=== PATIENT | female | born 1935 | race Caucasian/White ===

== ENCOUNTER 2016-08-05 12:11 | Observation (INO) ==
[2016-08-05 13:15] LABS: Bilirubin,Urine Negative (Negative); Blood,Urine Small (Negative); Clarity,Urine Cloudy (Clear); Color,Urine Yellow (Yellow); Glucose,Urine (UA) Normal (Normal); Ketones,Urine Negative (Negative); Leukocyte Esterase,Urine Trace (Negative); Nitrite,Urine Positive (Negative); Protein,Urine Negative (Neg-Trace); Specific Gravity,Urine 1.021 (1.010-1.025); Urobilinogen,Urine Normal (Normal)
[2016-08-05 13:17] LABS: Bacteria,Urine Many per hpf (None-Few); Hyaline Casts,Urine None Seen per lpf (None-Few); RBC,Urine 0-3 per hpf (0-3); Squamous Epithelial Cell,Urine Many per lpf (None-Few)
[2016-08-05 13:58] LABS: Basophils # 0.1 K/mcL (0.0-0.2); Basophils % 0.6 %; Eosinophils % 0.4 %; Hematocrit 35.3 % (35.3-44.9); Hemoglobin 11.7 g/dL (11.5-15.4); Lymphocytes # 1.7 K/mcL (0.6-4.6); Mean Corpuscular HGB Conc 33.1 g/dL (31.6-35.5); Mean Corpuscular Hemoglobin 32.9 pg (28.0-33.3); Mean Corpuscular Volume 99.2 fL (83.0-100.0); Mean Platelet Volume 9.1 fL (9.4-12.4); Monocytes # 0.6 K/mcL (0.0-1.3); Monocytes % 6.6 %; Neutrophils # 6.9 K/mcL (1.6-8.9); Platelet Count 331 K/mcL (140-400); Red Blood Count 3.56 M/mcL (3.82-4.97); Red Cell Distribution Width 13.6 % (11.5-14.5); Segmented Neutrophils % 73.4 %
[2016-08-05 14:09] LABS: BUN/Creatinine Ratio 23 (6-26); Blood Urea Nitrogen 17 mg/dL (7-20); Calcium 8.7 mg/dL (8.6-10.8); Carbon Dioxide 24 mEq/L (19-29); Chloride 105 mEq/L (98-109); Glucose 77 mg/dL (70-99); Osmolality,Calculated 282 (280-300); Sodium 136 mEq/L (136-145); eGFR For African Americans > 60 (> 60); eGFR For Non-African Americans > 60 (> 60)
--- NOTE | 2016-08-05 15:12 | Emergency Department Note ---
Disposition Clinical Impression: Urinary tract infection, Pleural effusion, Delirium due to another medical condition Disposition: Admitted As Inpatient Condition: Fair Referrals: NO,PCP [Primary Care Provider] - Forms: ED Satisfaction Letter Time of Disposition: 15:15 Altered Mental Status HPI - General Chief Complaint: ED Altered Mental Status Stated Complaint: AMS Time Seen by Provider: 08/05/16 12:34 Source: patient, EMS Limitations: altered mental status Nursing Notes Reviewed: Yes Vital Signs Reviewed: Yes - History of Present Illness HPI Narrative: 81-year-old female presents to emergency room for confusion. Family noticed her started getting confused last evening. They state she has been like this in the past and she has had urinary tract infections or just infections in general. Patient was sent in for evaluation. There is other johnson no reports of any vomiting or diarrhea. No chest pain or shortness of breath. No other complaints. No new medications. MD complaint: altered mental status, confusion Onset (ago): day(s) (1) Timing confirmed by: family member Pain Severity: moderate Pain Scale: 0 Consistency of Symptoms: waxing and waning Associated symptoms: Reports: denies other symptoms - Related Data Home Medications Medication Instructions Recorded Confirmed Citalopram [CeleXA] 20 mg PO QAM 09/14/15 04/06/16 Esomeprazole Magnesium [Nexium] 40 mg PO QPM 09/14/15 04/06/16 Metoprolol XL (24 HR) Succ [Toprol 50 mg PO QAM 09/14/15 04/06/16 Xl] Simvastatin [Zocor] 20 mg PO QPM 09/14/15 04/06/16 Albuterol Sulfate [Proair Hfa] 1 puff IH Q4-6H PRN 09/17/15 04/06/16 Budesonide/Formoterol 160/4.5 2 puff IH BIDR 09/17/15 04/06/16 [Symbicort 160/4.5] HYDROcodone/Acet 7.5/325 mg [[place] 1 tab PO QID PRN 09/17/15 04/06/16 7.5-325 mg] Albuterol Neb [Proventil Neb] 2.5 mg IH Q4HR 01/29/16 04/06/16 Magnesium Oxide [Magnesium] 400 mg PO DAILY 01/29/16 04/06/16 Donepezil [Aricept] 10 mg PO HS 04/06/16 04/06/16 Fluticasone Propionate Nasal 1 spray NS DAILY 04/06/16 04/06/16 [Flonase] Previous Rx's Medication Instructions Recorded Losartan/HCTZ [Hyzaar 50-12.5 1 tab PO QPM #0 04/07/16 Tablet] Nitrofurantoin (BID) [Macrobid] 100 mg PO BID #20 capsule 04/07/16 Allergies Allergy/AdvReac Type Severity Reaction Status Date / Time No Known Allergies Allergy Verified 09/14/15 10:06 Limitations: ROS unobtainable due to patients medical condition (Due to the patient's confusion) Past Medical History - Past Medical History Medical history: Reports: atrial fibrillation, COPD, dementia, hypertension Surgical history: Reports: orthopedic, other, other Psychiatric history: Reports: no psych history - Social History Smoking Status: Current every day smoker Smokeless Tobacco Status: No Alcohol use: Reports: none Drug use: Reports: none Physical Exam - General Limitations: altered mental status General appearance: alert, in no apparent distress - Head Head exam: atraumatic, normocephalic - Eye Eye exam: Present: normal appearance, PERRL, EOMI - ENT ENT exam: normal exam, normal oropharynx - Neck Neck exam: Present: normal inspection, full ROM, trachea midline - Chest Chest inspection: Present: normal inspection, symmetric chest wall rise - Respiratory Respiratory exam: Present: normal lung sounds bilaterally. Absent: respiratory distress - Cardiovascular Cardiovascular exam: Present: regular rate, normal rhythm - Abdominal Exam Abdominal exam: Present: soft, Non-Tender. Absent: tenderness - Extremities Exam Extremities exam: Present: normal inspection, full ROM, normal capillary refill. Absent: tenderness - Back Exam Back exam: Present: normal inspection - Neurological Exam Neurological exam: Present: alert, CN II-XII intact, other (Patient can tell you her name but she also tells her that she is 17 years old. She could tell me that she was in the emergency room.) - Psychiatric Psychiatric exam: Present: normal affect Course Course Narrative: Patient's lab work revealed evidence of urinary tract infection as well as a possible right sided lung infection. The radiologist noted some changes in the right lung associated with a right pleural effusion that could be infectious. Her urine had nitrites in it. I have ordered IV Rocephin. Spoke with the hospitalist. Patient will be admitted. Vital Signs Temperature 98.8 F 08/05/16 12:13 Pulse Rate 69 08/05/16 12:13 Respiratory Rate 14 08/05/16 12:13 Blood Pressure 140/69 08/05/16 12:13 O2 Sat by Pulse Oximetry 96 08/05/16 12:13 Temperature 98.8 F 08/05/16 12:13 Pulse Rate 64 08/05/16 13:54 Respiratory Rate 14 08/05/16 13:54 Blood Pressure 121/66 08/05/16 13:54 O2 Sat by Pulse Oximetry 96 08/05/16 13:54 Oxygen Delivery Oxygen Delivery Room Air Altered Mental Status - Medical Records Medical records reviewed: Yes I reviewed the patient's medical records. - Lab Data Lab results reviewed: Yes I reviewed the patient's lab results. Result diagrams: 08/05/16 13:52 08/05/16 13:52 Lab Results 08/05/16 08/05/16 08/05/16 Range/Units 13:10 13:52 13:52 WBC 9.4 (4.3-11.1) K/mcL RBC 3.56 L (3.82-4.97) M/mcL Hgb 11.7 (11.5-15.4) g/dL Hct 35.3 (35.3-44.9) % MCV 99.2 (83.0-100.0) fL MCH 32.9 (28.0-33.3) pg MCHC 33.1 (31.6-35.5) g/dL RDW 13.6 (11.5-14.5) % Plt Count 331 (140-400) K/mcL MPV 9.1 L (9.4-12.4) fL Immature Gran % 1.0 (0-4) % Seg Neutrophils % 73.4 % Lymphocytes % 18.0 % Monocytes % 6.6 % Eosinophils % 0.4 % Basophils % 0.6 % Neutrophils # 6.9 (1.6-8.9) K/mcL Lymphocytes # 1.7 (0.6-4.6) K/mcL Monocytes # 0.6 (0.0-1.3) K/mcL Eosinophils # 0.0 (0.0-0.6) K/mcL Basophils # 0.1 (0.0-0.2) K/mcL Sodium 136 (136-145) mEq/L Potassium 4.0 (3.5-4.5) mEq/L Chloride 105 (98-109) mEq/L Carbon Dioxide 24 (19-29) mEq/L BUN 17 (7-20) mg/dL Creatinine 0.73 (0.57-1.11) mg/dL Est GFR ( Amer) > 60 (> 60) Est GFR (Non-Af Amer) > 60 (> 60) BUN/Creatinine Ratio 23 (6-26) Glucose 77 (70-99) mg/dL Calculated Osmolality 282 (280-300) Calcium 8.7 (8.6-10.8) mg/dL Troponin I (0-0.03) ng/mL Urine Color Yellow (Yellow) Urine Clarity Cloudy A (Clear) Urine pH 5.0 (5.0-8.0) pH Units Ur Specific [place] 1.021 (1.010-1.025) Urine Protein Negative (Neg-Trace) mg/dL Urine Glucose (UA) Normal (Normal) mg/dL Urine Ketones Negative (Negative) mg/dL Urine Blood Small H (Negative) Urine Nitrite Positive A (Negative) Urine Bilirubin Negative (Negative) Urine Urobilinogen Normal (Normal) mg/dL Ur Leukocyte Esterase Trace H (Negative) Urine Microscopic RBC 0-3 (0-3) per hpf Urine Microscopic WBC 5-15 H (0-3) per hpf Ur Squamous Epith Cells Many H (None-Few) per lpf Urine Bacteria Many H (None-Few) per hpf Hyaline Casts None Seen (None-Few) per lpf Ur Culture Indicated? YES A (NO) 08/05/16 Range/Units 13:52 WBC (4.3-11.1) K/mcL RBC (3.82-4.97) M/mcL Hgb (11.5-15.4) g/dL Hct (35.3-44.9) % MCV (83.0-100.0) fL MCH (28.0-33.3) pg MCHC (31.6-35.5) g/dL RDW (11.5-14.5) % Plt Count (140-400) K/mcL MPV (9.4-12.4) fL Immature Gran % (0-4) % Seg Neutrophils % % Lymphocytes % % Monocytes % % Eosinophils % % Basophils % % Neutrophils # (1.6-8.9) K/mcL Lymphocytes # (0.6-4.6) K/mcL Monocytes # (0.0-1.3) K/mcL Eosinophils # (0.0-0.6) K/mcL Basophils # (0.0-0.2) K/mcL Sodium (136-145) mEq/L Potassium (3.5-4.5) mEq/L Chloride (98-109) mEq/L Carbon Dioxide (19-29) mEq/L BUN (7-20) mg/dL Creatinine (0.57-1.11) mg/dL Est GFR ( Amer) (> 60) Est GFR (Non-Af Amer) (> 60) BUN/Creatinine Ratio (6-26) Glucose (70-99) mg/dL Calculated Osmolality (280-300) Calcium (8.6-10.8) mg/dL Troponin I 0.02 (0-0.03) ng/mL Urine Color (Yellow) Urine Clarity (Clear) Urine pH (5.0-8.0) pH Units Ur Specific [place] (1.010-1.025) Urine Protein (Neg-Trace) mg/dL Urine Glucose (UA) (Normal) mg/dL Urine Ketones (Negative) mg/dL Urine Blood (Negative) Urine Nitrite (Negative) Urine Bilirubin (Negative) Urine Urobilinogen (Normal) mg/dL Ur Leukocyte Esterase (Negative) Urine Microscopic RBC (0-3) per hpf Urine Microscopic WBC (0-3) per hpf Ur Squamous Epith Cells (None-Few) per lpf Urine Bacteria (None-Few) per hpf Hyaline Casts (None-Few) per lpf Ur Culture Indicated? (NO) - Radiology Data Radiology results reviewed: Yes I reviewed the patient's radiology results. TPA Checklist - LKW: 3-4.5 hrs Add. Contraindications Patient/family understanding: The patient/family members have been counseled and understood the risk, benefit , and alternatives of treatment.
[2016-08-05] MEDS ORDERED: Ipratropium/Albuterol Neb 3 ML IH PRN (15:24)
[2016-08-05] MEDS ORDERED: Ibuprofen 400 MG TABLET PO PRN (15:25)
[2016-08-05] MEDS ORDERED: Ondansetron 4 MG/2 ML VIAL IVP PRN (15:25)
[2016-08-05] MEDS ORDERED: Naloxone 0.4 MG/ML INJ IVP PRN (15:25)
[2016-08-05] MEDS ORDERED: Acetaminophen 325 MG TABLET PO PRN (15:25)
--- NOTE | 2016-08-05 15:33 | Internal Med History&Physical ---
Date of Encounter: 08/05/16 Time of Encounter: 15:31 Assessment and Plan (1) Acute encephalopathy Current visit: No Status: Acute Acute metabolic encephalopathy likely secondary to urinary tract infection Send urine culture Continue Rocephin Fall precautions (2) Pleural effusion Current visit: Yes Status: Acute Right pleural effusion moderate in size Unknown etiology, check an echocardiogram Start Lasix IV, consider thoracentesis if not improving or CT scan of the chest (3) Urinary tract infection Current visit: Yes Status: Acute Qualifiers: Urinary tract infection type: acute cystitis Hematuria presence: without hematuria Qualified Code(s): N30.00 - Acute cystitis without hematuria (4) COPD (chronic obstructive pulmonary disease) with emphysema Current visit: No Status: Acute Chronic respiratory failure Continue DuoNeb and oxygen Qualifiers: Emphysema type: panlobular Qualified Code(s): J43.1 - Panlobular emphysema (5) Dementia Current visit: No Status: Chronic Qualifiers: Dementia type: unspecified type Dementia behavioral disturbance: without behavioral disturbance Qualified Code(s): F03.90 - Unspecified dementia without behavioral disturbance (6) Hypertension Current visit: No Status: Chronic Omeprazole for GI prophylaxis and suppertime his heparin for DVT prophylaxis. The patient will be admitted as inpatient, she is expected to stay more than 2 midnights. Full code. Time spent on this admission 45 minutes. She had risk for acute encephalopathy and right pleural effusion Qualifiers: Hypertension type: essential hypertension Qualified Code(s): I10 - Essential (primary) hypertension Internal Medicine - H&P: HPI Chief complaint: Altered mental status Admitted From: Emergency Dept History of present illness: Ms. Iqbal is a 81 year old female with a past medical history of dementia, COPD oxygen dependent, recurrent urinary tract infections discharged back in March 2016 which she was treated for acute metabolic encephalopathy due to UTI. Again she comes with some confusion that started last night and has been progressively getting worse. Her UA shows positive nitrates, 15 white blood cells and many bacteria. Also, her chest x-ray shows a right pleural effusion. CT scan of the head is unremarkable. The patient denies any complaints although she is disoriented in time and not as sharp as she usually eats according to her family members. Denies dysuria but has not been eating well. Unable to provide history Past Med Surg Social Fam HX - Past Medical History Medical history: atrial fibrillation (Not on anticoagulation), COPD (Oxygen dependent, mainly at night and as needed 2 L), dementia, hypertension, other ( Recurrent urinary tract infections with pansensitive Escherichia coli and Citrobacter, chronic respiratory failure, dementia, acute renal failure, hyperlipidemia, depression, tobacco use, recurrent falls) Psychiatric history: no psych history - Past Surgical History Surgical History: orthopedic, other, other (Right hip surgery, bladder surgery and carpal tunnel surgery) - Social History Smoking Status: Current every day smoker Packs per day: Used to smoke 2 packs per day, currently one cigarette daily Smokeless Tobacco Status: No Alcohol use: none Drug use: none - Family History Mother Living Status: Hx Family Cardiac Disorders: Yes (HTN) Hx Family Cancer: Yes Father Living Status: Hx Family Cardiac Disorders: Yes (hypertension) Hx Family Respiratory Disorders: Yes (TB) - Additional Family History Additional family history: Mother with hypertension and father with hypertension and tuberculosis Internal Medicine - H&P: Meds Citalopram [CeleXA] 20 mg PO QAM 09/14/15 [History] Esomeprazole Magnesium [Nexium] 40 mg PO QPM 09/14/15 [History] Metoprolol XL (24 HR) Succ [Toprol Xl] 50 mg PO QAM 09/14/15 [History] Simvastatin [Zocor] 20 mg PO QPM 09/14/15 [History] Albuterol Sulfate [Proair Hfa] 1 puff IH Q4-6H PRN 09/17/15 [History] Budesonide/Formoterol 160/4.5 [Symbicort 160/4.5] 2 puff IH BIDR 09/17/15 [ History] HYDROcodone/Acet 7.5/325 mg [[place] 7.5-325 mg] 1 tab PO QID PRN 09/17/15 [ History] Albuterol Neb [Proventil Neb] 2.5 mg IH Q4HR 01/29/16 [History] Magnesium Oxide [Magnesium] 400 mg PO DAILY 01/29/16 [History] Donepezil [Aricept] 10 mg PO HS 04/06/16 [History] Fluticasone Propionate Nasal [Flonase] 1 spray NS DAILY 04/06/16 [History] Losartan/HCTZ [Hyzaar 50-12.5 Tablet] 1 tab PO QPM #0 09/19/16 [Rx] Nitrofurantoin (BID) [Macrobid] 100 mg PO BID #20 capsule 04/07/16 [Rx] Allergies No Known Allergies Allergy (Verified 09/14/15 10:06) All Systems PM: A 10-system review of systems was performed and is negative for pertinent findings except as documented above in the HPI. Review of systems: Unable to complete review of systems due to the patient's confusion - Constitutional Vitals: Temp Pulse Resp BP Pulse Ox 98.8 F 66 14 135/61 95 08/05/16 12:13 08/05/16 15:26 08/05/16 15:26 08/05/16 15:26 08/05/16 15:26 General appearance: Present: A&O X 2, underweight - Head Head exam: Present: atraumatic, normocephalic - Eye Eye exam: Present: PERRL, conjuntiva pink, sclera anicteric Pupils: Present: PERRL - Neck Neck exam general surgery: Present: supple, trachea midline. Absent: lymphadenopathy - Respiratory Respiratory exam: Present: decreased breath sounds (Blunted breath sounds on the right base), CTAB. Absent: accessory muscle use, rales, rhonchi, wheezes - Cardiovascular Cardiovascular exam: Present: RRR, +S1, +S2. Absent: diastolic murmur, gallop, rubs, systolic murmur - GI/Abdominal GI/Abdominal exam: Present: normal bowel sounds, soft, no peritoneal signs. Absent: distended, tenderness - Extremities Exam Extremities exam: Present: warm, radial pulses palpable and symetrical. Absent : calf tenderness, cyanotic, pedal edema - Neurological Exam Neurological exam: Present: CN II-XII intact, no focal deficits. Absent: oriented X3, pronater drift, facial droop, speech deficit - Skin Skin exam: Present: dry, intact Internal Med - H&P Results - Labs CBC & Chem 7: 08/05/16 13:52 08/05/16 13:52 Labs: Short CBC 08/05/16 Range/Units 13:52 WBC 9.4 (4.3-11.1) K/mcL Hgb 11.7 (11.5-15.4) g/dL Hct 35.3 (35.3-44.9) % Plt Count 331 (140-400) K/mcL Neutrophils # 6.9 (1.6-8.9) K/mcL BMP 08/05/16 13:52 Sodium 136 Potassium 4.0 Chloride 105 Carbon Dioxide 24 BUN 17 Creatinine 0.73 Glucose 77 Calcium 8.7 Cardiac Enzymes 08/05/16 Range/Units 13:52 Troponin I 0.02 (0-0.03) ng/mL Urine 08/05/16 Range/Units 13:10 Urine Color Yellow (Yellow) Urine Clarity Cloudy A (Clear) Urine pH 5.0 (5.0-8.0) pH Units Ur Specific [place] 1.021 (1.010-1.025) Urine Protein Negative (Neg-Trace) mg/dL Urine Glucose (UA) Normal (Normal) mg/dL - Impressions ITS Impressions Chest X-Ray 08/05/16 12:45 IMPRESSION: Moderate right pleural effusion of uncertain etiology with compressive right basilar atelectasis D/ / Aj Devries MD / Aj Devries MD Interpreting Provider: Aj Devries MD Head CT 08/05/16 12:45 IMPRESSION: No acute intracranial abnormality. D/ / Aj Devries MD / Aj Devries MD Interpreting Provider: Aj Devries MD
[2016-08-05] MEDS: Ipratropium/Albuterol Neb 3 ML IH SCH ×2 (16:31→22:04)
[2016-08-05] MEDS: Furosemide 40 MG/4 ML VIAL IV SCH (16:33)
[2016-08-05] MEDS: Nicotine 21 MG PATCH.TD24 TD SCH (16:34)
[2016-08-05] MEDS: Losartan/HCTZ 50-12.5 TABLET PO SCH (18:04)
--- NOTE | 2016-08-05 18:04 | Electrocardiograph Report ---
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
[2016-08-05] MEDS: *HR* Heparin 5,000 UNIT/ML VIAL SQ SCH (21:36)
[2016-08-05] MEDS: Budesonide/Formoterol 160/4.5 MDI IH SCH (22:04)
[2016-08-06] MEDS: Ipratropium/Albuterol Neb 3 ML IH SCH ×4 (04:11→22:44)
[2016-08-06 06:14] LABS: BUN/Creatinine Ratio 25 (6-26); Blood Urea Nitrogen 20 mg/dL (7-20); Carbon Dioxide 20 mEq/L (19-29); Chloride 100 mEq/L (98-109); Chol/HDL Ratio 2.6 (0-4.9); Cholesterol 127 mg/dL (< 200); Glucose 76 mg/dL (70-99); HDL Cholesterol 49 mg/dL (40-59); LDL Cholesterol,Calculated 56 mg/dL (0-99); Osmolality,Calculated 283 (280-300); Potassium 3.3 mEq/L (3.5-4.5); Sodium 136 mEq/L (136-145); Triglycerides 111 mg/dL (< 150); eGFR For African Americans > 60 (> 60); eGFR For Non-African Americans > 60 (> 60)
[2016-08-06] MEDS: Nicotine 21 MG PATCH.TD24 TD SCH (09:25)
[2016-08-06] MEDS: Metoprolol XL (24 HR) Succ 50 MG TAB.ER.24H PO SCH (09:25)
[2016-08-06] MEDS: *HR* Heparin 5,000 UNIT/ML VIAL SQ SCH ×2 (09:26→21:28)
[2016-08-06] MEDS: Furosemide 40 MG/4 ML VIAL IV SCH (09:26)
[2016-08-06] MEDS: Budesonide/Formoterol 160/4.5 MDI IH SCH ×2 (10:08→22:44)
--- NOTE | 2016-08-06 10:26 | ECHO - Doppler Report ---
Echocardiogram Name: Juani Iqbal Date of Study: 08/05/2016 Date: 1935 Ht: 64.0 in Medical Record#: [id number] Age: 81 Wt: 94.0 lb Gender: Female BSA: 1.42 Order #: [id number] Location: [facility] Room #: 3B24 Reading Physician: Clemencia Williamson DO Medical Coding Manager: Brandi Meier RDCS Ordering Physician: Colten Alegria MD Primary Physician: None Indications: Right Pleural Effusion Impressions: Technically challenging study due to poor echo images. Only subcostal view was able to be obtained. LV systolic function is mildly reduced by quantification. RV size and function appear normal. No obvious valvular abnormalities although valves were not well visualized and Doppler interrogation was suboptimal. No evidence for pulmonary hypertension. Recommend repeat study when patient is able to cooperate. Findings: Study Quality * Technically sub-optimal due to poor echocardiographic windows. Only subcostal images were obtained. ECG Findings * Normal sinus rhythm. Aortic Valve * No aortic regurgitation. * Trileaflet aortic valve. * Mildly calcified aortic valve leaflets. * No aortic stenosis. Mitral Valve * No mitral regurgitation. * No mitral stenosis. * Not well visualized. Tricuspid Valve * Tricuspid valve not well visualized. * Trace tricuspid regurgitation. * Estimated RA pressure is 3 mmHg. * Estimated RVSP is 25 mmHg. * No pulmonary hypertension. Pulmonic Valve * Pulmonic valve is not well visualized. * No pulmonic stenosis. * No pulmonic regurgitation. Pulmonary Artery * Pulmonary artery not well visualized. Right Ventricle * Normal right ventricular structure and function. Left Atrium * Left atrium is not well visualized. Right Atrium * Right atrium is not well visualized. Left Ventricle * Mild left ventricular diastolic dysfunction. * Atypical septal motion. * Visually, LV function may be mildly reduced. By Baez method, LV systolic function is mildly reduced. * Unable to evaluate regional wall motion. Interatrial Septum * No evidence of PFO by color Doppler. IVC * Normal IVC dimensions and inspiratory collapse. Pericardium * There is no pericardial effusion present. Aorta * Not well visualized. History Hypertension Hypercholesteremia Family History of CAD 10/17/2013 a Previous Echo was performed. Measurements: BP: 124/ 71 2D Normal Values IVSd: .72 cm 0.6 - 1.0 cm LVIDd: 3.46 cm 3.7 - 5.6 cm LVPWd: .77 cm 0.6 - 1.1 cm LVIDs: 2.22 cm 1.5 - 3.6 cm %FS: 35.80 cm >25 % LA volume: 17 Mitral Valve Peak E:.58 m/sec Peak A:.97 m/sec E/A Ratio:0.6 Peak E' Lat Yuri:5.84 cm/s Peak E' Med Yuri:4.85 cm/s E/E' Lat Ratio:9.9 E/E' Med Ratio:12 Tricuspid Valve TV Regurg Peak Grad: 22.00mmHg TV Regurg Peak Yuri: 2.34m/sec Updated by Clemencia Williamson on 08/06/2016 10:13:54 AM electronically signed on 08/06/2016 10:20:20 AM with status of Final Wall Motion Levi: 1=Normal, 2=Hypokinesis, 3=Akinesis, 4=Dyskinesis, 5=Aneurysmal, 6=Hyperkinetic, X=Not Visualized (Blank)=Missing
--- NOTE | 2016-08-06 14:18 | Internal Med Progress Note ---
Date of Encounter: 08/06/16 Time of Encounter: 10:30 - Assessment and plan (1) Acute encephalopathy Current Visit: No Status: Acute Assessment and plan: Likely secondary to urinary tract infection. Son is present at the bedside and confirms that she is nowhere near back to her baseline. She is usually alert and oriented 3 with intermittent bouts of mild confusion. On examination, patient is sitting upright in bed with a blank stare on her face. She does not answer questions. She states she does not know where she is at, what year it is , or where she lives. Sensitivities pending on urine culture, not safe to be discharged in the meantime. OT and PT consultations pending. health services director on board as well. (2) Urinary tract infection Current Visit: Yes Status: Acute Assessment and plan: Preliminary report gram-negative rods, continue ceftriaxone, sensitivities pending. (3) Hypokalemia Current Visit: Yes Status: Acute Assessment and plan: mild, will replace and recheck in the am (4) Pleural effusion Current Visit: Yes Status: Acute Assessment and plan: Chest x-ray revealing moderate sized right-sided pleural effusion with compressive right basilar atelectasis. Respirations are even and easy and unlabored. Patient denies shortness of breath. Lungs clear to auscultation with good aeration. No indication for thoracentesis at this time, we will continue to monitor. ITS Impressions Chest X-Ray 08/05/16 12:45 IMPRESSION: Moderate right pleural effusion of uncertain etiology with compressive right basilar atelectasis D/ / Aj Devries MD / Aj Devries MD Interpreting Provider: Aj Devries MD (5) COPD (chronic obstructive pulmonary disease) with emphysema Current Visit: No Status: Chronic Assessment and plan: No acute exacerbation. Patient denies shortness of breath. No wheezing present on examination. Qualifiers: Emphysema type: panlobular Qualified Code(s): J43.1 - Panlobular emphysema (6) Chronic respiratory failure with hypoxia Current Visit: No Status: Acute Assessment and plan: Acute on chronic. At home, patient is on 2 L per nasal cannula as needed, continue supplemental oxygenation. She is currently tolerating room air. (7) DVT prophylaxis Current Visit: No Status: Acute Assessment and plan: subcutaneous heparin (8) Dementia Current Visit: No Status: Chronic Assessment and plan: Her son with whom she lives was present at the bedside. He states that for the most part she is alert and oriented 3 and intermittently gets confused on details but he states that she is nowhere near back to her baseline. On examination, patient alert and pleasantly confused. She is unable to answer any orientation questions and gave me a different last name for her, presumably her maiden name. Likely secondary to urinary tract infection, we will continue to trend. Qualifiers: Dementia type: unspecified type Dementia behavioral disturbance: without behavioral disturbance Qualified Code(s): F03.90 - Unspecified dementia without behavioral disturbance (9) Hypertension Current Visit: No Status: Chronic Assessment and plan: Controlled, we will continue to trend and adjust medications as indicated. Qualifiers: Hypertension type: essential hypertension Qualified Code(s): I10 - Essential (primary) hypertension - Subjective Interval history: Patient seen and examined. On examination, patient is sitting upright in bed. Patient is able to tell me that she is not in pain but is unable to answer any other questions. She states she thinks she lives with her mom. She is unsure if she breakfast. She does not know year it is. She does not do the president is. She does not now how old she is, she is not able to tell me what her birthday is. She stated her last name was different than what it is now, suspect her maiden name possibly - Constitutional Vitals: Temp Pulse Resp BP Pulse Ox 97.7 F 86 17 101/66 94 L 08/06/16 11:38 08/06/16 11:38 08/06/16 11:38 08/06/16 11:38 08/06/16 11:38 General appearance: Present: A&O X 0, pleasant, no acute distress, underweight. Absent: answers questions appropriately - Head Head exam: Present: atraumatic, normocephalic - Eye Eye exam: Present: PERRL, conjuntiva pink, sclera anicteric Pupils: Present: PERRL - Neck Neck exam general surgery: Present: supple, trachea midline. Absent: lymphadenopathy - Respiratory Respiratory exam: Present: decreased breath sounds. Absent: accessory muscle use, rales, respiratory distress, rhonchi, wheezes - Cardiovascular Cardiovascular exam: Present: RRR, +S1, +S2. Absent: diastolic murmur, gallop, rubs, systolic murmur - GI/Abdominal GI/Abdominal exam: Present: normal bowel sounds, soft, no peritoneal signs. Absent: distended, tenderness - Extremities Exam Extremities exam: Present: warm, radial pulses palpable and symetrical. Absent : calf tenderness, cyanotic, pedal edema - Neurological Exam Neurological exam: Present: alert (Pleasantly confused, oriented 0), altered, CN II-XII intact, no focal deficits, strengths equal and symetr throughout. Absent: pronater drift, facial droop, speech deficit - Skin Skin exam: Present: dry, intact, pallor, warm Internal Medicine: Result - Labs CBC & Chem 7: 08/05/16 13:52 08/06/16 04:08 Labs: BMP 08/06/16 04:08 Sodium 136 Potassium 3.3 L Chloride 100 Carbon Dioxide 20 BUN 20 Creatinine 0.80 Glucose 76 Calcium 9.0 Consult Discharge Plan - Plan Referrals: NO,PCP [Primary Care Provider] -
[2016-08-06] MEDS: Losartan/HCTZ 50-12.5 TABLET PO SCH (18:28)
[2016-08-07] MEDS: Ipratropium/Albuterol Neb 3 ML IH SCH ×4 (03:50→22:26)
[2016-08-07 04:47] LABS: BUN/Creatinine Ratio 29 (6-26); Blood Urea Nitrogen 27 mg/dL (7-20); Carbon Dioxide 26 mEq/L (19-29); Chloride 98 mEq/L (98-109); Glucose 94 mg/dL (70-99); Magnesium 1.6 mg/dL (1.6-2.6); Osmolality,Calculated 291 (280-300); Potassium 3.1 mEq/L (3.5-4.5); Sodium 138 mEq/L (136-145); eGFR For African Americans > 60 (> 60); eGFR For Non-African Americans 57 (> 60)
[2016-08-07] MEDS: Metoprolol XL (24 HR) Succ 50 MG TAB.ER.24H PO SCH (08:46)
[2016-08-07] MEDS: *HR* Heparin 5,000 UNIT/ML VIAL SQ SCH ×2 (08:47→20:29)
[2016-08-07] MEDS ORDERED: Potassium Chloride 40 MEQ, Lidocaine 1% 2 ML in D5% in Water 500 ML IVPB ONE (10:30)
[2016-08-07] MEDS: Budesonide/Formoterol 160/4.5 MDI IH SCH ×2 (11:24→22:26)
--- NOTE | 2016-08-07 14:50 | Internal Med Progress Note ---
Date of Encounter: 08/07/16 Time of Encounter: 10:30 - Assessment and plan (1) Acute encephalopathy Current Visit: No Status: Acute Assessment and plan: Patient remains confused however her mentation has improved slightly from yesterday. Yesterday, she essentially had a blank stare and was for the most part nonverbal. Today, she is more verbal and more interactive but remains pleasantly confused. We have verified with her family that her norm is alert and oriented 3 with intermittent bouts of confusion. She is improving but she is not back to her baseline. We will continue to monitor. OT and PT have recommended ECF placement. Chest x-ray revealing right-sided pleural effusion, no respiratory distress on examination. Head CT negative. Echocardiogram unremarkable and of low quality given that she was altered during the testing and unable to cooperate. ITS Impressions Chest X-Ray 08/05/16 12:45 IMPRESSION: Moderate right pleural effusion of uncertain etiology with compressive right basilar atelectasis D/ / Aj Devries MD / Aj Devries MD Interpreting Provider: Aj Devries MD Head CT 08/05/16 12:45 IMPRESSION: No acute intracranial abnormality. D/ / Aj Devries MD / Aj Devries MD Interpreting Provider: Aj Devries MD Echocardiogram impressions: Technically challenging study due to poor echo images. Only subcostal view was able to be obtained. LV systolic function is mildly reduced by quantification. RV size and function appear normal. No obvious valvular abnormalities although valves were not well visualized and Doppler interrogation was suboptimal. No evidence of pulmonary hypertension. Recommend repeat study when the patient is able to cooperate. 08/06/16 Likely secondary to urinary tract infection. Son is present at the bedside and confirms that she is nowhere near back to her baseline. She is usually alert and oriented 3 with intermittent bouts of mild confusion. On examination, patient is sitting upright in bed with a blank stare on her face. She does not answer questions. She states she does not know where she is at, what year it is , or where she lives. Sensitivities pending on urine culture, not safe to be discharged in the meantime. OT and PT consultations pending. director of food and beverage services on board as well. (2) Urinary tract infection Current Visit: Yes Status: Acute Assessment and plan: Pansensitive Escherichia coli, continue ceftriaxone. (3) Hypokalemia Current Visit: Yes Status: Acute Assessment and plan: Replacing, will recheck in the a.m. (4) Pleural effusion Current Visit: Yes Status: Acute Assessment and plan: Chest x-ray revealing moderate sized right-sided pleural effusion with compressive right basilar atelectasis. Respirations are even and easy and unlabored. Patient denies shortness of breath. Lungs clear to auscultation with good aeration. No indication for thoracentesis at this time, we will continue to monitor. ITS Impressions Chest X-Ray 08/05/16 12:45 IMPRESSION: Moderate right pleural effusion of uncertain etiology with compressive right basilar atelectasis D/ / Aj Devries MD / Aj Devries MD Interpreting Provider: Aj Devries MD (5) COPD (chronic obstructive pulmonary disease) with emphysema Current Visit: No Status: Chronic Assessment and plan: No acute exacerbation. Patient denies shortness of breath. No wheezing present on examination. Qualifiers: Emphysema type: panlobular Qualified Code(s): J43.1 - Panlobular emphysema (6) Chronic respiratory failure with hypoxia Current Visit: No Status: Acute Assessment and plan: Acute on chronic. At home, patient is on 2 L per nasal cannula as needed, continue supplemental oxygenation. She is currently tolerating room air. (7) DVT prophylaxis Current Visit: No Status: Acute Assessment and plan: subcutaneous heparin (8) Dementia Current Visit: No Status: Chronic Assessment and plan: Her son with whom she lives was present at the bedside. He states that for the most part she is alert and oriented 3 and intermittently gets confused on details but he states that she is nowhere near back to her baseline. On examination, patient alert and pleasantly confused. She is unable to answer any orientation questions and gave me a different last name for her, presumably her maiden name. Likely secondary to urinary tract infection, we will continue to trend. Qualifiers: Dementia type: unspecified type Dementia behavioral disturbance: without behavioral disturbance Qualified Code(s): F03.90 - Unspecified dementia without behavioral disturbance (9) Hypertension Current Visit: No Status: Chronic Assessment and plan: Controlled, we will continue to trend and adjust medications as indicated. Qualifiers: Hypertension type: essential hypertension Qualified Code(s): I10 - Essential (primary) hypertension (10) Protein-calorie malnutrition, severe Current Visit: Yes Status: Acute Assessment and plan: Ensure Plus 3 times a day and staff assist with meals. Mechanically altered diet with ground meat as the patient is edentulous - Subjective Interval history: Patient seen and examined. On examination, patient is sitting upright in bed. She is alert and interactive and pleasantly confused. She is able to converse better than yesterday but remains pleasantly confused. - Constitutional Vitals: Temp Pulse Resp BP Pulse Ox 97.6 F 67 18 108/63 93 L 08/07/16 11:06 08/07/16 11:06 08/07/16 11:25 08/07/16 11:06 08/07/16 11:25 General appearance: Present: A&O X 0, pleasant, no acute distress, underweight. Absent: answers questions appropriately - Head Head exam: Present: atraumatic, normocephalic - Eye Eye exam: Present: PERRL, conjuntiva pink, sclera anicteric Pupils: Present: PERRL - Neck Neck exam general surgery: Present: supple, trachea midline. Absent: lymphadenopathy - Respiratory Respiratory exam: Present: CTAB. Absent: accessory muscle use, rales, respiratory distress, rhonchi, wheezes - Cardiovascular Cardiovascular exam: Present: RRR, +S1, +S2. Absent: diastolic murmur, gallop, rubs, systolic murmur - GI/Abdominal GI/Abdominal exam: Present: normal bowel sounds, soft, no peritoneal signs. Absent: distended, tenderness - Extremities Exam Extremities exam: Present: warm, radial pulses palpable and symetrical. Absent : calf tenderness, cyanotic, pedal edema - Neurological Exam Neurological exam: Present: alert, altered, CN II-XII intact, no focal deficits , strengths equal and symetr throughout. Absent: pronater drift, facial droop, speech deficit - Skin Skin exam: Present: dry, intact, pallor, warm Internal Medicine: Result - Labs CBC & Chem 7: 08/05/16 13:52 08/07/16 03:47 Labs: BMP 08/07/16 03:47 Sodium 138 Potassium 3.1 L Chloride 98 Carbon Dioxide 26 BUN 27 H Creatinine 0.94 Glucose 94 Calcium 9.0 Consult Discharge Plan - Plan Referrals: NO,PCP [Primary Care Provider] -
[2016-08-07] MEDS: Losartan/HCTZ 50-12.5 TABLET PO SCH (17:11)
[2016-08-07] MEDS: Furosemide 40 MG/4 ML VIAL IV SCH (19:44)
[2016-08-08] MEDS: Ipratropium/Albuterol Neb 3 ML IH SCH ×4 (04:28→21:57)
[2016-08-08 05:22] LABS: BUN/Creatinine Ratio 27 (6-26); Blood Urea Nitrogen 24 mg/dL (7-20); Carbon Dioxide 25 mEq/L (19-29); Chloride 102 mEq/L (98-109); Glucose 103 mg/dL (70-99); Osmolality,Calculated 292 (280-300); Potassium 3.7 mEq/L (3.5-4.5); Sodium 139 mEq/L (136-145); eGFR For African Americans > 60 (> 60); eGFR For Non-African Americans > 60 (> 60)
[2016-08-08] MEDS: Metoprolol XL (24 HR) Succ 50 MG TAB.ER.24H PO SCH (08:55)
[2016-08-08] MEDS: *HR* Heparin 5,000 UNIT/ML VIAL SQ SCH ×2 (08:55→20:21)
[2016-08-08] MEDS: Budesonide/Formoterol 160/4.5 MDI IH SCH ×2 (10:39→21:57)
--- NOTE | 2016-08-08 13:26 | Internal Med Progress Note ---
Date of Encounter: 08/08/16 Time of Encounter: 10:00 - Assessment and plan (1) Acute encephalopathy Current Visit: No Status: Acute Assessment and plan: The patient continues to improve every day however she is not back to her baseline yet. First day, she could not tell us her name, second day she could not tell us her date or her last name, and today, day 3, she is able to tell us her for name and she is [facility] and she is aware that she is 81 years old. She is not oriented to time at this time. She is slowly improving. We will observe overnight and possibly transfer to ECF versus home with home health tomorrow pending clinical outcomes. OT has recommended ECF, PT has recommended home health. 08/07/16 Patient remains confused however her mentation has improved slightly from yesterday. Yesterday, she essentially had a blank stare and was for the most part nonverbal. Today, she is more verbal and more interactive but remains pleasantly confused. We have verified with her family that her norm is alert and oriented 3 with intermittent bouts of confusion. She is improving but she is not back to her baseline. We will continue to monitor. OT and PT have recommended ECF placement. Chest x-ray revealing right-sided pleural effusion, no respiratory distress on examination. Head CT negative. Echocardiogram unremarkable and of low quality given that she was altered during the testing and unable to cooperate. ITS Impressions Chest X-Ray 08/05/16 12:45 IMPRESSION: Moderate right pleural effusion of uncertain etiology with compressive right basilar atelectasis D/ / Aj Devries MD / Aj Devries MD Interpreting Provider: Aj Devries MD Head CT 08/05/16 12:45 IMPRESSION: No acute intracranial abnormality. D/ / Aj Devries MD / Aj Devries MD Interpreting Provider: Aj Devries MD Echocardiogram impressions: Technically challenging study due to poor echo images. Only subcostal view was able to be obtained. LV systolic function is mildly reduced by quantification. RV size and function appear normal. No obvious valvular abnormalities although valves were not well visualized and Doppler interrogation was suboptimal. No evidence of pulmonary hypertension. Recommend repeat study when the patient is able to cooperate. 08/06/16 Likely secondary to urinary tract infection. Son is present at the bedside and confirms that she is nowhere near back to her baseline. She is usually alert and oriented 3 with intermittent bouts of mild confusion. On examination, patient is sitting upright in bed with a blank stare on her face. She does not answer questions. She states she does not know where she is at, what year it is , or where she lives. Sensitivities pending on urine culture, not safe to be discharged in the meantime. OT and PT consultations pending. patient services technician on board as well. (2) Urinary tract infection Current Visit: Yes Status: Acute Assessment and plan: Pansensitive Escherichia coli, continue ceftriaxone. No known drug allergies. (3) Hypokalemia Current Visit: Yes Status: Resolved (4) Pleural effusion Current Visit: Yes Status: Acute Assessment and plan: Chest x-ray revealing moderate sized right-sided pleural effusion with compressive right basilar atelectasis. Respirations are even and easy and unlabored. Patient denies shortness of breath. Lungs clear to auscultation with good aeration. No indication for thoracentesis at this time, we will continue to monitor. We will get a repeat chest x-ray as the patient remains intermittently confused. On examination, her respirations are not labored. ITS Impressions Chest X-Ray 08/05/16 12:45 IMPRESSION: Moderate right pleural effusion of uncertain etiology with compressive right basilar atelectasis D/ / Aj Devries MD / Aj Devries MD Interpreting Provider: Aj Devries MD (5) COPD (chronic obstructive pulmonary disease) with emphysema Current Visit: No Status: Chronic Assessment and plan: No acute exacerbation. Patient denies shortness of breath. No wheezing present on examination. Qualifiers: Emphysema type: panlobular Qualified Code(s): J43.1 - Panlobular emphysema (6) Chronic respiratory failure with hypoxia Current Visit: No Status: Acute Assessment and plan: Acute on chronic. At home, patient is on 2 L per nasal cannula as needed, continue supplemental oxygenation. She is currently tolerating room air. (7) DVT prophylaxis Current Visit: No Status: Acute Assessment and plan: subcutaneous heparin (8) Dementia Current Visit: No Status: Chronic Assessment and plan: Her son with whom she lives was present at the bedside. He states that for the most part she is alert and oriented 3 and intermittently gets confused on details. She is slowly progressing back to her baseline. Likely secondary to urinary tract infection, we will continue to trend. Qualifiers: Dementia type: unspecified type Dementia behavioral disturbance: without behavioral disturbance Qualified Code(s): F03.90 - Unspecified dementia without behavioral disturbance (9) Hypertension Current Visit: No Status: Chronic Assessment and plan: Controlled, we will continue to trend and adjust medications as indicated. Qualifiers: Hypertension type: essential hypertension Qualified Code(s): I10 - Essential (primary) hypertension (10) Protein-calorie malnutrition, severe Current Visit: Yes Status: Acute Assessment and plan: Ensure Plus 3 times a day and staff assist with meals. Mechanically altered diet with ground meat as the patient is edentulous - Subjective Interval history: Patient seen and examined. On examination, patient is sitting upright in bed watching television. She is increasingly more and alert and interactive. She is aware that [facility] however she thinks that it is 1965 and she states that she has a daughter who is 16 years old. She has however aware that she is 81 years old. She denies pain at this time. She denies shortness of breath above her norm. She states that she is eating well and ate all of her breakfast. - Constitutional Vitals: Temp Pulse Resp BP Pulse Ox 97.5 F L 75 22 94/53 96 08/08/16 11:55 08/08/16 11:55 08/08/16 11:55 08/08/16 11:55 08/08/16 11:55 General appearance: Present: A&O X 2 (person and place), pleasant, no acute distress, underweight, answers questions appropriately (most questions but remains confused at times) - Head Head exam: Present: atraumatic, normocephalic - Eye Eye exam: Present: PERRL, conjuntiva pink, sclera anicteric Pupils: Present: PERRL - Neck Neck exam general surgery: Present: supple, trachea midline. Absent: lymphadenopathy - Respiratory Respiratory exam: Present: decreased breath sounds. Absent: accessory muscle use, rales, respiratory distress, rhonchi, wheezes - Cardiovascular Cardiovascular exam: Present: RRR, +S1, +S2. Absent: diastolic murmur, gallop, rubs, systolic murmur - GI/Abdominal GI/Abdominal exam: Present: normal bowel sounds, soft, no peritoneal signs. Absent: distended, tenderness - Extremities Exam Extremities exam: Present: warm, radial pulses palpable and symetrical. Absent : calf tenderness, cyanotic, pedal edema - Neurological Exam Neurological exam: Present: alert, CN II-XII intact, no focal deficits, strengths equal and symetr throughout. Absent: pronater drift, facial droop, speech deficit - Skin Skin exam: Present: dry, intact, pallor, warm Internal Medicine: Result - Labs CBC & Chem 7: 08/05/16 13:52 08/08/16 04:10 Labs: BMP 08/08/16 04:10 Sodium 139 Potassium 3.7 Chloride 102 Carbon Dioxide 25 BUN 24 H Creatinine 0.90 Glucose 103 H Calcium 9.0 Consult Discharge Plan - Plan Referrals: NO,PCP [Non-Partnered Physician] -
[2016-08-08] MEDS: Losartan/HCTZ 50-12.5 TABLET PO SCH (16:56)
[2016-08-08] MEDS: *HR* Morphine 2 MG/ML SYRINGE IV PRN (20:29)
[2016-08-09] MEDS: Ipratropium/Albuterol Neb 3 ML IH SCH ×4 (03:23→21:56)
[2016-08-09] MEDS: Budesonide/Formoterol 160/4.5 MDI IH SCH ×2 (09:17→21:56)
[2016-08-09] MEDS: Metoprolol XL (24 HR) Succ 50 MG TAB.ER.24H PO SCH (09:45)
[2016-08-09] MEDS: *HR* Heparin 5,000 UNIT/ML VIAL SQ SCH ×2 (09:45→22:37)
[2016-08-09] MEDS: Losartan/HCTZ 50-12.5 TABLET PO SCH (17:23)
--- NOTE | 2016-08-09 18:35 | Internal Med Progress Note ---
Date of Encounter: 08/09/16 Time of Encounter: 18:32 - Assessment and plan (1) Acute encephalopathy Current Visit: No Status: Acute Assessment and plan: Most likely secondary to UTI with baseline mild dementia. able to asnwer few questions for me but not totally oriented. being treated for UTI and as per prior notes have improved clincally in terms of mental status. OT has recommended ECF, PT has recommended home health. however, the son refuses any services at this time. (2) Chronic respiratory failure with hypoxia Current Visit: No Status: Acute Assessment and plan: Acute on chronic. At home, patient is on 2 L per nasal cannula as needed, continue supplemental oxygenation. She is currently tolerating room air. (3) Dementia Current Visit: No Status: Chronic Assessment and plan: Patient lives with her son. He states that for the most part she is alert and oriented 3 and intermittently gets confused on details. She is slowly progressing back to her baseline. Likely secondary to urinary tract infection, we will continue to trend. Qualifiers: Dementia type: unspecified type Dementia behavioral disturbance: without behavioral disturbance Qualified Code(s): F03.90 - Unspecified dementia without behavioral disturbance (4) Hypertension Current Visit: No Status: Chronic Assessment and plan: Controlled, we will continue to trend and adjust medications as indicated. Qualifiers: Hypertension type: essential hypertension Qualified Code(s): I10 - Essential (primary) hypertension (5) Urinary tract infection Current Visit: Yes Status: Acute Assessment and plan: Pansensitive Escherichia coli, continue ceftriaxone. No known drug allergies. Qualifiers: Urinary tract infection type: acute cystitis Hematuria presence: without hematuria Qualified Code(s): N30.00 - Acute cystitis without hematuria - Time Spent With Patient 25 - 35 minutes - Subjective Interval history: seen at the bedside, not very communicative, but denies any complaints. first encounter iwth the patient. being treated for AMS and UTI. - Constitutional Vitals: Temp Pulse Resp BP Pulse Ox 97.8 F 77 16 103/67 94 L 08/09/16 15:58 08/09/16 15:58 08/09/16 15:58 08/09/16 15:58 08/09/16 15:58 General appearance: Present: A&O X 2 (person and place), pleasant, no acute distress, underweight, answers questions appropriately (most questions but remains confused at times) Internal Medicine: Result - Labs CBC & Chem 7: 08/05/16 13:52 08/08/16 04:10 Consult Discharge Plan - Plan Referrals: Slime Laguna CNP [Primary Care Provider] - 08/13/16 3:00 pm
[2016-08-09] MEDS: *HR* Morphine 2 MG/ML SYRINGE IV PRN (22:46)
[2016-08-10] MEDS: Ipratropium/Albuterol Neb 3 ML IH SCH ×2 (05:05→10:53)
[2016-08-10 07:49] VITALS: BP 121/80
--- NOTE | 2016-08-10 09:39 | Discharge Summary ---
Date of Encounter: 08/10/16 Time of Encounter: 09:37 - Discharge Diagnosis (1) Acute encephalopathy Priority: Primary Status: Acute (2) Dementia Priority: Secondary Status: Chronic Qualifiers: Dementia type: unspecified type Dementia behavioral disturbance: without behavioral disturbance Qualified Code(s): F03.90 - Unspecified dementia without behavioral disturbance (3) Chronic respiratory failure with hypoxia Priority: Primary Status: Acute (4) Hypertension Priority: Secondary Status: Chronic Qualifiers: Hypertension type: essential hypertension Qualified Code(s): I10 - Essential (primary) hypertension (5) Urinary tract infection Priority: Primary Status: Acute Qualifiers: Urinary tract infection type: acute cystitis Hematuria presence: without hematuria Qualified Code(s): N30.00 - Acute cystitis without hematuria - Discharge Medications Prescriptions: Dronabinol [Marinol] 2.5 mg PO BIDLS #60 capsule Levofloxacin 500 mg PO DAILY #5 tablet Home Medications: Citalopram [CeleXA] 20 mg PO QAM 09/14/15 [History] Esomeprazole Magnesium [Nexium] 40 mg PO QPM 09/14/15 [History] Metoprolol XL (24 HR) Succ [Toprol Xl] 50 mg PO QAM 09/14/15 [History] Simvastatin [Zocor] 20 mg PO QPM 09/14/15 [History] Albuterol Sulfate [Proair Hfa] 1 puff IH Q4-6H PRN 09/17/15 [History] Budesonide/Formoterol 160/4.5 [Symbicort 160/4.5] 2 puff IH BIDR 09/17/15 [ History] HYDROcodone/Acet 7.5/325 mg [[place] 7.5-325 mg] 1 tab PO QID PRN 09/17/15 [ History] Albuterol Neb [Proventil Neb] 2.5 mg IH Q4HR 01/29/16 [History] Magnesium Oxide [Magnesium] 400 mg PO DAILY 01/29/16 [History] Donepezil [Aricept] 10 mg PO HS 04/06/16 [History] Fluticasone Propionate Nasal [Flonase] 1 spray NS DAILY 04/06/16 [History] Losartan/HCTZ [Hyzaar 50-12.5 Tablet] 1 tab PO QPM #0 04/07/16 [Rx] Dronabinol [Marinol] 2.5 mg PO BIDLS #60 capsule 08/10/16 [Rx] Levofloxacin 500 mg PO DAILY #5 tablet 08/10/16 [Rx] Allergies/Adverse Reactions: Allergies No Known Allergies Allergy (Verified 09/14/15 10:06) Date of admission: 08/05/16 15:34 Primary care physician: Slime Laguna CNP Consults: 08/06/16 14:15 Consult to Occupational Therapy [CONS] Routine Comment: Evaluate, develop and implement POC Discharging clinician: Johnna Amezcua Anticipated date of discharge: 08/10/16 - Patient Status Disposition: Home, Self-Care Condition: Fair Functional capacity at discharge: bed bound Overall status at discharge: patient is progressing back to baseline - Discharge Instructions Instructions: Urinary Tract Infection in Women (DC) Follow Up With: Slime Laguna CNP [Primary Care Provider] - 08/13/16 3:00 pm - Diet and Activity Activity: resume usual activities as tolerated Diet: other (mechanically altered diet) Interval History: Ms. Iqbal is a 81 year old female with a past medical history of dementia, COPD oxygen dependent, recurrent urinary tract infections discharged back in March 2016 which she was treated for acute metabolic encephalopathy due to UTI. Again she comes with some confusion that started last night and has been progressively getting worse. Her UA shows positive nitrates, 15 white blood cells and many bacteria. Also, her chest x-ray shows a right pleural effusion. CT scan of the head is unremarkable. The patient denies any complaints although she is disoriented in time and not as sharp as she usually is according to her family members. Denies dysuria but has not been eating well. Hospital course: she was admitted for Acute metabolic encephalopathy likely secondary to urinary tract infection. urine cx grew E> coli and she was treated with Iv rocephin. she showed mild imporvement with the treatment as she has baseline dementia with bouts of confusion at home as per the family. Head CT negative. Echocardiogram unremarkable and of low quality given that she was altered during the testing and unable to cooperate. she remained hemodynamically stable and afebrile, no leucocytosis. chest x-ray revealing moderate sized right-sided pleural effusion with compressive right basilar atelectasis. Respirations are even and easy and unlabored. Patient denies shortness of breath. Lungs clear to auscultation with good aeration. No indication for thoracentesis at this time OT and PT have recommended ECF placement.howevre the son refused ECF placement as well as any kind of HH services. SHE is thus being dc to home in stable condition. Time spent discussing smoking cessation with patient: more than 10 minutes - Time Spent with Patient Total time spent providing and/or coordinating discharge services: Greater than 30 minutes - Constitutional Vitals: Temp Pulse Resp BP Pulse Ox 97.7 F 64 14 121/80 97 08/10/16 07:48 08/10/16 07:48 08/10/16 07:48 08/10/16 07:48 08/10/16 07:48 General appearance: Present: A&O X 2 (person and place), pleasant, no acute distress, underweight, answers questions appropriately (most questions but remains confused at times) Exam: General appearance: Present: A&O X 2 (person and place), pleasant, no acute distress, underweight, answers questions appropriately (most questions but remains confused at times) - Head Head exam: Present: atraumatic, normocephalic - Eye Eye exam: Present: PERRL, conjuntiva pink, sclera anicteric Pupils: Present: PERRL - Neck Neck exam general surgery: Present: supple, trachea midline. Absent: lymphadenopathy - Respiratory Respiratory exam: Present: decreased breath sounds. Absent: accessory muscle use, rales, respiratory distress, rhonchi, wheezes - Cardiovascular Cardiovascular exam: Present: RRR, +S1, +S2. Absent: diastolic murmur, gallop, rubs, systolic murmur - GI/Abdominal GI/Abdominal exam: Present: normal bowel sounds, soft, no peritoneal signs. Absent: distended, tenderness - Extremities Exam Extremities exam: Present: warm, radial pulses palpable and symetrical. Absent : calf tenderness, cyanotic, pedal edema - Neurological Exam Neurological exam: Present: alert, CN II-XII intact, no focal deficits, strengths equal and symetr throughout. Absent: pronater drift, facial droop, speech deficit - Skin Skin exam: Present: dry, intact, pallor, warm
[2016-08-10] MEDS: Metoprolol XL (24 HR) Succ 50 MG TAB.ER.24H PO SCH (10:22)
[2016-08-10] MEDS: *HR* Heparin 5,000 UNIT/ML VIAL SQ SCH (10:22)
[2016-08-10] MEDS: Budesonide/Formoterol 160/4.5 MDI IH SCH (10:53)
== END 2016-08-10 11:10 | disposition home or self-care (01) ==
LOC: EMEROO 12:11 → 3BNU 12:11 → SUATTDRO 15:34 → 3BNU 15:54
PROVIDERS: ADMIT Nurse Practitioner Family; ATTEND Internal Medicine Endocrinology, Diabetes & Metabolism

== ENCOUNTER 2016-08-15 10:07 | Observation (INO) ==
[2016-08-15] MEDS ORDERED: 0.9 % Sodium Chloride 1,000 ML IVC ONE (10:31)
[2016-08-15 10:51] LABS: Basophils % 0.4 %; Eosinophils % 0.2 %; Hematocrit 37.3 % (35.3-44.9); Hemoglobin 12.1 g/dL (11.5-15.4); Immature Granulocytes % 1.2 % (0-4); Immature Platelets 2.6 % (1.1-6.1); Lymphocytes # 0.8 K/mcL (0.6-4.6); Lymphocytes % 7.7 %; Mean Corpuscular HGB Conc 32.4 g/dL (31.6-35.5); Mean Corpuscular Hemoglobin 32.7 pg (28.0-33.3); Mean Corpuscular Volume 100.8 fL (83.0-100.0); Monocytes # 0.7 K/mcL (0.0-1.3); Monocytes % 6.8 %; Neutrophils # 8.9 K/mcL (1.6-8.9); Platelet Count 305 K/mcL (140-400); Red Cell Distribution Width 13.8 % (11.5-14.5); Segmented Neutrophils % 83.7 %
--- NOTE | 2016-08-15 11:01 | Emergency Department Note ---
Disposition Clinical Impression: Altered mental status, TERRY (acute kidney injury), Hyponatremia, Azotemia Disposition: Admitted As Inpatient Condition: Fair General Adult HPI - General Chief complaint: ED Weakness Stated complaint: Weakness/Dizzy Time Seen by Provider: 08/15/16 10:17 Source: patient, EMS Limitations: no limitations Nursing Notes Reviewed: Yes Vital Signs Reviewed: Yes - History of Present Illness Pain Scale: 0 - Related Data Home Medications Medication Instructions Recorded Confirmed Citalopram [CeleXA] 20 mg PO QAM 09/14/15 08/15/16 Esomeprazole Magnesium [Nexium] 40 mg PO QPM 09/14/15 08/15/16 Metoprolol XL (24 HR) Succ [Toprol 50 mg PO QAM 09/14/15 08/15/16 Xl] Simvastatin [Zocor] 20 mg PO QPM 09/14/15 08/15/16 Albuterol Sulfate [Proair Hfa] 2 puff IH Q4-6H PRN 09/17/15 08/15/16 Budesonide/Formoterol 160/4.5 2 puff IH BIDR 09/17/15 08/15/16 [Symbicort 160/4.5] HYDROcodone/Acet 7.5/325 mg [[place] 1 tab PO QID PRN 09/17/15 08/15/16 7.5-325 mg] Albuterol Neb [Proventil Neb] 2.5 mg IH TID 01/29/16 08/15/16 Magnesium Oxide [Magnesium] 400 mg PO DAILY 01/29/16 08/15/16 Donepezil [Aricept] 10 mg PO HS 04/06/16 08/15/16 Fluticasone Propionate Nasal 1 spray NS DAILY PRN 04/06/16 08/15/16 [Flonase] Previous Rx's Medication Instructions Recorded Losartan/HCTZ [Hyzaar 50-12.5 1 tab PO QPM #0 04/07/16 Tablet] Allergies Allergy/AdvReac Type Severity Reaction Status Date / Time No Known Allergies Allergy Verified 09/14/15 10:06 Past Medical History - Past Medical History Medical history: Reports: atrial fibrillation, COPD, dementia, hyperlipidemia, hypertension, other Surgical history: Reports: orthopedic, other, other Psychiatric history: Reports: no psych history - Social History Smoking Status: Current every day smoker Smokeless Tobacco Status: No Alcohol use: Reports: none Drug use: Reports: none Physical Exam - General Limitations: no limitations General appearance: alert, in no apparent distress Course Vital Signs Temperature 97.7 F 08/15/16 10:09 Pulse Rate 77 08/15/16 10:09 Respiratory Rate 16 08/15/16 10:09 Blood Pressure 111/76 08/15/16 10:09 O2 Sat by Pulse Oximetry 99 08/15/16 10:09 Temperature 98.4 F 08/15/16 17:53 Pulse Rate 67 08/15/16 17:53 Respiratory Rate 18 08/15/16 17:53 Blood Pressure 103/62 08/15/16 17:53 O2 Sat by Pulse Oximetry 96 08/15/16 17:53 Oxygen Delivery Oxygen Delivery Room Air Medical Decision Making - MDM Narrative Medical decision making narrative: I examined this patient and my medical decision-making was reviewed with the [employer] OPERATOR/PA/Advanced Practice Nurse/Resident Physician. I agree with the documented findings, disposition and treatment plan as described except to the extent set forth below. Evaluate this patient with Dr. Martínez, I agree with his evaluation and management plan, I supervised the care of the patient that stay. Patient comes in today by EMS. She has had increasing weakness at home. She did recently hospitalized for UTI. She also has A. fib. She denies any pain. Denies any falls. The check her hospital records when she was here before started a workup on her to see if we can find a cause of this weakness. And reassess. On exam she has no focal deficits here. No signs of CVA. 1235 hrs.: Patient's labs are back and fairly unremarkable no pneumonia on her chest x-ray urinalysis looks good. We discussed with family the see if they feel like she needs to come in the hospital is able to go home. I spoke with social services director and they are to discuss with family also. 1400 hrs.: Spoke with social services director and family. They would like her placed. Were bringing her into the hospital since it appears that her dementia is worse. 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 Impression is worsening of dementia with acute mental status change. Recent hospitalization for UTI. Chest X-Ray 08/15/16 10:28 IMPRESSION: Pleuroparenchymal changes at the right lung base are improved from the comparison study with at least a persistent moderate pleural effusion. D/ / 08/15/2016 11:30:49 Ronald Faye MD / Emily Fraser Interpreting Provider: Ronald Faye MD Head CT 08/15/16 13:50 IMPRESSION: No acute intracranial abnormality. D/ / Atul Taylor MD / Atul Taylor MD Interpreting Provider: Atul Taylor MD - Lab Data Result diagrams: 08/15/16 10:44 08/15/16 10:44 Lab Results 08/15/16 08/15/16 08/15/16 Range/Units 10:23 10:44 10:44 WBC 10.6 (4.3-11.1) K/mcL RBC 3.70 L (3.82-4.97) M/mcL Hgb 12.1 (11.5-15.4) g/dL Hct 37.3 (35.3-44.9) % MCV 100.8 H (83.0-100.0) fL MCH 32.7 (28.0-33.3) pg MCHC 32.4 (31.6-35.5) g/dL RDW 13.8 (11.5-14.5) % Plt Count 305 (140-400) K/mcL MPV 10.0 (9.4-12.4) fL Immature Gran % 1.2 (0-4) % Seg Neutrophils % 83.7 % Lymphocytes % 7.7 % Monocytes % 6.8 % Eosinophils % 0.2 % Basophils % 0.4 % Neutrophils # 8.9 (1.6-8.9) K/mcL Lymphocytes # 0.8 (0.6-4.6) K/mcL Monocytes # 0.7 (0.0-1.3) K/mcL Eosinophils # 0.0 (0.0-0.6) K/mcL Basophils # 0.0 (0.0-0.2) K/mcL Immature Plt Fraction 2.6 (1.1-6.1) % Sodium 135 L (136-145) mEq/L Potassium 4.1 (3.5-4.5) mEq/L Chloride 101 (98-109) mEq/L Carbon Dioxide 20 (19-29) mEq/L BUN 35 H (7-20) mg/dL Creatinine 1.21 H (0.57-1.11) mg/dL Est GFR ( Amer) 52 L (> 60) Est GFR (Non-Af Amer) 43 L (> 60) BUN/Creatinine Ratio 29 H (6-26) Glucose 155 H (70-99) mg/dL POC Glucose 123 H (58-89) Calculated Osmolality 291 (280-300) Calcium 9.3 (8.6-10.8) mg/dL Troponin I (0-0.03) ng/mL Urine Color (Yellow) Urine Clarity (Clear) Urine pH (5.0-8.0) pH Units Ur Specific [place] (1.010-1.025) Urine Protein (Neg-Trace) mg/dL Urine Glucose (UA) (Normal) mg/dL Urine Ketones (Negative) mg/dL Urine Blood (Negative) Urine Nitrite (Negative) Urine Bilirubin (Negative) Urine Urobilinogen (Normal) mg/dL Ur Leukocyte Esterase (Negative) 08/15/16 08/15/16 Range/Units 10:44 11:45 WBC (4.3-11.1) K/mcL RBC (3.82-4.97) M/mcL Hgb (11.5-15.4) g/dL Hct (35.3-44.9) % MCV (83.0-100.0) fL MCH (28.0-33.3) pg MCHC (31.6-35.5) g/dL RDW (11.5-14.5) % Plt Count (140-400) K/mcL MPV (9.4-12.4) fL Immature Gran % (0-4) % Seg Neutrophils % % Lymphocytes % % Monocytes % % Eosinophils % % Basophils % % Neutrophils # (1.6-8.9) K/mcL Lymphocytes # (0.6-4.6) K/mcL Monocytes # (0.0-1.3) K/mcL Eosinophils # (0.0-0.6) K/mcL Basophils # (0.0-0.2) K/mcL Immature Plt Fraction (1.1-6.1) % Sodium (136-145) mEq/L Potassium (3.5-4.5) mEq/L Chloride (98-109) mEq/L Carbon Dioxide (19-29) mEq/L BUN (7-20) mg/dL Creatinine (0.57-1.11) mg/dL Est GFR ( Amer) (> 60) Est GFR (Non-Af Amer) (> 60) BUN/Creatinine Ratio (6-26) Glucose (70-99) mg/dL POC Glucose (58-89) Calculated Osmolality (280-300) Calcium (8.6-10.8) mg/dL Troponin I 0.02 (0-0.03) ng/mL Urine Color Yellow (Yellow) Urine Clarity Clear (Clear) Urine pH 5.0 (5.0-8.0) pH Units Ur Specific [place] 1.030 H (1.010-1.025) Urine Protein Negative (Neg-Trace) mg/dL Urine Glucose (UA) Normal (Normal) mg/dL Urine Ketones Negative (Negative) mg/dL Urine Blood Negative (Negative) Urine Nitrite Negative (Negative) Urine Bilirubin Negative (Negative) Urine Urobilinogen Normal (Normal) mg/dL Ur Leukocyte Esterase Negative (Negative)
[2016-08-15 11:03] LABS: Calcium 9.3 mg/dL (8.6-10.8); Potassium 4.1 mEq/L (3.5-4.5)
[2016-08-15 12:03] LABS: Bilirubin,Urine Negative (Negative); Blood,Urine Negative (Negative); Clarity,Urine Clear (Clear); Color,Urine Yellow (Yellow); Glucose,Urine (UA) Normal (Normal); Ketones,Urine Negative (Negative); Leukocyte Esterase,Urine Negative (Negative); Nitrite,Urine Negative (Negative); Protein,Urine Negative (Neg-Trace); Urobilinogen,Urine Normal (Normal)
[2016-08-15] MEDS ORDERED: Ipratropium/Albuterol Neb 3 ML IH ONE (12:32)
[2016-08-15] MEDS ORDERED: Ipratropium/Albuterol Neb 3 ML ONE (12:34)
--- NOTE | 2016-08-15 12:38 | Emergency Department Note ---
Disposition Clinical Impression: TERRY (acute kidney injury), Hyponatremia, Azotemia Altered mental status Qualifiers: Altered mental status type: disorientation Qualified Code(s): R41.0 - Disorientation, unspecified Disposition: Admitted As Inpatient Condition: Fair Referrals: Slime Laguna HYSTER MACHINE OPERATOR [Primary Care Provider] - Forms: ED Satisfaction Letter Time of Disposition: 15:49 General Adult HPI - General Chief complaint: ED Weakness Stated complaint: Weakness/Dizzy Time Seen by Provider: 08/15/16 10:17 Source: patient, EMS Limitations: no limitations Nursing Notes Reviewed: Yes Vital Signs Reviewed: Yes - History of Present Illness HPI Narrative: Condition is an 81-year-old female who presents with confusion and weakness. Patient recently treated for UTI for which she was hospitalized for altered mental status secondary to UTI. Patient has been feeling weak since then. Patient was fine last night but woke up today confused. Patient has a record of dementia. Pain Scale: 0 - Related Data Home Medications Medication Instructions Recorded Confirmed Citalopram [CeleXA] 20 mg PO QAM 09/14/15 08/05/16 Esomeprazole Magnesium [Nexium] 40 mg PO QPM 09/14/15 08/05/16 Metoprolol XL (24 HR) Succ [Toprol 50 mg PO QAM 09/14/15 08/05/16 Xl] Simvastatin [Zocor] 20 mg PO QPM 09/14/15 08/05/16 Albuterol Sulfate [Proair Hfa] 1 puff IH Q4-6H PRN 09/17/15 08/05/16 Budesonide/Formoterol 160/4.5 2 puff IH BIDR 09/17/15 08/05/16 [Symbicort 160/4.5] HYDROcodone/Acet 7.5/325 mg [[place] 1 tab PO QID PRN 09/17/15 08/05/16 7.5-325 mg] Albuterol Neb [Proventil Neb] 2.5 mg IH Q4HR 01/29/16 08/05/16 Magnesium Oxide [Magnesium] 400 mg PO DAILY 01/29/16 08/05/16 Donepezil [Aricept] 10 mg PO HS 04/06/16 08/05/16 Fluticasone Propionate Nasal 1 spray NS DAILY 04/06/16 08/05/16 [Flonase] Previous Rx's Medication Instructions Recorded Losartan/HCTZ [Hyzaar 50-12.5 1 tab PO QPM #0 04/07/16 Tablet] Allergies Allergy/AdvReac Type Severity Reaction Status Date / Time No Known Allergies Allergy Verified 09/14/15 10:06 All systems ED: reviewed and negative except as stated. Constitutional: Reports: weakness. Denies: fever, chills Eyes: Denies: vision change ENT ED: Denies: ear pain, throat pain, congestion Cardiovascular: Denies: chest pain, palpitations, syncope Respiratory: Denies: cough, dyspnea, wheezes Gastrointestinal: Denies: abdominal pain, nausea, vomiting Genitourinary: Denies: urgency, dysuria, frequency Musculoskeletal: Denies: back pain, neck pain, joint swelling, arthralgia, myalgia Integumentary: Denies: rash Neurological: Reports: confusion. Denies: headache Past Medical History - Past Medical History Medical history: Reports: atrial fibrillation, COPD, dementia, hyperlipidemia, hypertension, other Surgical history: Reports: orthopedic, other, other Psychiatric history: Reports: no psych history - Social History Smoking Status: Current every day smoker Smokeless Tobacco Status: No Alcohol use: Reports: none Drug use: Reports: none Physical Exam Vital Signs Temperature 97.7 F 08/15/16 10:09 Pulse Rate 77 08/15/16 10:09 Respiratory Rate 16 08/15/16 10:09 Blood Pressure 111/76 08/15/16 10:09 O2 Sat by Pulse Oximetry 99 08/15/16 10:09 Temperature 97.7 F 08/15/16 10:09 Pulse Rate 71 08/15/16 15:49 Respiratory Rate 16 08/15/16 15:49 Blood Pressure 91/60 08/15/16 15:49 O2 Sat by Pulse Oximetry 98 08/15/16 15:49 Oxygen Delivery Oxygen Delivery Room Air -General Appearance: Patient is a 81-year-old female who is alert to name only. She is comfortable but confused -Neurological exam: Cranial nerves II-12 intact, no focal deficits observed, strength equal 5/5 bilaterally in upper and lower extremities, cerebellar motion test negative. Patient able to alternate touch her nose with her index finger, patient able to stroke her mos[place] with opposite heel bilaterally Negative loss of sensation - Head Head exam: atraumatic, normocephalic, normal inspection - Eye Eye exam: Present: normal appearance, PERRL, EOMI, negative for scleral icterus negative for conjunctival pallor - ENT ENT exam: normal exam, normal oropharynx, mucous membranes moist - Neck Neck exam: Present: normal inspection, full ROM, trachea midline, negative JVD - Chest Chest inspection: Present: Patient has bilateral equal rise and fall of chest wall. Non-tender to palpation. - Respiratory Respiratory exam: Patient has wheezes in bilateral lung ruelas Cardiovascular Cardiovascular exam: Present: regular rate, normal rhythm, normal heart sounds, without murmurs rubs or gallops. - Abdominal Exam Abdominal exam: Present: soft, nondistended, Non-Tender light and deep palpation in all quadrants. Bowel sounds normoactive throughout all 4 quadrants. Negative for hyper or hyperresonance. - Extremities Exam Extremities exam: Present: normal inspection, full ROM assistance equal bilateral at radial and pedal pulses - Back Exam Back exam: Present: normal inspection, full ROM. Absent: tenderness, CVA tenderness (R), CVA tenderness (L) - Psychiatric Psychiatric exam: Present: normal affect, normal mood - Skin Skin exam: Present: warm, dry, intact, normal color - General Limitations: no limitations General appearance: alert, in no apparent distress Course Course Narrative: She was seen and examined. CBC, BMP, troponin, UA, chest x-ray ordered. - Reevaluation(s) Reevaluation #1: Pt states she has no change in symptoms. Pt has wheezing and Duoneb is ordered. Time: 12:33 Reevaluation #2: PT states she feel the same, and still confused Time: 13:15 Reevaluation #3: No change in P's confusion. sent for CT head. Time: 13:50 Additional Reevaluation(s): Pt Head T shows no intracranial abnormalities. Family was updated. The patient still is altered. Working on admission. 1530hrs - Consultations Consultation #1: Admitted to [facility], 1542hrs Time: 15:42 Vital Signs Temperature 97.7 F 08/15/16 10:09 Pulse Rate 77 08/15/16 10:09 Respiratory Rate 16 08/15/16 10:09 Blood Pressure 111/76 08/15/16 10:09 O2 Sat by Pulse Oximetry 99 08/15/16 10:09 Temperature 97.7 F 08/15/16 10:09 Pulse Rate 70 08/15/16 12:10 Respiratory Rate 16 08/15/16 12:10 Blood Pressure 99/61 08/15/16 12:10 O2 Sat by Pulse Oximetry 98 08/15/16 12:10 Oxygen Delivery Oxygen Delivery Room Air Medical Decision Making - MDM Narrative Medical decision making narrative: Admitted to [facility], 1542hrs patient presents status post admission 5 days for acute encephalopathy secondary to UTI. Since discharge patient has been feeling weak. Patient's family states that yesterday patient was fine mentally. This morning patient woke up confused. Patient was brought to the ED. Patient's condition is concerning for effusion secondary to infectious source possible UTI possible pneumonia. CBC showed no abnormalities, BNP showed a treatment at 135, BUN 35 azotemia, creatinine 1.214 TERRY. Head negative for intracranial abnormalities. Recommend admission Admitted to [facility], 1542hrs - Medical Records Medical records reviewed: Yes I reviewed the patient's medical records. - Lab Data Lab results reviewed: Yes I reviewed the patient's lab results. Lab results narrative: Short CBC 08/15/16 Range/Units 10:44 WBC 10.6 (4.3-11.1) K/mcL Hgb 12.1 (11.5-15.4) g/dL Hct 37.3 (35.3-44.9) % Plt Count 305 (140-400) K/mcL Neutrophils # 8.9 (1.6-8.9) K/mcL BMP 08/15/16 Range/Units 10:44 Sodium 135 L (136-145) mEq/L Potassium 4.1 (3.5-4.5) mEq/L Chloride 101 (98-109) mEq/L Carbon Dioxide 20 (19-29) mEq/L BUN 35 H (7-20) mg/dL Creatinine 1.21 H (0.57-1.11) mg/dL Glucose 155 H (70-99) mg/dL Calcium 9.3 (8.6-10.8) mg/dL Cardiac Enzymes 08/15/16 Range/Units 10:44 Troponin I 0.02 (0-0.03) ng/mL Urine 08/15/16 Range/Units 11:45 Urine Color Yellow (Yellow) Urine Clarity Clear (Clear) Urine pH 5.0 (5.0-8.0) pH Units Ur Specific [place] 1.030 H (1.010-1.025) Urine Protein Negative (Neg-Trace) mg/dL Urine Glucose (UA) Normal (Normal) mg/dL Result diagrams: 08/15/16 10:44 08/15/16 10:44 Lab Results 08/15/16 08/15/16 08/15/16 Range/Units 10:23 10:44 10:44 WBC 10.6 (4.3-11.1) K/mcL RBC 3.70 L (3.82-4.97) M/mcL Hgb 12.1 (11.5-15.4) g/dL Hct 37.3 (35.3-44.9) % MCV 100.8 H (83.0-100.0) fL MCH 32.7 (28.0-33.3) pg MCHC 32.4 (31.6-35.5) g/dL RDW 13.8 (11.5-14.5) % Plt Count 305 (140-400) K/mcL MPV 10.0 (9.4-12.4) fL Immature Gran % 1.2 (0-4) % Seg Neutrophils % 83.7 % Lymphocytes % 7.7 % Monocytes % 6.8 % Eosinophils % 0.2 % Basophils % 0.4 % Neutrophils # 8.9 (1.6-8.9) K/mcL Lymphocytes # 0.8 (0.6-4.6) K/mcL Monocytes # 0.7 (0.0-1.3) K/mcL Eosinophils # 0.0 (0.0-0.6) K/mcL Basophils # 0.0 (0.0-0.2) K/mcL Immature Plt Fraction 2.6 (1.1-6.1) % Sodium 135 L (136-145) mEq/L Potassium 4.1 (3.5-4.5) mEq/L Chloride 101 (98-109) mEq/L Carbon Dioxide 20 (19-29) mEq/L BUN 35 H (7-20) mg/dL Creatinine 1.21 H (0.57-1.11) mg/dL Est GFR ( Amer) 52 L (> 60) Est GFR (Non-Af Amer) 43 L (> 60) BUN/Creatinine Ratio 29 H (6-26) Glucose 155 H (70-99) mg/dL POC Glucose 123 H (58-89) Calculated Osmolality 291 (280-300) Calcium 9.3 (8.6-10.8) mg/dL Troponin I (0-0.03) ng/mL Urine Color (Yellow) Urine Clarity (Clear) Urine pH (5.0-8.0) pH Units Ur Specific [place] (1.010-1.025) Urine Protein (Neg-Trace) mg/dL Urine Glucose (UA) (Normal) mg/dL Urine Ketones (Negative) mg/dL Urine Blood (Negative) Urine Nitrite (Negative) Urine Bilirubin (Negative) Urine Urobilinogen (Normal) mg/dL Ur Leukocyte Esterase (Negative) 08/15/16 08/15/16 Range/Units 10:44 11:45 WBC (4.3-11.1) K/mcL RBC (3.82-4.97) M/mcL Hgb (11.5-15.4) g/dL Hct (35.3-44.9) % MCV (83.0-100.0) fL MCH (28.0-33.3) pg MCHC (31.6-35.5) g/dL RDW (11.5-14.5) % Plt Count (140-400) K/mcL MPV (9.4-12.4) fL Immature Gran % (0-4) % Seg Neutrophils % % Lymphocytes % % Monocytes % % Eosinophils % % Basophils % % Neutrophils # (1.6-8.9) K/mcL Lymphocytes # (0.6-4.6) K/mcL Monocytes # (0.0-1.3) K/mcL Eosinophils # (0.0-0.6) K/mcL Basophils # (0.0-0.2) K/mcL Immature Plt Fraction (1.1-6.1) % Sodium (136-145) mEq/L Potassium (3.5-4.5) mEq/L Chloride (98-109) mEq/L Carbon Dioxide (19-29) mEq/L BUN (7-20) mg/dL Creatinine (0.57-1.11) mg/dL Est GFR ( Amer) (> 60) Est GFR (Non-Af Amer) (> 60) BUN/Creatinine Ratio (6-26) Glucose (70-99) mg/dL POC Glucose (58-89) Calculated Osmolality (280-300) Calcium (8.6-10.8) mg/dL Troponin I 0.02 (0-0.03) ng/mL Urine Color Yellow (Yellow) Urine Clarity Clear (Clear) Urine pH 5.0 (5.0-8.0) pH Units Ur Specific [place] 1.030 H (1.010-1.025) Urine Protein Negative (Neg-Trace) mg/dL Urine Glucose (UA) Normal (Normal) mg/dL Urine Ketones Negative (Negative) mg/dL Urine Blood Negative (Negative) Urine Nitrite Negative (Negative) Urine Bilirubin Negative (Negative) Urine Urobilinogen Normal (Normal) mg/dL Ur Leukocyte Esterase Negative (Negative) - Radiology Data Radiology results reviewed: Yes I reviewed the patient's radiology results. Chest X-Ray 08/15/16 10:28 IMPRESSION: Pleuroparenchymal changes at the right lung base are improved from the comparison study with at least a persistent moderate pleural effusion. D/ / 08/15/2016 11:30:49 Ronald Faye MD / Emily Fraser Interpreting Provider: Ronald Faye MD Head CT 08/15/16 13:50 IMPRESSION: No acute intracranial abnormality. D/ / Atul Taylor MD / Atul Taylor MD Interpreting Provider: Atul Taylor MD - EKG Data EKG #1 EKG attestation: Yes I reviewed and interpreted this EKG. EKG results narrative: EKG taken 08/15/2016 at 1019 hrs. shows a sinus rhythm at 73 bpm with a left bundle-branch block. Previous EKG taken generous 2016 shows a sinus rhythm at 84 beats 64 bpm which also shows left bundle.
[2016-08-15] MEDS ORDERED: *HR* Promethazine 25 MG/ML VIAL IVP PRN (15:54)
[2016-08-15] MEDS ORDERED: 0.9 % Sodium Chloride 500 ML IVC ONE (15:56)
--- NOTE | 2016-08-15 17:00 | Internal Med History&Physical ---
Date of Encounter: 08/15/16 Time of Encounter: 16:56 Assessment and Plan (1) TERRY (acute kidney injury) Current visit: Yes Status: Acute Patient has acute kidney injury, likely secondary to dehydration due to poor oral intake Will give IV fluids and encourage by mouth hydration. Monitor kidney function test tomorrow in a.m. Avoid nephrotoxic agents. We will obtain a consultation with both physical therapy and local patient had therapy, reevaluation by rn social services for possible placement. According to the notes by the rn social services Department in the ER, the patient has been already accepted to go to [facility] upon discharge. (2) Altered mental status Current visit: Yes Status: Acute Patient with underlying dementia, with worsening mental status likely secondary to dehydration. No evidence of infection at this point. No acute changes in the head CT without contrast. We will continue monitoring closely. Qualifiers: Altered mental status type: disorientation Qualified Code(s): R41.0 - Disorientation, unspecified (3) Hyponatremia Current visit: Yes Status: Acute Internal Medicine - H&P: HPI Chief complaint: confusion Admitted From: Emergency Dept Plans for Post Hospital Care: Transfer [facility] History of present illness: Ms. Iqbal is a 81 year old female with past medical history of atrial fibrillation, COPD, dementia, hypertension, chronic active smoker. The patient was recently discharged from this facility. She was admitted a few days ago for UTI, which was sensitive to almost all the antibiotics, she was discharged home with Levaquin. Initially, however she was offered to go to subacute rehabilitation center, but the patient's son declined the services. The patient has been weak, complaining of poor appetite for the last couple of days, is confused, denies fever, diarrhea, shortness of breath, chest pain. She was evaluated in the emergency department, workup was essentially unremarkable. She had a urinalysis which was within normal limits, head CT without IV contrast was obtained, no acute changes. Chest x-ray was essentially without change compared to prior studies. Biochemistry revealed some acute kidney injury with a BUN of 35 and creatinine of 1.21. The patient was evaluated by rn social services to the emergency department, she has been already approved for transfer to subacute rehabilitation center once stable. The patient will be admitted for hydration with IV fluids, we will obtain a consultation with physical therapy and was transferred to subacute rehabilitation center upon discharge. The patient at this moment for code. Past Med Surg Social Fam HX - Past Medical History Medical history: atrial fibrillation, COPD, dementia, hyperlipidemia, hypertension, other Psychiatric history: no psych history - Past Surgical History Surgical History: orthopedic, other, other - Social History Smoking Status: Current every day smoker Smokeless Tobacco Status: No Alcohol use: none Drug use: none - Family History Mother Living Status: Hx Family Cardiac Disorders: Yes (HTN) Hx Family Cancer: Yes Father Living Status: Hx Family Cardiac Disorders: Yes (hypertension) Hx Family Respiratory Disorders: Yes (TB) Internal Medicine - H&P: Meds Citalopram [CeleXA] 20 mg PO QAM 09/14/15 [History] Esomeprazole Magnesium [Nexium] 40 mg PO QPM 09/14/15 [History] Metoprolol XL (24 HR) Succ [Toprol Xl] 50 mg PO QAM 09/14/15 [History] Simvastatin [Zocor] 20 mg PO QPM 09/14/15 [History] Albuterol Sulfate [Proair Hfa] 2 puff IH Q4-6H PRN 09/17/15 [History] Budesonide/Formoterol 160/4.5 [Symbicort 160/4.5] 2 puff IH BIDR 09/17/15 [ History] HYDROcodone/Acet 7.5/325 mg [[place] 7.5-325 mg] 1 tab PO QID PRN 09/17/15 [ History] Albuterol Neb [Proventil Neb] 2.5 mg IH TID 01/29/16 [History] Magnesium Oxide [Magnesium] 400 mg PO DAILY 01/29/16 [History] Donepezil [Aricept] 10 mg PO HS 04/06/16 [History] Fluticasone Propionate Nasal [Flonase] 1 spray NS DAILY PRN 04/06/16 [History] Losartan/HCTZ [Hyzaar 50-12.5 Tablet] 1 tab PO QPM #0 04/07/16 [Rx] Allergies No Known Allergies Allergy (Verified 09/14/15 10:06) ROS unobtainable: due to mental status All Systems PM: A 10-system review of systems was performed and is negative for pertinent findings except as documented above in the HPI. - Constitutional Constitutional: no chills, no fever(s), no night sweats - EENT Eyes: no change in vision, no discharge, no pain, no photophobia Ears: no ear discharge, no ear pain, no tinnitus Nose, mouth and throat: no dysphagia, no nasal discharge, no neck pain, no sore throat - Cardiovascular Cardiovascular ROS IM: no chest pain, no diaphoresis, no dyspnea, no lightheadedness, no palpitations, no syncope - Respiratory Respiratory: no cough, no dyspnea, no wheezing, no excessive phlegm production - Gastrointestinal Gastrointestinal: no abdominal pain, no diarrhea, no hematemesis, no hematochezia, no melena, no nausea, no vomiting - Genitourinary Genitourinary: no change in urinary stream, no dysuria, no flank pain, no hematuria - Musculoskeletal Musculoskeletal ROS IM: no numbness, no tingling - Integumentary Integumentary IM: no rash, no unusual bruising - Neurological Neurological ROS: no confusion, no convulsions, no focal weakness, no numbness, no tingling, no tremor(s) - Hematologic/Lymphatic Hematologic/Lymphatic: no easy bruising - Constitutional Vitals: Temp Pulse Resp BP Pulse Ox 97.7 F 71 16 91/60 98 08/15/16 10:09 08/15/16 15:49 08/15/16 15:49 08/15/16 15:49 08/15/16 15:49 General appearance: Present: cooperative, A&O X 2, pleasant, underweight - Head Head exam: Present: atraumatic, normocephalic - Eye Eye exam: Present: PERRL, conjuntiva pink, sclera anicteric Pupils: Present: PERRL - Neck Neck exam general surgery: Present: supple, trachea midline. Absent: lymphadenopathy - Respiratory Respiratory exam: Present: CTAB. Absent: accessory muscle use, rales, rhonchi, wheezes - Cardiovascular Cardiovascular exam: Present: RRR, +S1, +S2. Absent: diastolic murmur, gallop, rubs, systolic murmur - GI/Abdominal GI/Abdominal exam: Present: normal bowel sounds, soft, no peritoneal signs. Absent: distended, tenderness - Extremities Exam Extremities exam: Present: warm, radial pulses palpable and symetrical. Absent : calf tenderness, cyanotic, pedal edema - Neurological Exam Neurological exam: Present: CN II-XII intact, no focal deficits. Absent: pronater drift, facial droop, speech deficit Additional comments: underlying dementia - Skin Skin exam: Present: dry, intact Internal Med - H&P Results - Labs CBC & Chem 7: 08/15/16 10:44 08/15/16 10:44
[2016-08-15] MEDS ORDERED: Ondansetron 4 MG/2 ML VIAL IVP PRN (17:04)
[2016-08-15] MEDS ORDERED: Naloxone 0.4 MG/ML INJ IVP PRN (17:04)
[2016-08-15] MEDS: Acetaminophen 325 MG TABLET PO PRN (17:53)
[2016-08-15] MEDS: *HR* Heparin 5,000 UNIT/ML VIAL SQ SCH (17:53)
[2016-08-15] MEDS: Famotidine 20 MG/2 ML VIAL IVP SCH (17:53)
[2016-08-15] MEDS: 0.9 % Sodium Chloride 1,000 ML IVC SCH (17:54)
[2016-08-15] MEDS ORDERED: Famotidine 20 MG/2 ML VIAL IVP SCH (18:00)
[2016-08-15] MEDS: Budesonide/Formoterol 160/4.5 MDI IH SCH (22:21)
[2016-08-15] MEDS: Albuterol 2.5 MG/3 ML NEBULIZER IH SCH (22:21)
[2016-08-16] MEDS ORDERED: *HR* LORazepam 2 MG/ML VIAL IVP ONE (02:45)
[2016-08-16] MEDS: Albuterol 2.5 MG/3 ML NEBULIZER IH SCH ×4 (03:14→22:35)
[2016-08-16 05:57] LABS: Basophils # 0.1 K/mcL (0.0-0.2); Basophils % 0.6 %; Eosinophils # 0.1 K/mcL (0.0-0.6); Eosinophils % 1.1 %; Hematocrit 32.2 % (35.3-44.9); Hemoglobin 10.7 g/dL (11.5-15.4); Immature Granulocytes % 1.9 % (0-4); Lymphocytes # 1.5 K/mcL (0.6-4.6); Mean Corpuscular HGB Conc 33.2 g/dL (31.6-35.5); Mean Corpuscular Volume 99.4 fL (83.0-100.0); Mean Platelet Volume 10.5 fL (9.4-12.4); Monocytes % 11.9 %; Neutrophils # 5.3 K/mcL (1.6-8.9); Platelet Count 213 K/mcL (140-400); Red Blood Count 3.24 M/mcL (3.82-4.97); Red Cell Distribution Width 13.7 % (11.5-14.5); Segmented Neutrophils % 65.5 %
[2016-08-16 06:01] LABS: INR 1.2; Prothrombin Time 13.2 Seconds (9.4-12.1)
[2016-08-16 06:10] LABS: Calcium 8.2 mg/dL (8.6-10.8); Magnesium 1.3 mg/dL (1.6-2.6); Potassium 3.9 mEq/L (3.5-4.5)
[2016-08-16 06:34] LABS: Thyroid Stimulating Hormone 1.095 mcIU/mL (0.350-4.840)
[2016-08-16] MEDS: Magnesium Oxide 400 MG TABLET PO SCH (07:59)
[2016-08-16] MEDS: *HR* Heparin 5,000 UNIT/ML VIAL SQ SCH ×2 (08:00→17:59)
[2016-08-16] MEDS: Cyanocobalamin (B-12) 1,000 MCG TABLET PO SCH (09:28)
[2016-08-16] MEDS: Magnesium Sulfate 2 GM in D5% in Water 100 ML IVPB SCH ×2 (09:29→10:39)
[2016-08-16] MEDS: 0.9 % Sodium Chloride 1,000 ML IVC SCH (09:30)
[2016-08-16] MEDS: Budesonide/Formoterol 160/4.5 MDI IH SCH ×2 (12:21→22:35)
[2016-08-16] MEDS ORDERED: Haloperidol Lactate 5 MG/ML VIAL IVP PRN (13:02)
--- NOTE | 2016-08-16 16:16 | Internal Med Progress Note ---
Date of Encounter: 08/16/16 Time of Encounter: 16:13 - Assessment and plan (1) TERRY (acute kidney injury) Current Visit: Yes Status: Acute Assessment and plan: Acute kidney injury has improved after IV fluids. Hyponatremia has resolved. Kidney function tests are currently the patient's baseline. We will avoid nephrotoxic agents. Continue with gentle hydration. Encourage by mouth intake. (2) Hypomagnesemia Current Visit: Yes Status: Acute Assessment and plan: Hypomagnesemia noted, will supplement magnesium via IV today. We will monitor magnesium levels tomorrow in a.m. Possible discharge to SNF tomorrow if stable. (3) Altered mental status Current Visit: Yes Status: Acute Assessment and plan: Patient is currently at her baseline mental status. Qualifiers: Altered mental status type: disorientation Qualified Code(s): R41.0 - Disorientation, unspecified (4) Hyponatremia Current Visit: Yes Status: Acute - Time Spent With Patient 25 - 35 minutes - Subjective Interval history: The patient was seen and examined She denies chest pain, shortness of breath. She is pleasantly confused. - Constitutional Vitals: Temp Pulse Resp BP Pulse Ox 97.3 F L 62 16 105/54 90 L 08/16/16 12:24 08/16/16 12:24 08/16/16 15:32 08/16/16 12:24 08/16/16 15:32 General appearance: Present: cooperative, A&O X 2, pleasant, underweight - Head Head exam: Present: atraumatic, normocephalic - Eye Eye exam: Present: PERRL, conjuntiva pink, sclera anicteric Pupils: Present: PERRL - Neck Neck exam general surgery: Present: supple, trachea midline. Absent: lymphadenopathy - Respiratory Respiratory exam: Present: CTAB. Absent: accessory muscle use, rales, rhonchi, wheezes - Cardiovascular Cardiovascular exam: Present: RRR, +S1, +S2. Absent: diastolic murmur, gallop, rubs, systolic murmur - GI/Abdominal GI/Abdominal exam: Present: normal bowel sounds, soft, no peritoneal signs. Absent: distended, tenderness - Extremities Exam Extremities exam: Present: warm, radial pulses palpable and symetrical. Absent : calf tenderness, cyanotic, pedal edema - Neurological Exam Neurological exam: Present: CN II-XII intact, no focal deficits. Absent: pronater drift, facial droop, speech deficit - Skin Skin exam: Present: dry, intact Internal Medicine: Result - Labs CBC & Chem 7: 08/16/16 05:41 08/16/16 05:41 Labs: Short CBC 08/16/16 Range/Units 05:41 WBC 8.1 (4.3-11.1) K/mcL Hgb 10.7 L (11.5-15.4) g/dL Hct 32.2 L (35.3-44.9) % Plt Count 213 (140-400) K/mcL Neutrophils # 5.3 (1.6-8.9) K/mcL BMP 08/16/16 05:41 Sodium 137 Potassium 3.9 Chloride 107 Carbon Dioxide 21 BUN 31 H Creatinine 1.07 Glucose 89 Calcium 8.2 L - ABG Interpretation ABG results: PT/INR, D-dimer PT 13.2 Seconds (9.4-12.1) H 08/16/16 05:41 - VTE Documentation of Mechanical Device: Intermittent pneumatic compression device Consult Discharge Plan - Plan Referrals: Slime Laguna, BLOCK SORTER [Primary Care Provider] -
[2016-08-16] MEDS: Famotidine 20 MG/2 ML VIAL IVP SCH (18:08)
[2016-08-16] MEDS: Acetaminophen 325 MG TABLET PO PRN (21:31)
[2016-08-17] MEDS: *HR* Heparin 5,000 UNIT/ML VIAL SQ SCH ×2 (06:04→18:07)
[2016-08-17 07:04] LABS: Basophils % 0.6 %; Eosinophils # 0.1 K/mcL (0.0-0.6); Eosinophils % 0.7 %; Hematocrit 31.2 % (35.3-44.9); Hemoglobin 10.1 g/dL (11.5-15.4); Immature Granulocytes % 1.3 % (0-4); Lymphocytes # 1.4 K/mcL (0.6-4.6); Lymphocytes % 19.4 %; Mean Corpuscular HGB Conc 32.4 g/dL (31.6-35.5); Mean Corpuscular Hemoglobin 32.7 pg (28.0-33.3); Mean Platelet Volume 10.2 fL (9.4-12.4); Monocytes # 0.7 K/mcL (0.0-1.3); Monocytes % 10.6 %; Neutrophils # 4.7 K/mcL (1.6-8.9); Platelet Count 225 K/mcL (140-400); Red Blood Count 3.09 M/mcL (3.82-4.97); Segmented Neutrophils % 67.4 %
[2016-08-17 07:21] LABS: BUN/Creatinine Ratio 24 (6-26); Calcium 8.1 mg/dL (8.6-10.8); Carbon Dioxide 21 mEq/L (19-29); Chloride 108 mEq/L (98-109); Glucose 85 mg/dL (70-99); Magnesium 1.9 mg/dL (1.6-2.6); Osmolality,Calculated 288 (280-300); Potassium 4.3 mEq/L (3.5-4.5); Sodium 138 mEq/L (136-145); eGFR For African Americans > 60 (> 60); eGFR For Non-African Americans > 60 (> 60)
[2016-08-17 07:24] LABS: Blood Urea Nitrogen 20 mg/dL (7-20)
[2016-08-17] MEDS: Magnesium Oxide 400 MG TABLET PO SCH (08:28)
[2016-08-17] MEDS: Cyanocobalamin (B-12) 1,000 MCG TABLET PO SCH (08:28)
[2016-08-17] MEDS: Albuterol 2.5 MG/3 ML NEBULIZER IH SCH ×2 (10:47→16:23)
[2016-08-17] MEDS: Budesonide/Formoterol 160/4.5 MDI IH SCH ×2 (10:47→20:38)
--- NOTE | 2016-08-17 10:59 | Discharge Summary ---
Date of Encounter: 08/17/16 Time of Encounter: 10:57 - Discharge Diagnosis (1) TERRY (acute kidney injury) Priority: Primary Status: Acute (2) Hypomagnesemia Priority: Secondary Status: Acute (3) Altered mental status Priority: Secondary Status: Acute Qualifiers: Altered mental status type: disorientation Qualified Code(s): R41.0 - Disorientation, unspecified (4) Hyponatremia Priority: Secondary Status: Acute - Discharge Medications Prescriptions: Cyanocobalamin (B-12) [Vitamin B12] 1,000 mcg PO DAILY #30 tablet Magnesium Oxide [Mag-Ox] 400 mg PO DAILY #30 tablet Home Medications: Citalopram [CeleXA] 20 mg PO QAM 09/14/15 [History] Esomeprazole Magnesium [Nexium] 40 mg PO QPM 09/14/15 [History] Metoprolol XL (24 HR) Succ [Toprol Xl] 50 mg PO QAM 09/14/15 [History] Simvastatin [Zocor] 20 mg PO QPM 09/14/15 [History] Albuterol Sulfate [Proair Hfa] 2 puff IH Q4-6H PRN 09/17/15 [History] Budesonide/Formoterol 160/4.5 [Symbicort 160/4.5] 2 puff IH BIDR 09/17/15 [ History] Albuterol Neb [Proventil Neb] 2.5 mg IH TID 01/29/16 [History] Magnesium Oxide [Magnesium] 400 mg PO DAILY 01/29/16 [History] Donepezil [Aricept] 10 mg PO HS 04/06/16 [History] Fluticasone Propionate Nasal [Flonase] 1 spray NS DAILY PRN 04/06/16 [History] Losartan/HCTZ [Hyzaar 50-12.5 Tablet] 1 tab PO QPM #0 04/07/16 [Rx] Cyanocobalamin (B-12) [Vitamin B12] 1,000 mcg PO DAILY #30 tablet 08/17/16 [Rx] Magnesium Oxide [Mag-Ox] 400 mg PO DAILY #30 tablet 08/17/16 [Rx] Allergies/Adverse Reactions: Allergies No Known Allergies Allergy (Verified 09/14/15 10:06) Date of admission: 08/15/16 16:32 Primary care physician: Slime Laguna CNP Consults: 08/15/16 17:06 Consult to Occupational Therapy [CONS] Routine Comment: Evaluate, develop and implement POC Consult to Physical Therapy [CONS] Routine Comment: Evaluate, develop and implement POC Consult to Sandwich Machine Operator [CONS] Routine Reason for SW Consult: placement 08/15/16 17:30 Consult to Sandwich Machine Operator [CONS] Routine Reason for SW Consult: pt lives home alone, may need ECF placement Discharging clinician: Garth Urban Anticipated date of discharge: 08/17/16 - Patient Status Disposition: Transfer SNF Condition: Fair Functional capacity at discharge: uses cane/walker Overall status at discharge: patient is progressing back to baseline - Discharge Instructions Follow Up With: Slime Laguna CNP [Primary Care Provider] - - Diet and Activity Activity: as per physical therapy Diet: advance to your usual diet Interval History: Ms. Iqbal is a 81 year old female with past medical history of atrial fibrillation, COPD, dementia, hypertension, chronic active smoker. The patient was recently discharged from this facility. She was admitted a few days ago for UTI, which was sensitive to almost all the antibiotics, she was discharged home with Levaquin. Initially, however she was offered to go to subacute rehabilitation center, but the patient's son declined the services. The patient has been weak, complaining of poor appetite for the last couple of days, is confused, denies fever, diarrhea, shortness of breath, chest pain. She was evaluated in the emergency department, workup was essentially unremarkable. She had a urinalysis which was within normal limits, head CT without IV contrast was obtained, no acute changes. Chest x-ray was essentially without change compared to prior studies. Biochemistry revealed some acute kidney injury with a BUN of 35 and creatinine of 1.21. The patient was evaluated by social media manager to the emergency department, she has been already approved for transfer to subacute rehabilitation center once stable. The patient will be admitted for hydration with IV fluids, we will obtain a consultation with physical therapy and was transferred to subacute rehabilitation center upon discharge. The patient at this moment for code. Hospital course: Ms. Iqbal is a 81 year old female Acute kidney injury has improved after IV fluids. Hyponatremia has resolved. Kidney function tests are currently the patient's baseline. Magnesium level is corrected, we will continue with by mouth supplementation upon discharge. We also gave vitamin B12 field. The patient is stable, her mental status is her baseline. At this point, the patient needs placement to SNF for discharge, we will discharge the patient to subacute rehabilitation center. Awaiting authorization prior to discharge. - Time Spent with Patient Total time spent providing and/or coordinating discharge services: Greater than 30 minutes - Constitutional Vitals: Temp Pulse Resp BP Pulse Ox 98.1 F 66 16 116/71 96 08/17/16 08:03 08/17/16 08:03 08/17/16 10:49 08/17/16 08:03 08/17/16 10:49 General appearance: Present: cooperative, A&O X 2, pleasant, underweight - Head Head exam: Present: atraumatic, normocephalic - Eye Eye exam: Present: PERRL, conjuntiva pink, sclera anicteric Pupils: Present: PERRL - Neck Neck exam general surgery: Present: supple, trachea midline. Absent: lymphadenopathy - Respiratory Respiratory exam: Present: CTAB. Absent: accessory muscle use, rales, rhonchi, wheezes - Cardiovascular Cardiovascular exam: Present: RRR, +S1, +S2. Absent: diastolic murmur, gallop, rubs, systolic murmur - GI/Abdominal GI/Abdominal exam: Present: normal bowel sounds, soft, no peritoneal signs. Absent: distended, tenderness - Extremities Exam Extremities exam: Present: warm, radial pulses palpable and symetrical. Absent : calf tenderness, cyanotic, pedal edema - Neurological Exam Neurological exam: Present: CN II-XII intact, no focal deficits. Absent: pronater drift, facial droop, speech deficit - Skin Skin exam: Present: dry, intact - VTE Documentation of Mechanical Device: Intermittent pneumatic compression device
[2016-08-17] MEDS: Famotidine 20 MG/2 ML VIAL IVP SCH (18:12)
[2016-08-17] MEDS: Acetaminophen 325 MG TABLET PO PRN (20:31)
--- NOTE | 2016-08-17 21:46 | Electrocardiograph Report ---
[facility] Test Date: 2016-08-15 Pat Name: Juani Iqbal Department: 104 Room: 2A11 Gender: F Reflexologist: SYLVIE : [id number] Requested By: Griffin Martínez Order Number: [id number] Reading MD: Kerwin Martinez MD Measurements Intervals [place] Rate: 73 P: 49 NM: 138 QRS: 11 QRSD: 121 T: 74 QT: 432 QTc: 459 Interpretive Statements SINUS RHYTHM LEFT BUNDLE BRANCH BLOCK Electronically Signed On 08-17-16 21:44:53 EST by Kerwin Martinez MD
[2016-08-18] MEDS: Albuterol 2.5 MG/3 ML NEBULIZER IH SCH ×3 (01:00→15:50)
[2016-08-18 06:12] LABS: Basophils % 0.5 %; Eosinophils # 0.1 K/mcL (0.0-0.6); Eosinophils % 1.3 %; Hematocrit 29.2 % (35.3-44.9); Hemoglobin 9.8 g/dL (11.5-15.4); Immature Granulocytes % 1.8 % (0-4); Lymphocytes # 1.7 K/mcL (0.6-4.6); Lymphocytes % 21.3 %; Mean Corpuscular HGB Conc 33.6 g/dL (31.6-35.5); Mean Corpuscular Hemoglobin 33.4 pg (28.0-33.3); Mean Corpuscular Volume 99.7 fL (83.0-100.0); Monocytes # 0.9 K/mcL (0.0-1.3); Monocytes % 10.9 %; Platelet Count 230 K/mcL (140-400); Red Blood Count 2.93 M/mcL (3.82-4.97); Red Cell Distribution Width 14.1 % (11.5-14.5); Segmented Neutrophils % 64.2 %
[2016-08-18] MEDS: *HR* Heparin 5,000 UNIT/ML VIAL SQ SCH (06:18)
[2016-08-18 06:25] LABS: BUN/Creatinine Ratio 30 (6-26); Blood Urea Nitrogen 21 mg/dL (7-20); Calcium 8.7 mg/dL (8.6-10.8); Carbon Dioxide 21 mEq/L (19-29); Chloride 108 mEq/L (98-109); Glucose 86 mg/dL (70-99); Osmolality,Calculated 286 (280-300); Potassium 4.9 mEq/L (3.5-4.5); Sodium 137 mEq/L (136-145); eGFR For African Americans > 60 (> 60); eGFR For Non-African Americans > 60 (> 60)
[2016-08-18 07:30] VITALS: BP 127/73
--- NOTE | 2016-08-18 08:03 | Internal Med Progress Note ---
<Tyler Lai - Last Filed: 08/18/16 13:32> Date of Encounter: 08/18/16 Time of Encounter: 08:03 - Assessment and plan (1) TERRY (acute kidney injury) Current Visit: Yes Status: Acute Assessment and plan: Likely 2/2 dehydration, IV fluid given, now normal, renal function stable, going to ECF today. (2) Altered mental status Current Visit: Yes Status: Acute Assessment and plan: She has underlying dementia, it was initially worse but it was 2/2 dehydration, now her mentation is back to baseline. Qualifiers: Altered mental status type: disorientation Qualified Code(s): R41.0 - Disorientation, unspecified (3) Hypomagnesemia Current Visit: Yes Status: Acute Assessment and plan: Supplemented and fixed. (4) DVT prophylaxis Current Visit: Yes Status: Acute Assessment and plan: Heparin SQ BID. - Subjective Interval history: Pt seen and examined, she states that she has no complaints or pain this AM. - Constitutional Vitals: Temp Pulse Resp BP Pulse Ox 98.0 F 74 18 127/73 97 08/18/16 07:28 08/18/16 07:28 08/18/16 07:28 08/18/16 07:28 08/18/16 07:28 General appearance: Present: cooperative, A&O X 2, pleasant, underweight - Head Head exam: Present: atraumatic, normocephalic - Eye Eye exam: Present: PERRL, conjuntiva pink, sclera anicteric Pupils: Present: PERRL - Neck Neck exam general surgery: Present: supple, trachea midline. Absent: lymphadenopathy - Respiratory Respiratory exam: Present: CTAB. Absent: accessory muscle use, rales, rhonchi, wheezes - Cardiovascular Cardiovascular exam: Present: RRR, +S1, +S2. Absent: diastolic murmur, gallop, rubs, systolic murmur - GI/Abdominal GI/Abdominal exam: Present: normal bowel sounds, soft, no peritoneal signs. Absent: distended, tenderness - Extremities Exam Extremities exam: Present: warm, radial pulses palpable and symetrical. Absent : calf tenderness, cyanotic, pedal edema - Neurological Exam Neurological exam: Present: CN II-XII intact, oriented X3, no focal deficits. Absent: pronater drift, facial droop, speech deficit - Skin Skin exam: Present: dry, intact Internal Medicine: Result - Labs CBC & Chem 7: 08/18/16 05:41 08/18/16 05:41 Labs: Short CBC 08/18/16 Range/Units 05:41 WBC 7.8 (4.3-11.1) K/mcL Hgb 9.8 L (11.5-15.4) g/dL Hct 29.2 L (35.3-44.9) % Plt Count 230 (140-400) K/mcL Neutrophils # 5.0 (1.6-8.9) K/mcL BMP 08/18/16 05:41 Sodium 137 Potassium 4.9 H Chloride 108 Carbon Dioxide 21 BUN 21 H Creatinine 0.70 Glucose 86 Calcium 8.7 - ABG Interpretation ABG results: PT/INR, D-dimer PT 13.2 Seconds (9.4-12.1) H 08/16/16 05:41 - VTE Documentation of Mechanical Device: Intermittent pneumatic compression device Consult Discharge Plan - Plan Referrals: Slime Laguna, MARINE FIRER [Primary Care Provider] - Prescriptions: Cyanocobalamin (B-12) [Vitamin B12] 1,000 mcg PO DAILY #30 tablet Magnesium Oxide [Mag-Ox] 400 mg PO DAILY #30 tablet <Garth Urban - Last Filed: 08/18/16 16:52> Date of Encounter: 08/18/16 - Assessment and plan (1) TERRY (acute kidney injury) Current Visit: Yes Status: Acute (2) Hypomagnesemia Current Visit: Yes Status: Acute (3) Altered mental status Current Visit: Yes Status: Acute Qualifiers: Altered mental status type: disorientation Qualified Code(s): R41.0 - Disorientation, unspecified (4) Hyponatremia Current Visit: Yes Status: Acute - Constitutional Vitals: Temp Pulse Resp BP Pulse Ox 98.0 F 74 18 127/73 97 08/18/16 08:35 08/18/16 08:35 08/18/16 15:51 08/18/16 07:28 08/18/16 15:51 Internal Medicine: Result - Labs CBC & Chem 7: 08/18/16 05:41 08/18/16 05:41 Labs: Short CBC 08/18/16 Range/Units 05:41 WBC 7.8 (4.3-11.1) K/mcL Hgb 9.8 L (11.5-15.4) g/dL Hct 29.2 L (35.3-44.9) % Plt Count 230 (140-400) K/mcL Neutrophils # 5.0 (1.6-8.9) K/mcL BMP 08/18/16 05:41 Sodium 137 Potassium 4.9 H Chloride 108 Carbon Dioxide 21 BUN 21 H Creatinine 0.70 Glucose 86 Calcium 8.7 - ABG Interpretation ABG results: PT/INR, D-dimer PT 13.2 Seconds (9.4-12.1) H 08/16/16 05:41 - Attending Attestation I agree with the physical examination findings, assessment and plan documented by the resident Dr. Tyler Lai. I examined the patient independently. Essentially the patient is stable, hypomagnesemia and acute kidney injury have been corrected. The patient was discharged yesterday, however is awaiting for placement into a subacute rehabilitation center.
[2016-08-18] MEDS: Magnesium Oxide 400 MG TABLET PO SCH (08:31)
[2016-08-18] MEDS: Cyanocobalamin (B-12) 1,000 MCG TABLET PO SCH (08:31)
[2016-08-18] MEDS: Budesonide/Formoterol 160/4.5 MDI IH SCH (10:13)
--- NOTE | 2016-08-18 16:00 | Physician Discharge Referral ---
ExtendedCare Referral Info Transfer To: ECF Provider in Charge: Dr. Urban Provider in Charge after Transfer: PCP Institutional Level of Care: Skilled - Diagnosis (1) TERRY (acute kidney injury) Priority: Primary Status: Acute (2) Altered mental status Status: Acute (3) Hypomagnesemia Status: Acute (4) DVT prophylaxis Status: Acute - Transfer Medications Prescriptions: Cyanocobalamin (B-12) [Vitamin B12] 1,000 mcg PO DAILY #30 tablet Magnesium Oxide [Mag-Ox] 400 mg PO DAILY #30 tablet Home Medications: Citalopram [CeleXA] 20 mg PO QAM 09/14/15 [History] Esomeprazole Magnesium [Nexium] 40 mg PO QPM 09/14/15 [History] Metoprolol XL (24 HR) Succ [Toprol Xl] 50 mg PO QAM 09/14/15 [History] Simvastatin [Zocor] 20 mg PO QPM 09/14/15 [History] Albuterol Sulfate [Proair Hfa] 2 puff IH Q4-6H PRN 09/17/15 [History] Budesonide/Formoterol 160/4.5 [Symbicort 160/4.5] 2 puff IH BIDR 09/17/15 [ History] Albuterol Neb [Proventil Neb] 2.5 mg IH TID 01/29/16 [History] Magnesium Oxide [Magnesium] 400 mg PO DAILY 01/29/16 [History] Donepezil [Aricept] 10 mg PO HS 04/06/16 [History] Fluticasone Propionate Nasal [Flonase] 1 spray NS DAILY PRN 04/06/16 [History] Losartan/HCTZ [Hyzaar 50-12.5 Tablet] 1 tab PO QPM #0 04/07/16 [Rx] Cyanocobalamin (B-12) [Vitamin B12] 1,000 mcg PO DAILY #30 tablet 08/17/16 [Rx] Magnesium Oxide [Mag-Ox] 400 mg PO DAILY #30 tablet 08/17/16 [Rx] Allergies/Adverse Reactions: Allergies No Known Allergies Allergy (Verified 09/14/15 10:06) - Respiratory Orders Oxygen / L per min (2) Smoking Cessation: Smoking cessation has been advised. For more information, call the [employer] Tobacco Quit Line at 5-738-FQHX-NOW. - Ancillary Orders May use pressure relief devices daily prn, May go on MAURA w/family/respon green party w /meds at nurse discretion PRN, May consult with Dentist, Foundation Engineer, Financial Systems Analyst PRN - Advance Directives Code Status: Full Code - Mobility Orders Ambulate (up with assistance, fall precaution) - Rehabiliation Orders Rehab Potential: Fair Rehab Orders: ROM Exercises, Evaluation for Physical Therapy, Evaluation for Occupational Therapy - Treatments Skin tear care topically daily PRN per policy, May check for fecal impaction rectally daily PRN, Fleet enema rectally every other day PRN cleansing purposes - Diet Orders Mechanical Soft (mechanically alteted diet ground meat with ensure plus TID) CERTIFICATION: I certify that the transfer of the above named patient to an Extended Care Facility is necessary for the continuing treatment of the diagnosis listed. The above information is true and accurate reflection of patient's current condition. Confidential - Redisclosure prohibited without a patient's written consent.
[2016-08-18] MEDS ORDERED: Famotidine 20 MG TABLET PO SCH (18:00)
== END 2016-08-18 17:30 ==
LOC: 2ANU 10:07 → EMEROO 10:07 → SUATTDRO 16:32 → 2ANU 17:02
PROVIDERS: ADMIT Nurse Practitioner Acute Care; ATTEND Internal Medicine

== ENCOUNTER 2017-11-15 10:32 | Inpatient (IN) ==
--- NOTE | 2017-11-15 10:49 | Emergency Department Note ---
Disposition Clinical Impression: Shortness of breath, Hematemesis with nausea Chest pain Qualifiers: Chest pain type: unspecified Qualified Code(s): R07.9 - Chest pain, unspecified Disposition: Admitted As Inpatient Condition: Fair Time of Disposition: 10:51 General Adult HPI - General Chief complaint: ED Nausea/Vomiting/Diarrhea Stated complaint: NV Time Seen by Provider: 11/15/17 10:35 Source: patient, EMS Mode of arrival: EMS Limitations: no limitations Nursing Notes Reviewed: Yes Vital Signs Reviewed: Yes - History of Present Illness HPI Narrative: 82-year-old female is brought by EMS from home for evaluation of substernal chest pain, nausea, one episode of hematemesis, shortness of breath, and a productive cough. The patient states that symptoms began 5 days ago and have continued since. She denies any associated fevers or chills. She denies any associated abdominal pain. She denies any hematochezia or melena. She denies any radiation of the substernal chest pain as well as any aggravating or alleviating factors. Onset (ago): day(s) (5) Location: chest Radiation: non-radiation Quality: aching Consistency: constant Improves with: nothing Worsens with: nothing Associated symptoms: Reports: cough, nausea/vomiting, shortness of breath. Denies: fever/chills - Related Data Home Medications Medication Instructions Recorded Confirmed Citalopram [CeleXA] 20 mg PO QAM 09/14/15 08/15/16 Esomeprazole Magnesium [Nexium] 40 mg PO QPM 09/14/15 08/15/16 Metoprolol XL (24 HR) Succ [Toprol 50 mg PO QAM 09/14/15 08/15/16 Xl] Simvastatin [Zocor] 20 mg PO QPM 09/14/15 08/15/16 Albuterol Sulfate [Proair Hfa] 2 puff IH Q4-6H PRN 09/17/15 08/15/16 Budesonide/Formoterol 160/4.5 2 puff IH BIDR 09/17/15 08/15/16 [Symbicort 160/4.5] Albuterol Neb [Proventil Neb] 2.5 mg IH TID 01/29/16 08/15/16 Magnesium Oxide [Magnesium] 400 mg PO DAILY 01/29/16 08/15/16 Donepezil [Aricept] 10 mg PO HS 04/06/16 08/15/16 Fluticasone Propionate Nasal 1 spray NS DAILY PRN 04/06/16 08/15/16 [Flonase] Previous Rx's Medication Instructions Recorded Losartan/HCTZ [Hyzaar 50-12.5 1 tab PO QPM #0 04/07/16 Tablet] Cyanocobalamin (B-12) [Vitamin B12] 1,000 mcg PO DAILY #30 tablet 08/17/16 Magnesium Oxide [Mag-Ox] 400 mg PO DAILY #30 tablet 08/17/16 Allergies Allergy/AdvReac Type Severity Reaction Status Date / Time No Known Allergies Allergy Verified 09/14/15 10:06 All systems ED: reviewed and negative except as stated. Constitutional: Denies: fever, chills, weakness, weight change Eyes: Denies: eye pain, eye discharge, vision change ENT ED: Denies: ear pain, throat pain, dental pain, hearing loss, epistaxis, congestion, dysphagia Cardiovascular: Reports: as per HPI, chest pain. Denies: palpitations, dyspnea on exertion, edema, syncope Respiratory: Reports: as per HPI, cough, dyspnea, sputum production. Denies: wheezes, hemoptysis, stridor Gastrointestinal: Reports: as per HPI, nausea, vomiting (1 episode of bright red vomiting). Denies: abdominal pain, diarrhea, constipation, hematemesis, melena, hematochezia Genitourinary: Denies: dysuria, frequency, hematuria, discharge Musculoskeletal: Denies: back pain, neck pain, arthralgia, myalgia Integumentary: Denies: rash, abrasion, lesions Neurological: Denies: headache, weakness, numbness, paresthesias, confusion, abnormal gait, vertigo Psychiatric: Denies: anxiety, depression, suicidal thoughts, homicidal thoughts , auditory hallucinations, visual hallucinations Endocrine: Denies: fatigue Hematological/Lymphatic: Denies: easy bleeding, easy bruising Allergic/Immunologic: Denies: facial swelling, urticaria Past Medical History - Past Medical History Attestation: Yes The following information was validated with the patient. Source: patient, nursing notes reviewed Medical history: Reports: atrial fibrillation, COPD, dementia, hyperlipidemia, hypertension, other Surgical history: Reports: orthopedic, other, other Psychiatric history: Reports: no psych history - Social History Smoking Status: Current every day smoker Smokeless Tobacco Status: No Alcohol use: Reports: none Drug use: Reports: none Physical Exam - General Limitations: no limitations General appearance: alert, in no apparent distress - Head Head exam: atraumatic, normocephalic, normal inspection - Eye Eye exam: Present: normal appearance, PERRL, EOMI. Absent: nystagmus - ENT ENT exam: mucous membranes moist - Neck Neck exam: Present: normal inspection, full ROM, trachea midline - Chest Chest inspection: Present: normal inspection, symmetric chest wall rise - Respiratory Respiratory exam: Present: normal lung sounds bilaterally. Absent: respiratory distress, wheezes, stridor, accessory muscle use, prolonged expiratory phase - Cardiovascular Cardiovascular exam: Present: regular rate, normal rhythm, normal heart sounds - Abdominal Exam Abdominal exam: Present: soft, Non-Tender, normal bowel sounds - Extremities Exam Extremities exam: Present: normal inspection, full ROM. Absent: tenderness, pedal edema - Neurological Exam Neurological exam: Present: alert, oriented X3 - Psychiatric Psychiatric exam: Present: normal affect, normal mood - Skin Skin exam: Present: warm, dry, intact, normal color. Absent: rash Medical Decision Making - Medical Records Medical records reviewed: Yes I reviewed the patient's medical records. Allison - Allison Situation: Demographics, MOA Background: Presenting Complaint, Relevant PMH, Meds, & Allergies Assessment: Vital Signs, Course and respsone to treatment, Exam Concerns, Patient/Family Expectation, Pertinant Lab Results, Outstanding Labs Recommendation: Barrier(s) to disposition, Recommendation based on pending studies, treatments, or consults SJude Report Given to: Dr. Helen Cooper Repor Time: 10:50
--- NOTE | 2017-11-15 11:10 | Emergency Department Note ---
Disposition Clinical Impression: Shortness of breath, Hematemesis with nausea, Kidney mass Chest pain Qualifiers: Chest pain type: unspecified Qualified Code(s): R07.9 - Chest pain, unspecified Pneumonia Qualifiers: Pneumonia type: due to unspecified organism Laterality: right Lung location: unspecified part of lung Qualified Code(s): J18.9 - Pneumonia, unspecified organism Disposition: Admitted As Inpatient Condition: Fair Referrals: Slime Laguna, [employer]ER [Primary Care Provider] - Forms: ED Satisfaction Letter Time of Disposition: 12:52 General Adult HPI - General Chief complaint: ED Nausea/Vomiting/Diarrhea Stated complaint: NV Time Seen by Provider: 11/15/17 10:35 Source: patient, EMS Mode of arrival: EMS Limitations: no limitations - History of Present Illness Location: chest Pain Scale: 0 Quality: aching Improves with: nothing Worsens with: nothing Associated symptoms: Reports: cough, nausea/vomiting, shortness of breath. Denies: fever/chills - Related Data Home Medications Medication Instructions Recorded Confirmed Citalopram [CeleXA] 20 mg PO QAM 09/14/15 08/15/16 Esomeprazole Magnesium [Nexium] 40 mg PO QPM 09/14/15 08/15/16 Metoprolol XL (24 HR) Succ [Toprol 50 mg PO QAM 09/14/15 08/15/16 Xl] Simvastatin [Zocor] 20 mg PO QPM 09/14/15 08/15/16 Albuterol Sulfate [Proair Hfa] 2 puff IH Q4-6H PRN 09/17/15 08/15/16 Budesonide/Formoterol 160/4.5 2 puff IH BIDR 09/17/15 08/15/16 [Symbicort 160/4.5] Albuterol Neb [Proventil Neb] 2.5 mg IH TID 01/29/16 08/15/16 Magnesium Oxide [Magnesium] 400 mg PO DAILY 01/29/16 08/15/16 Donepezil [Aricept] 10 mg PO HS 04/06/16 08/15/16 Fluticasone Propionate Nasal 1 spray NS DAILY PRN 04/06/16 08/15/16 [Flonase] Previous Rx's Medication Instructions Recorded Losartan/HCTZ [Hyzaar 50-12.5 1 tab PO QPM #0 04/07/16 Tablet] Cyanocobalamin (B-12) [Vitamin B12] 1,000 mcg PO DAILY #30 tablet 08/17/16 Magnesium Oxide [Mag-Ox] 400 mg PO DAILY #30 tablet 08/17/16 Allergies Allergy/AdvReac Type Severity Reaction Status Date / Time No Known Allergies Allergy Verified 09/14/15 10:06 Constitutional: Denies: fever, chills, weakness, weight change Eyes: Denies: eye pain, eye discharge, vision change ENT ED: Denies: ear pain, throat pain, dental pain, hearing loss, epistaxis, congestion, dysphagia Cardiovascular: Reports: as per HPI, chest pain. Denies: palpitations, dyspnea on exertion, edema, syncope Respiratory: Reports: as per HPI, cough, dyspnea, sputum production. Denies: wheezes, hemoptysis, stridor Gastrointestinal: Reports: as per HPI, nausea, vomiting (1 episode of bright red vomiting). Denies: abdominal pain, diarrhea, constipation, hematemesis, melena, hematochezia Genitourinary: Denies: dysuria, frequency, hematuria, discharge Musculoskeletal: Denies: back pain, neck pain, arthralgia, myalgia Integumentary: Denies: rash, abrasion, lesions Neurological: Denies: headache, weakness, numbness, paresthesias, confusion, abnormal gait, vertigo Psychiatric: Denies: anxiety, depression, suicidal thoughts, homicidal thoughts , auditory hallucinations, visual hallucinations Endocrine: Denies: fatigue Hematological/Lymphatic: Denies: easy bleeding, easy bruising Allergic/Immunologic: Denies: facial swelling, urticaria Past Medical History - Past Medical History Medical history: Reports: atrial fibrillation, COPD, dementia, hyperlipidemia, hypertension, other Surgical history: Reports: orthopedic, other, other Psychiatric history: Reports: no psych history - Social History Smoking Status: Current every day smoker Smokeless Tobacco Status: No Alcohol use: Reports: none Drug use: Reports: none Physical Exam - General Limitations: no limitations General appearance: alert, in no apparent distress Course - Reevaluation(s) Reevaluation #1: 82-year-old female who comes in apparently had one episode of vomiting of blood. Hemoglobin is stable. Workup included chest x-ray CT of the abdomen shows a necrotic pneumonia possibly a mass and also a mass in the kidney. Patient will be admitted for further evaluation treatment treatment of the pneumonia. Time: 12:53 - Consultations Consultation #1: Discussed with , admit. Time: 12:53 Vital Signs Temperature 96.9 F L 11/15/17 10:47 Pulse Rate 91 11/15/17 10:47 Respiratory Rate 15 11/15/17 10:47 Blood Pressure 113/85 11/15/17 10:47 O2 Sat by Pulse Oximetry 97 11/15/17 10:47 Temperature 96.9 F L 11/15/17 10:47 Pulse Rate 79 11/15/17 11:47 Respiratory Rate 15 11/15/17 11:47 Blood Pressure 113/85 11/15/17 11:47 O2 Sat by Pulse Oximetry 99 11/15/17 11:47 Oxygen Delivery Oxygen Delivery Aerosol Mask Medical Decision Making - Lab Data Lab results reviewed: Yes I reviewed the patient's lab results. Result diagrams: 11/15/17 11:22 11/15/17 11:22 Lab Results 11/15/17 11/15/17 11/15/17 Range/Units 11:22 11:22 11:22 WBC 9.8 (4.3-11.1) K/mcL RBC 4.14 (3.82-4.97) M/mcL Hgb 13.9 (11.5-15.4) g/dL Hct 42.6 (35.3-44.9) % MCV 102.9 H (83.0-100.0) fL MCH 33.6 H (28.0-33.3) pg MCHC 32.6 (31.6-35.5) g/dL RDW 13.5 (11.5-14.5) % Plt Count 319 (140-400) K/mcL MPV 9.1 L (9.4-12.4) fL Immature Gran % 0.5 (0-4) % Seg Neutrophils % 82.7 % Lymphocytes % 10.2 % Monocytes % 6.0 % Eosinophils % 0.2 % Basophils % 0.4 % Neutrophils # 8.1 (1.6-8.9) K/mcL Lymphocytes # 1.0 (0.6-4.6) K/mcL Monocytes # 0.6 (0.0-1.3) K/mcL Eosinophils # 0.0 (0.0-0.6) K/mcL Basophils # 0.0 (0.0-0.2) K/mcL Immature Plt Fraction 1.3 (1.1-6.1) % PT 11.7 (9.4-12.1) Seconds INR 1.1 APTT 28.8 (26.0-36.0) Seconds Sodium 136 (136-145) mEq/L Potassium 4.4 (3.5-5.1) mEq/L Chloride 100 (98-107) mEq/L Carbon Dioxide 27 (23-29) mEq/L BUN 15 (8-23) mg/dL Creatinine 0.68 (0.60-1.20) mg/dL Est GFR ( Amer) > 60 (> 60) Est GFR (Non-Af Amer) > 60 (> 60) BUN/Creatinine Ratio 22 (6-26) Glucose 94 (70-105) mg/dL Calculated Osmolality 283 (280-300) Lactic Acid (0.5-2.2) mmol/L Calcium 10.4 H (8.6-10.3) mg/dL Total Bilirubin 0.5 (0.3-1.0) mg/dL Direct Bilirubin 0.3 H (0.0-0.2) mg/dL Indirect Bilirubin 0.2 (0.0-1.2) mg/dL AST 23 (13-39) Units/L ALT 7 (7-52) Units/L Alkaline Phosphatase 89 (34-104) Units/L Troponin I < 0.03 (< 0.04) ng/mL Serum Total Protein 6.7 (6.4-8.9) g/dL Albumin 2.7 L (3.5-5.7) g/dL Globulin 4.0 H (2.4-3.5) g/dL Albumin/Globulin Ratio 0.7 L (1.1-2.2) Amylase 38 (29-103) Units/L Lipase 18 (11-82) Units/L Blood Type Antibody Screen 11/15/17 11/15/17 Range/Units 11:22 11:22 WBC (4.3-11.1) K/mcL RBC (3.82-4.97) M/mcL Hgb (11.5-15.4) g/dL Hct (35.3-44.9) % MCV (83.0-100.0) fL MCH (28.0-33.3) pg MCHC (31.6-35.5) g/dL RDW (11.5-14.5) % Plt Count (140-400) K/mcL MPV (9.4-12.4) fL Immature Gran % (0-4) % Seg Neutrophils % % Lymphocytes % % Monocytes % % Eosinophils % % Basophils % % Neutrophils # (1.6-8.9) K/mcL Lymphocytes # (0.6-4.6) K/mcL Monocytes # (0.0-1.3) K/mcL Eosinophils # (0.0-0.6) K/mcL Basophils # (0.0-0.2) K/mcL Immature Plt Fraction (1.1-6.1) % PT (9.4-12.1) Seconds INR APTT (26.0-36.0) Seconds Sodium (136-145) mEq/L Potassium (3.5-5.1) mEq/L Chloride (98-107) mEq/L Carbon Dioxide (23-29) mEq/L BUN (8-23) mg/dL Creatinine (0.60-1.20) mg/dL Est GFR ( Amer) (> 60) Est GFR (Non-Af Amer) (> 60) BUN/Creatinine Ratio (6-26) Glucose (70-105) mg/dL Calculated Osmolality (280-300) Lactic Acid 2.1 (0.5-2.2) mmol/L Calcium (8.6-10.3) mg/dL Total Bilirubin (0.3-1.0) mg/dL Direct Bilirubin (0.0-0.2) mg/dL Indirect Bilirubin (0.0-1.2) mg/dL AST (13-39) Units/L ALT (7-52) Units/L Alkaline Phosphatase (34-104) Units/L Troponin I (< 0.04) ng/mL Serum Total Protein (6.4-8.9) g/dL Albumin (3.5-5.7) g/dL Globulin (2.4-3.5) g/dL Albumin/Globulin Ratio (1.1-2.2) Amylase (29-103) Units/L Lipase (11-82) Units/L Blood Type A POSITIVE Antibody Screen NEGATIVE - Radiology Data Radiology results reviewed: Yes I reviewed the patient's radiology results. Chest X-Ray 11/15/17 10:42 IMPRESSION: Rotation limits the exam. Severe emphysema. Mild right perihilar patchy opacities which may represent acute pneumonia. Stable chronic mild right pleural effusion and probable associated atelectasis. D/ / 11/15/2017 11:50:06 Turner Vital MD / dawna Interpreting Provider: Turner Vital MD Abdomen/Pelvis CT 11/15/17 11:04 IMPRESSION: 1. Right lower lobe dense consolidation with internal gas foci which may represent possible necrotic pneumonia. A necrotic obscure underlying mass cannot be excluded. Mild right pleural effusion. 2. 5.4 cm right inferior pole cystic mass with septation calcifications. This is considered indeterminate is and follow-up evaluation with CT abdomen with/without contrast is recommended. 3. No acute abdominal/pelvic abnormality. 4. Stable bilateral adrenal lipid rich adenomas versus nodular hyperplasia. D/ / Turner Vital MD / Turner Vital MD Interpreting Provider: Turner Vital MD - EKG Data EKG #1 EKG attestation: Yes I reviewed and interpreted this EKG. EKG shows normal: sinus rhythm Rate: normal Rhythm: NSR [place]/QRS: IVCD When compared to previous EKG there are: no significant changes (08/15/2016) Interpretation: no acute changes Attestation Statement - Attestation Attestation: For this encounter, I have reviewed the SELF PAY REPRESENTATIVE or PA documentation, treatment plan, and medical decision making; and I have had face to face time with this patient. 82-year-old comes and has been having some nausea vomiting and not able to eat anything. Also has been a little bit confused and has some shortness of breath has a history COPD. Family members state that she is been confused and usually when that happened she has a UTI. Physical examination her lungs are diminished abdomen she has no tenderness denies any pain. We will obtain labs of imaging patient will likely require admission.
[2017-11-15] MEDS ORDERED: Ipratropium/Albuterol Neb 3 ML IH ONE (11:13)
[2017-11-15] MEDS ORDERED: 0.9 % Sodium Chloride 500 ML IVC ONE (11:14)
[2017-11-15 11:33] LABS: Basophils % 0.4 %; Eosinophils % 0.2 %; Hematocrit 42.6 % (35.3-44.9); Hemoglobin 13.9 g/dL (11.5-15.4); Immature Granulocytes % 0.5 % (0-4); Immature Platelets 1.3 % (1.1-6.1); Lymphocytes % 10.2 %; Mean Corpuscular HGB Conc 32.6 g/dL (31.6-35.5); Mean Corpuscular Hemoglobin 33.6 pg (28.0-33.3); Mean Corpuscular Volume 102.9 fL (83.0-100.0); Mean Platelet Volume 9.1 fL (9.4-12.4); Monocytes # 0.6 K/mcL (0.0-1.3); Neutrophils # 8.1 K/mcL (1.6-8.9); Platelet Count 319 K/mcL (140-400); Red Blood Count 4.14 M/mcL (3.82-4.97); Red Cell Distribution Width 13.5 % (11.5-14.5); Segmented Neutrophils % 82.7 %
[2017-11-15 11:47] LABS: INR 1.1; Prothrombin Time 11.7 Seconds (9.4-12.1)
[2017-11-15 11:49] LABS: Activated Partial Thrombo Time 28.8 Seconds (26.0-36.0)
[2017-11-15] MEDS ORDERED: Piperacillin/Tazobactam 3.375 GM in 0.9 % Sodium Chloride Mini Bag 100 ML IVPB ONE (11:59)
[2017-11-15 12:05] LABS: Troponin I < 0.03 ng/mL (< 0.04)
[2017-11-15 12:06] LABS: Alanine Aminotransferase 7 Units/L (7-52); Albumin 2.7 g/dL (3.5-5.7); Albumin/Globulin Ratio 0.7 (1.1-2.2); Alkaline Phosphatase 89 Units/L (34-104); Amylase 38 Units/L (29-103); Aspartate Amino Transferase 23 Units/L (13-39); BUN/Creatinine Ratio 22 (6-26); Bilirubin,Direct 0.3 mg/dL (0.0-0.2); Bilirubin,Indirect 0.2 mg/dL (0.0-1.2); Bilirubin,Total 0.5 mg/dL (0.3-1.0); Blood Urea Nitrogen 15 mg/dL (8-23); Calcium 10.4 mg/dL (8.6-10.3); Carbon Dioxide 27 mEq/L (23-29); Chloride 100 mEq/L (98-107); Glucose 94 mg/dL (70-105); Lipase 18 Units/L (11-82); Osmolality,Calculated 283 (280-300); Potassium 4.4 mEq/L (3.5-5.1); Sodium 136 mEq/L (136-145); Total Protein 6.7 g/dL (6.4-8.9); eGFR For African Americans > 60 (> 60); eGFR For Non-African Americans > 60 (> 60)
[2017-11-15] MEDS ORDERED: Pantoprazole 40 MG VIAL IVP ONE (12:43)
[2017-11-15] MEDS: 0.9 % Sodium Chloride 1,000 ML IVC SCH (13:32)
--- NOTE | 2017-11-15 13:54 | Internal Med History&Physical ---
Date of Encounter: 11/15/17 Time of Encounter: 13:45 Internal Medicine - H&P: HPI Chief complaint: SOB Admitted From: Home Plans for Post Hospital Care: Home History of present illness: Ms. Iqbal is a 82 year old female who has COPD hypertension, cachectic presenting emergency room for shortness of breath for 1 week. Patient lives at home with his son, she does report that she lost 25 pounds over a year. She is very cachectic, but able to get up withf a cane. She has been coughing for over last week, with white mucus profusely. She become more shortness of breath over last few days. She also compress of chills. In the emergency room she was found necrotizing pneumonia and a renal mass. she is septic. T 96.9, heart rate 91, otherwise unremarkable. She coughed up some blood, not sure vomitted blood times one, so she had a CAT of abdomen which showed Right lower lobe dense consolidation with internal gas foci which may represent possible necrotic pneumonia. 5.4 cm right inferior pole cystic mass with septation calcifications. 1. pneumonia, we will do a chest CT scan continue IV Zosyn 2 renal mass will do MRI. 3. cachexia weight loss, will check TSH 4 I discussed the code status was her she wants to be full code Past Med Surg Social Fam HX - Past Medical History Medical history: atrial fibrillation, COPD, dementia, hyperlipidemia, hypertension, other Psychiatric history: no psych history - Past Surgical History Surgical History: orthopedic, other, other - Social History Smoking Status: Current every day smoker Smokeless Tobacco Status: No Alcohol use: none Drug use: none - Family History Mother Living Status: Hx Family Cardiac Disorders: Yes (HTN) Hx Family Cancer: Yes Father Living Status: Hx Family Cardiac Disorders: Yes (hypertension) Hx Family Respiratory Disorders: Yes (TB) Internal Medicine - H&P: Meds Citalopram [CeleXA] 20 mg PO QAM 09/14/15 [History] Esomeprazole Magnesium [Nexium] 40 mg PO QPM 09/14/15 [History] Metoprolol XL (24 HR) Succ [Toprol Xl] 50 mg PO QAM 09/14/15 [History] Simvastatin [Zocor] 20 mg PO QPM 09/14/15 [History] Albuterol Sulfate [Proair Hfa] 2 puff IH Q4-6H PRN 09/17/15 [History] Budesonide/Formoterol 160/4.5 [Symbicort 160/4.5] 2 puff IH BIDR 09/17/15 [ History] Albuterol Neb [Proventil Neb] 2.5 mg IH TID 01/29/16 [History] Donepezil [Aricept] 10 mg PO HS 04/06/16 [History] Fluticasone Propionate Nasal [Flonase] 1 spray NS DAILY PRN 04/06/16 [History] Losartan/HCTZ [Hyzaar 50-12.5 Tablet] 1 tab PO QPM #0 04/07/16 [Rx] Cyanocobalamin (B-12) [Vitamin B12] 1,000 mcg PO DAILY #30 tablet 08/17/16 [Rx] Magnesium Oxide [Mag-Ox] 400 mg PO DAILY #30 tablet 08/17/16 [Rx] HYDROcodone/Acet 5/325 mg [[place] 5-325 mg] 0.5 - 1 tab PO BID PRN 11/15/17 [ History] 3 Allergy/AdvReac Type Severity Reaction Status Date / Time No Known Allergies Allergy Verified 11/15/17 13:15 All Systems PM: A 10-system review of systems was performed and is negative for pertinent findings except as documented above in the HPI. - Constitutional Vitals: Temp Pulse Resp BP Pulse Ox 96.9 F L 79 15 113/85 99 11/15/17 10:47 11/15/17 11:47 11/15/17 11:47 11/15/17 11:47 11/15/17 11:47 General appearance: Present: A&O X 3, loss of weight Exam: CONSTITUTIONAL: Patient appears as an age appropriate female well developed, in no acute distress. EYES Clear sclerae, bilateral pupils are equal, reactive to light and accommodation. Extraocular movements are intact RESPIRATORY: No accessory muscle use, right crackles/rales. CARDIOVASCULAR: Regular heart rate, normal S1 and S2, no murmurs GASTROINTESTINAL: bowel sounds present, soft, no tenderness. No hepatosplenomegaly. No bilateral CVA tenderness MUSCULOSKELETAL: Joints in normal range of motion, no clubbing, no edema, no cyanosis. Bilateral peripheral pulses 2+ LYMPHATIC no lymphadenopathy in neck, groin and axilla bilaterally, no thyromegaly. NEUROLOGIC: CN II to XII are grossly intact, no focal neurological deficit. Deep tendon reflexes 2+ bilaterally. Normal light touch sensation to upper and lower extremity PSYCHIATRIC: Oriented x3, with good insight, mood is euthymic. No hallucinations or delusions. SKIN: Skin warm and dry, no rashes, no open wound. Internal Med - H&P Results - Labs CBC & Chem 7: 11/15/17 11:22 11/15/17 11:22 - Assessment and plan (1) Pneumonia Current Visit: Yes Status: Acute Assessment and plan: We will continue IV Zosyn, check speech therapy to evaluate her aspiration chest CT scan rule out a malignancy Qualifiers: Pneumonia type: due to unspecified organism Laterality: right Lung location: unspecified part of lung Qualified Code(s): J18.9 - Pneumonia, unspecified organism (2) Cachexia Current Visit: Yes Status: Acute Assessment and plan: Consult to nutrition check a TSH (3) Kidney mass Current Visit: Yes Status: Acute Assessment and plan: Renal mass will check MRI (4) COPD (chronic obstructive pulmonary disease) with emphysema Current Visit: Yes Status: Chronic Assessment and plan: COPD no signs for exacerbation Qualifiers: Emphysema type: panlobular Qualified Code(s): J43.1 - Panlobular emphysema - Time Spent With Patient Total time spent is greater than 50% in coordination of care (as documented) at patient's floor/unit and/or counseling patient: Greater than 35 minutes
[2017-11-15] MEDS ORDERED: *HR* HYDROcodone/Acet 5/325 mg TABLET PO PRN (13:58)
[2017-11-15] MEDS ORDERED: Fluticasone Propionate Nasal 50 MCG/SPRAY BOTTLE NS PRN (13:58)
[2017-11-15] MEDS ORDERED: Gadolinium Contrast Agent (WT Based) IV PRN (14:02)
[2017-11-15] MEDS ORDERED: Naloxone 0.4 MG/ML INJ IVP PRN (14:05)
[2017-11-15] MEDS: Albuterol 2.5 MG/3 ML NEBULIZER IH SCH ×2 (16:12→22:01)
[2017-11-15] MEDS: Piperacillin/Tazobactam 3.375 GM in 0.9 % Sodium Chloride Mini Bag 100 ML IVPB SCH ×2 (17:22→23:42)
[2017-11-15] MEDS: Losartan/HCTZ 50-12.5 TABLET PO SCH (17:23)
[2017-11-15] MEDS: *HR* Heparin 5,000 UNIT/ML VIAL SQ SCH ×2 (17:56→23:40)
[2017-11-15] MEDS: Budesonide/Formoterol 160/4.5 MDI IH SCH (22:01)
[2017-11-16] MEDS: 0.9 % Sodium Chloride 1,000 ML IVC SCH (00:37)
[2017-11-16 03:41] LABS: Hematocrit 36.2 % (35.3-44.9); Mean Corpuscular HGB Conc 31.8 g/dL (31.6-35.5); Mean Platelet Volume 9.6 fL (9.4-12.4); Platelet Count 263 K/mcL (140-400); Red Blood Count 3.48 M/mcL (3.82-4.97); Red Cell Distribution Width 13.8 % (11.5-14.5)
[2017-11-16 03:50] LABS: BUN/Creatinine Ratio 25 (6-26); Blood Urea Nitrogen 16 mg/dL (8-23); Calcium 9.4 mg/dL (8.6-10.3); Carbon Dioxide 22 mEq/L (23-29); Chloride 107 mEq/L (98-107); Glucose 60 mg/dL (70-105); Osmolality,Calculated 289 (280-300); Potassium 3.8 mEq/L (3.5-5.1); Sodium 140 mEq/L (136-145); eGFR For African Americans > 60 (> 60); eGFR For Non-African Americans > 60 (> 60)
[2017-11-16 03:53] LABS: Hemoglobin 11.5 g/dL (11.5-15.4)
[2017-11-16] MEDS: D5% in 0.45% NACL 1,000 ML IVC SCH ×2 (06:20→22:34)
[2017-11-16] MEDS: Albuterol 2.5 MG/3 ML NEBULIZER IH SCH ×3 (07:50→23:11)
[2017-11-16] MEDS: Budesonide/Formoterol 160/4.5 MDI IH SCH ×2 (07:51→23:11)
[2017-11-16] MEDS: *HR* Heparin 5,000 UNIT/ML VIAL SQ SCH ×2 (07:55→16:12)
[2017-11-16] MEDS: Piperacillin/Tazobactam 3.375 GM in 0.9 % Sodium Chloride Mini Bag 100 ML IVPB SCH ×2 (07:56→16:12)
[2017-11-16] MEDS: Cyanocobalamin (B-12) 1,000 MCG TABLET PO SCH (08:01)
[2017-11-16] MEDS: Magnesium Oxide 400 MG TABLET PO SCH (08:01)
[2017-11-16] MEDS: Metoprolol XL (24 HR) Succ 50 MG TAB.ER.24H PO SCH (08:01)
--- NOTE | 2017-11-16 09:02 | Internal Med Progress Note ---
Date of Encounter: 11/16/17 Time of Encounter: 08:45 - Assessment and plan (1) Mass of left lung Current Visit: Yes Status: Acute Assessment and plan: Suspect either metastatic disease from esophageal primary or primary lung cancer. Plan Consultation with pulmonology (2) Esophageal mass Current Visit: Yes Status: Acute Assessment and plan: Rule out stricture, mass or other pathology. Significant air-fluid level noted on CT chest. This is probably the cause of cachexia and spill over to the right lower lobe causing aspiration pneumonitis. Plan Consultation with gastroenterology (3) Aspiration pneumonitis Current Visit: Yes Status: Acute Assessment and plan: Given the lack of leukocytosis and fever or typical symptoms of pneumonia, acute bacterial pneumonia is less likely. Right lower lobe consolidation is likely a sequelae of chronic aspiration pneumonitis. Plan Continue Zosyn at this time. Try to obtain the spray cultures. (4) Kidney mass Current Visit: Yes Status: Acute Assessment and plan: Could be a cyst but MRI is pending. (5) Cachexia Current Visit: Yes Status: Acute Assessment and plan: Once esophageal pathology is addressed, we will consider advancing diet and supplementation. (6) Protein-calorie malnutrition, severe Current Visit: No Status: Acute (7) COPD (chronic obstructive pulmonary disease) with emphysema Current Visit: Yes Status: Chronic Qualifiers: Emphysema type: panlobular Qualified Code(s): J43.1 - Panlobular emphysema (8) Dementia Current Visit: No Status: Chronic Qualifiers: Dementia type: unspecified type Dementia behavioral disturbance: without behavioral disturbance Qualified Code(s): F03.90 - Unspecified dementia without behavioral disturbance (9) Atrial fibrillation Current Visit: Yes Status: Chronic Qualifiers: Atrial fibrillation type: unspecified Qualified Code(s): I48.91 - Unspecified atrial fibrillation (10) Hyperlipidemia Current Visit: Yes Status: Chronic Qualifiers: Qualified Code(s): E78.5 - Hyperlipidemia, unspecified (11) Hypertension Current Visit: No Status: Chronic Qualifiers: Hypertension type: essential hypertension Qualified Code(s): I10 - Essential (primary) hypertension (12) Advance directive infomation pending assessment Current Visit: Yes Status: Acute Assessment and plan: Needs goals of care discussion with the family. Consult palliative care. We will follow. - Time Spent With Patient Total time spent is greater than 50% in coordination of care (as documented) at patient's floor/unit and/or counseling patient: 25 - 35 minutes - Subjective Interval history: Patient is not holdable from underlying dementia which limits interview. - Constitutional Vitals: Temp Pulse Resp BP Pulse Ox 98.4 F 88 17 123/66 100 11/16/17 03:18 11/16/17 03:18 11/16/17 07:52 11/16/17 03:18 11/16/17 07:52 General appearance: Present: cachectic Exam: Physical exam Gen: Comfortable, laying in bed, in no visible distress HEENT: Normocephalic, atraumatic. No conjunctival icterus. Moist oral mucosa. Neck: Supple Lungs: Clear to auscultation, bibasilar right more than left crackles Heart: Normal S1-S2, no murmurs rubs or gallops Abdomen: Normoactive bowel sounds, no guarding rigidity or tenderness, scaphoid abdomen Extremities: No edema clubbing or cyanosis Neuro: Alert oriented 3, no focal deficits Skin: No skin lesions Internal Medicine: Result - Labs CBC & Chem 7: 11/16/17 03:04 11/16/17 03:04 Labs: Short CBC 11/16/17 Range/Units 03:04 WBC 9.1 (4.3-11.1) K/mcL Hgb 11.5 D (11.5-15.4) g/dL Hct 36.2 (35.3-44.9) % Plt Count 263 (140-400) K/mcL BMP 11/16/17 03:04 Sodium 140 Potassium 3.8 Chloride 107 Carbon Dioxide 22 L BUN 16 Creatinine 0.64 Glucose 60 L Calcium 9.4 - ABG Interpretation ABG results: PT/INR, D-dimer PT 11.7 Seconds (9.4-12.1) 11/15/17 11:22 Consult Discharge Plan - Plan Referrals: Slime Laguna, P[employer]ALL[employer] MACHINE OPERATOR [Primary Care Provider] -
--- NOTE | 2017-11-16 10:09 | Palliative - Consult Note ---
Date of Encounter: 11/16/17 Time of Encounter: 10:00 - Assessment and Plan (1) Dyspnea Current Visit: Yes Status: Acute Assessment and plan: Patient currently receiving treatment with IV Zosyn/Vanc, steroids, bronchodilators, Symbicort, Oxygen. Monitor. Qualifiers: Dyspnea type: unspecified Qualified Code(s): R06.00 - Dyspnea, unspecified (2) Nausea & vomiting Current Visit: Yes Status: Acute Assessment and plan: Ondansetron PRN and monitor. Qualifiers: Qualified Code(s): R11.2 - Nausea with vomiting, unspecified (3) Cachexia Current Visit: Yes Status: Acute (4) Counseling regarding advanced care planning and goals of care Current Visit: Yes Status: Acute Assessment and plan: Patient states she lives with son, Wilma and her granddaughter, and states son is her power of senior trial attorney. Other daughter, Nikki, lives in the [facility]. I ran into her son briefly, but he had to leave for appt and will be returning this afternoon. Informed Dr. Berman. Son states that they did power of senior trial attorney years ago, but did not get the "paperwork returned". Discussed that we do not have anything on file here, and discussed pt may benefit from completing an updated form during this admission. Son states that they are desiring biopsy for definitive diagnosis. Patient does not seem to have a good understanding of code status - will discuss with son along with pt when able. (5) Mass of left lung Current Visit: Yes Status: Acute Assessment and plan: Awaiting pulmonology consult. (6) COPD (chronic obstructive pulmonary disease) with emphysema Current Visit: Yes Status: Chronic Qualifiers: Emphysema type: panlobular Qualified Code(s): J43.1 - Panlobular emphysema Palliative-CN HPI - Data of Consult Consult date: 11/16/17 Requesting Physician: Jessica Cazares MD Primary Care Provider: Slime Laguna CNP - Consult Narrative History of present illness: Ms. Iqbal is a 82 year old female with a history of COPD, atrial fib, hypertension, who was admitted with increasing shortness of breath that started about a week prior to admission, also increasing nausea/vomiting. States she has had weight loss of approximately 25 lbs within the past year. Initial workup included CT chest which demonstrated JOANNA pulmonary mass, RLL consolidation - likely necrotizing pneumonia possibly from aspiration, esophageal dilatation possibly related to stricture or other lesion. She has been started on IV antibiotic therapy, fluids, and is receiving oxygen. NPO at this time, r/t speech therapy consult. Awaiting pulmonology consult. . Upon my visit, she appears in no distress. Has productive cough, with darby phelgm in cup at bedside. Complains of mild abdominal pain, but cannot describe in any detail. States she lives with her son, Wilma and a granddaughter at home. CC: Jessica Cazares MD Past Med Surg Social Fam HX - Past Medical History Medical history: atrial fibrillation, COPD, dementia, hyperlipidemia, hypertension, other Psychiatric history: no psych history - Past Surgical History Surgical History: orthopedic, other, other - Social History Smoking Status: Current every day smoker Smokeless Tobacco Status: No Alcohol use: none Drug use: none - Family History Mother Living Status: Hx Family Cardiac Disorders: Yes (HTN) Hx Family Cancer: Yes Father Living Status: Hx Family Cardiac Disorders: Yes (hypertension) Hx Family Respiratory Disorders: Yes (TB) Medications and Allergies Citalopram [CeleXA] 20 mg PO QAM 09/14/15 [History] Esomeprazole Magnesium [Nexium] 40 mg PO QPM 09/14/15 [History] Metoprolol XL (24 HR) Succ [Toprol Xl] 50 mg PO QAM 09/14/15 [History] Simvastatin [Zocor] 20 mg PO QPM 09/14/15 [History] Albuterol Sulfate [Proair Hfa] 2 puff IH Q4-6H PRN 09/17/15 [History] Budesonide/Formoterol 160/4.5 [Symbicort 160/4.5] 2 puff IH BIDR 09/17/15 [ History] Albuterol Neb [Proventil Neb] 2.5 mg IH TID 01/29/16 [History] Donepezil [Aricept] 10 mg PO HS 04/06/16 [History] Fluticasone Propionate Nasal [Flonase] 1 spray NS DAILY PRN 04/06/16 [History] Losartan/HCTZ [Hyzaar 50-12.5 Tablet] 1 tab PO QPM #0 04/07/16 [Rx] Cyanocobalamin (B-12) [Vitamin B12] 1,000 mcg PO DAILY #30 tablet 08/17/16 [Rx] Magnesium Oxide [Mag-Ox] 400 mg PO DAILY #30 tablet 08/17/16 [Rx] HYDROcodone/Acet 5/325 mg [[place] 5-325 mg] 0.5 - 1 tab PO BID PRN 11/15/17 [ History] 3 Allergy/AdvReac Type Severity Reaction Status Date / Time No Known Allergies Allergy Verified 11/15/17 13:15 ROS unobtainable: due to mental status (Patient does state short of breath at times, difficulty swallowing, coughing up darby colored phlegm, some nausea and vomiting. Patient poor historian, struggles to answer some questions. ) Palliative Care-Exam - Constitutional Vitals: Temp Pulse Resp BP Pulse Ox 98.4 F 88 17 123/66 100 11/16/17 03:18 11/16/17 03:18 11/16/17 07:52 11/16/17 03:18 11/16/17 07:52 General appearance: Present: no acute distress, thin - Head Head Exam: Present: normal inspection, normocephalic - Respiratory Respiratory exam: Present: decreased breath sounds Additional comments: Breath sounds diminished bilateral lower lobes - pt with shallow inspiratory effort. - Cardiovascular Cardiovascular exam: Present: irregular rhythm - GI/Abdominal Exam GI/Abdominal exam: Present: normal bowel sounds, soft - Extremities Exam Extremities exam: Present: normal capillary refill, normal inspection - Neurological Exam Neurological exam: Present: alert Additional comments: Oriented to name and place - needs reoriented to time and situation. LYNCH, follows simple commands. - Skin Skin exam: Present: dry, pallor, warm Internal Medicine - CN: Reslt - Labs CBC & Chem 7: 11/16/17 03:04 11/16/17 03:04 Labs: Short CBC 11/16/17 Range/Units 03:04 WBC 9.1 (4.3-11.1) K/mcL Hgb 11.5 D (11.5-15.4) g/dL Hct 36.2 (35.3-44.9) % Plt Count 263 (140-400) K/mcL BMP 11/16/17 03:04 Sodium 140 Potassium 3.8 Chloride 107 Carbon Dioxide 22 L BUN 16 Creatinine 0.64 Glucose 60 L Calcium 9.4 - ABG Interpretation ABG results: PT/INR, D-dimer PT 11.7 Seconds (9.4-12.1) 11/15/17 11:22 Consult Discharge Plan - Plan Referrals: Slime Laguna CNP [Primary Care Provider] - Palliative Quality Palliative Quality: Screen for Code Status: NA (AWaiting son for discussion), Screen for Goals of Care: NA, Screen for Pain: Yes, If Pain Regimen Started, Initiate Bowel Regimen: Yes, Screen for Nausea/Vomitting: Yes
[2017-11-16] MEDS ORDERED: Ondansetron 4 MG/2 ML VIAL IVP PRN (10:12)
--- NOTE | 2017-11-16 10:20 | Electrocardiograph Report ---
[place] [id number] Test Date: 2017-11-15 Pat Name: Juani Iqbal Department: 102 Room: 2A35 Gender: F Cyanide Pot Hardener: : 1935 Requested By: Torrey Magallanes Order Number: [id number] Reading MD: Clemencia Williamson Measurements Intervals [place] Rate: 81 P: 73 NH: 132 QRS: 5 QRSD: 135 T: 88 QT: 390 QTc: 428 Interpretive Statements SINUS RHYTHM LEFT BUNDLE BRANCH BLOCK Electronically Signed On 11-16-2017 10:18:47 EDT by Clemencia Williamson
--- NOTE | 2017-11-16 11:43 | Pulmonology Consult Note ---
Date of Encounter: 11/16/17 Time of Encounter: 11:30 Assessment and Plan (1) Mass of left lung Current Visit: Yes Status: Acute Patient has 3 cm mass in the Left upper lobe near the aorta will be difficult to get a biopsy of the mass . Will discuss with of possibility of Navigation bronchoscopy (2) Pneumonia Current Visit: Yes Status: Acute Patient looks like have aspiration pneumonia with such dilated esophagus concern for necrotizing pneumonia will cover with broad spectrum antibiotics . Underlying mass cannot be excluded will Do Flexible bronchoscopy with airway exam to look for any endobronchial lesion for biopsy . Patient Son says patient will wants to know what is diagnosis and prognosis before changing goals of care since patient is demented with poor functional status patient wont be a candidate for chemoradiation . Patient sons he wants her Mother to be Full code he is ok for Mother undergo bronchoscopy for possible endobronchial biopsy son signed the consent, will put on the schedule for tomorrow . NPO after Midnight . Qualifiers: Pneumonia type: due to unspecified organism Laterality: right Lung location: unspecified part of lung Qualified Code(s): J18.9 - Pneumonia, unspecified organism (3) Protein-calorie malnutrition, severe Current Visit: No Status: Acute Patient is severely Malnourished (4) Suspected chronic obstructive pulmonary disease based on initial evaluation Current Visit: Yes Status: Acute Patient is a long time smoker with wheezing on exam will treat as COPD exacerbation . No PFT'S on file History of Present Illness Consult date: 11/16/17 Requesting physician: Michelle Barroso Reason for consult: dyspnea Chief complaint: Shortness of breadth History of present illness: 82 year old female with past medical history ? COPD no PFT'S on file comes with 1 month shortness of breadth , weight loss, getting progressively weaker , has dementia at baseline patient had some cough with some sputum production , but no hemoptysis patient was admitted for work up for the JOANNA mass and RLL necrotizing pneumonia concerning for underlying lung mass pulmonary was consulted for Bronchoscopy . Past Med Surg Social Fam HX - Past Medical History Medical history: atrial fibrillation, COPD, dementia, hyperlipidemia, hypertension, other Psychiatric history: no psych history - Past Surgical History Surgical History: orthopedic, other, other - Social History Smoking Status: Current every day smoker Smokeless Tobacco Status: No Alcohol use: none Drug use: none - Family History Mother Living Status: Hx Family Cardiac Disorders: Yes (HTN) Hx Family Cancer: Yes Father Living Status: Hx Family Cardiac Disorders: Yes (hypertension) Hx Family Respiratory Disorders: Yes (TB) Medications and Allergies Citalopram [CeleXA] 20 mg PO QAM 09/14/15 [History] Esomeprazole Magnesium [Nexium] 40 mg PO QPM 09/14/15 [History] Metoprolol XL (24 HR) Succ [Toprol Xl] 50 mg PO QAM 09/14/15 [History] Simvastatin [Zocor] 20 mg PO QPM 09/14/15 [History] Albuterol Sulfate [Proair Hfa] 2 puff IH Q4-6H PRN 09/17/15 [History] Budesonide/Formoterol 160/4.5 [Symbicort 160/4.5] 2 puff IH BIDR 09/17/15 [ History] Albuterol Neb [Proventil Neb] 2.5 mg IH TID 01/29/16 [History] Donepezil [Aricept] 10 mg PO HS 04/06/16 [History] Fluticasone Propionate Nasal [Flonase] 1 spray NS DAILY PRN 04/06/16 [History] Losartan/HCTZ [Hyzaar 50-12.5 Tablet] 1 tab PO QPM #0 04/07/16 [Rx] Cyanocobalamin (B-12) [Vitamin B12] 1,000 mcg PO DAILY #30 tablet 08/17/16 [Rx] Magnesium Oxide [Mag-Ox] 400 mg PO DAILY #30 tablet 08/17/16 [Rx] HYDROcodone/Acet 5/325 mg [[place] 5-325 mg] 0.5 - 1 tab PO BID PRN 11/15/17 [ History] 3 Allergy/AdvReac Type Severity Reaction Status Date / Time No Known Allergies Allergy Verified 11/15/17 13:15 All Systems: The remainder of the systems were reviewed and are negative Physical Examination Vital Signs: Vital Signs, Last 4 Hours Temp Pulse Resp BP Pulse Ox 11/16/17 10:33 98 F 85 20 107/66 99 11/16/17 07:52 17 100 Auscultation: right: diminished breath sounds, bilateral: wheezes (bilateral scattered wheezes ) Results - Laboratory Findings CBC and BMP: 11/16/17 03:04 11/16/17 03:04 PT/INR, D-dimer PT 11.7 Seconds (9.4-12.1) 11/15/17 11:22 Abnormal lab findings: Abnormal lab results RBC 3.48 M/mcL (3.82-4.97) L 11/16/17 03:04 MCV 104.0 fL (83.0-100.0) H 11/16/17 03:04 Carbon Dioxide 22 mEq/L (23-29) L 11/16/17 03:04 Glucose 60 mg/dL (70-105) L 11/16/17 03:04 POC Glucose 59 mg/dL (70-99) L 11/16/17 05:58 Direct Bilirubin 0.3 mg/dL (0.0-0.2) H 11/15/17 11:22 B-Natriuretic Peptide 105 pg/mL (Less than 100) H 11/16/17 03:04 Albumin 2.7 g/dL (3.5-5.7) L 11/15/17 11:22 Globulin 4.0 g/dL (2.4-3.5) H 11/15/17 11:22 Albumin/Globulin Ratio 0.7 (1.1-2.2) L 11/15/17 11:22 - Diagnostic Findings CT scan - chest: report reviewed, image reviewed - Clinical Findings Intake & Output: Intake & Output 11/15/17 11/16/17 11/16/17 23:59 07:59 15:59 Intake Total 0 / 0 1600 / 1600 Output Total 0 / 0 0 / 0 Balance 0 / 0 1600 / 1600 Weight 40.3 kg Consult Discharge Plan - Plan Referrals: Slime Laguna, WARDROBE COORDINATOR [Primary Care Provider] -
[2017-11-16] MEDS ORDERED: Vancomycin 500 MG in 0.9 % Sodium Chloride 250 ML IVPB SCH (13:00)
[2017-11-16] MEDS ORDERED: MethylPREDNISolone 40 MG/ML VIAL IVP SCH (16:00)
[2017-11-16] MEDS: Losartan/HCTZ 50-12.5 TABLET PO SCH (17:46)
[2017-11-16] MEDS: MethylPREDNISolone 40 MG/ML VIAL IVP SCH (20:19)
[2017-11-17] MEDS: *HR* Heparin 5,000 UNIT/ML VIAL SQ SCH ×3 (00:23→15:40)
[2017-11-17] MEDS: Piperacillin/Tazobactam 3.375 GM in 0.9 % Sodium Chloride Mini Bag 100 ML IVPB SCH ×3 (00:23→15:43)
[2017-11-17] MEDS: MethylPREDNISolone 40 MG/ML VIAL IVP SCH ×2 (03:45→17:30)
[2017-11-17 06:31] LABS: Hematocrit 36.4 % (35.3-44.9); Immature Granulocytes % 0.8 % (0-4); Lymphocytes # 0.5 K/mcL (0.6-4.6); Lymphocytes % 8.9 %; Mean Corpuscular Hemoglobin 33.8 pg (28.0-33.3); Mean Corpuscular Volume 102.5 fL (83.0-100.0); Mean Platelet Volume 9.5 fL (9.4-12.4); Monocytes # 0.1 K/mcL (0.0-1.3); Monocytes % 1.7 %; Neutrophils # 4.7 K/mcL (1.6-8.9); Platelet Count 204 K/mcL (140-400); Red Blood Count 3.55 M/mcL (3.82-4.97); Red Cell Distribution Width 13.7 % (11.5-14.5); Segmented Neutrophils % 88.6 %
[2017-11-17 06:41] LABS: INR 1.2; Prothrombin Time 12.5 Seconds (9.4-12.1)
[2017-11-17 06:53] LABS: BUN/Creatinine Ratio 17 (6-26); Blood Urea Nitrogen 8 mg/dL (8-23); Carbon Dioxide 26 mEq/L (23-29); Chloride 103 mEq/L (98-107); Glucose 209 mg/dL (70-105); Osmolality,Calculated 284 (280-300); Potassium 3.3 mEq/L (3.5-5.1); Sodium 135 mEq/L (136-145); eGFR For African Americans > 60 (> 60); eGFR For Non-African Americans > 60 (> 60)
[2017-11-17] MEDS: Albuterol 2.5 MG/3 ML NEBULIZER IH SCH ×3 (07:29→22:05)
[2017-11-17] MEDS: Budesonide/Formoterol 160/4.5 MDI IH SCH ×2 (07:30→22:05)
[2017-11-17] MEDS: Cyanocobalamin (B-12) 1,000 MCG TABLET PO SCH (08:54)
[2017-11-17] MEDS: Metoprolol XL (24 HR) Succ 50 MG TAB.ER.24H PO SCH (08:54)
[2017-11-17] MEDS: Magnesium Oxide 400 MG TABLET PO SCH (08:55)
--- NOTE | 2017-11-17 09:11 | Palliative Progress Note ---
Date of Encounter: 11/17/17 Time of Encounter: 09:00 - Assessment and plan (1) Abdominal pain Current Visit: Yes Status: Acute Assessment and plan: She has been NPO since admission and this continues today for testing. Will transition oral pain pill to SL liquid PRN and monitor. (2) Dyspnea Current Visit: Yes Status: Acute Qualifiers: Dyspnea type: unspecified Qualified Code(s): R06.00 - Dyspnea, unspecified (3) Nausea & vomiting Current Visit: Yes Status: Acute Assessment and plan: She denies at this time. Ondansetron available for PRN use. Qualifiers: Qualified Code(s): R11.2 - Nausea with vomiting, unspecified (4) Cachexia Current Visit: Yes Status: Acute (5) Counseling regarding advanced care planning and goals of care Current Visit: Yes Status: Acute Assessment and plan: Scheduled for bronchoscopy today. Will have ongoing goals of care discussion with son/family as more medical information is obtained. (6) Mass of left lung Current Visit: Yes Status: Acute (7) COPD (chronic obstructive pulmonary disease) with emphysema Current Visit: Yes Status: Chronic Qualifiers: Emphysema type: panlobular Qualified Code(s): J43.1 - Panlobular emphysema - Time Spent With Patient Total time spent is greater than 50% in coordination of care (as documented) at patient's floor/unit and/or counseling patient: - Subjective Interval history: Patient sleeping on my arrival, awakens easily. Oriented to name and place. Quite drowsy this am, and not conversing much. C/o some abdominal discomfort, but cannot elaborate on pain and does not describe. NPO for bronchoscopy today. No family present. - Constitutional Vitals: Abnormal lab results RBC 3.55 M/mcL (3.82-4.97) L 11/17/17 06:20 MCV 102.5 fL (83.0-100.0) H 11/17/17 06:20 MCH 33.8 pg (28.0-33.3) H 11/17/17 06:20 Lymphocytes # 0.5 K/mcL (0.6-4.6) L 11/17/17 06:20 PT 12.5 Seconds (9.4-12.1) H 11/17/17 06:20 Sodium 135 mEq/L (136-145) L 11/17/17 06:20 Potassium 3.3 mEq/L (3.5-5.1) L 11/17/17 06:20 Creatinine 0.47 mg/dL (0.60-1.20) L 11/17/17 06:20 Glucose 209 mg/dL (70-105) H 11/17/17 06:20 POC Glucose 59 mg/dL (70-99) L 11/16/17 05:58 Direct Bilirubin 0.3 mg/dL (0.0-0.2) H 11/15/17 11:22 B-Natriuretic Peptide 105 pg/mL (Less than 100) H 11/16/17 03:04 Albumin 2.7 g/dL (3.5-5.7) L 11/15/17 11:22 Globulin 4.0 g/dL (2.4-3.5) H 11/15/17 11:22 Albumin/Globulin Ratio 0.7 (1.1-2.2) L 11/15/17 11:22 General appearance: Present: no acute distress, thin - Respiratory Respiratory exam: Present: decreased breath sounds, CTAB Additional comments: Shallow inspiratory effort - Cardiovascular Cardiovascular exam: Present: irregular rhythm - GI/Abdominal GI/Abdominal exam: Present: normal bowel sounds, soft - Extremities Exam Extremities exam: Present: normal capillary refill, normal inspection - Neurological Exam Neurological exam: Present: alert Additional comments: Oriented to person/place. Follows simple commands. - Skin Skin exam: Present: dry, pallor, warm Palliative Quality Palliative Quality: Screen for Code Status: NA (AWaiting son for discussion), Screen for Goals of Care: NA, Screen for Pain: Yes, If Pain Regimen Started, Initiate Bowel Regimen: Yes, Screen for Nausea/Vomitting: Yes - Labs CBC & Chem 7: 11/17/17 06:20 11/17/17 06:20 Labs: Laboratory Results - last 24 hr 11/15/17 11/17/17 11/17/17 17:26 06:20 06:20 WBC 5.3 RBC 3.55 L Hgb 12.0 Hct 36.4 MCV 102.5 H MCH 33.8 H MCHC 33.0 RDW 13.7 Plt Count 204 MPV 9.5 Immature Gran % 0.8 Seg Neutrophils % 88.6 Lymphocytes % 8.9 Monocytes % 1.7 Eosinophils % 0.0 Basophils % 0.0 Neutrophils # 4.7 Lymphocytes # 0.5 L Monocytes # 0.1 Eosinophils # 0.0 Basophils # 0.0 PT INR Sodium 135 L Potassium 3.3 L Chloride 103 Carbon Dioxide 26 BUN 8 Creatinine 0.47 L Est GFR ( Amer) > 60 Est GFR (Non-Af Amer) > 60 BUN/Creatinine Ratio 17 Glucose 209 H POC Glucose 79 Calculated Osmolality 284 Calcium 9.0 11/17/17 06:20 WBC RBC Hgb Hct MCV MCH MCHC RDW Plt Count MPV Immature Gran % Seg Neutrophils % Lymphocytes % Monocytes % Eosinophils % Basophils % Neutrophils # Lymphocytes # Monocytes # Eosinophils # Basophils # PT 12.5 H INR 1.2 Sodium Potassium Chloride Carbon Dioxide BUN Creatinine Est GFR ( Amer) Est GFR (Non-Af Amer) BUN/Creatinine Ratio Glucose POC Glucose Calculated Osmolality Calcium - Impressions Impressions Abdomen MRI 11/16/17 14:02 IMPRESSION: 1. In the lower pole of the right kidney, there is a 6.3 x 5.2 x 4.9 cm cystic lesion with thin septations. Mild septal calcification seen on CT. Although motion artifact limits evaluation, no internal enhancement is seen so this is compatible with a Bosniak 2 equivalent renal cyst. 2. Additional 1.6 cm simple cyst in the anterior right kidney. 3. Mild biliary duct dilatation without definite evidence of choledocholithiasis. D/ / Francisco Myers MD / Francisco Myers MD Interpreting Provider: Francisco Myers MD - ABG Interpretation ABG results: PT/INR, D-dimer PT 12.5 Seconds (9.4-12.1) H 11/17/17 06:20 Consult Discharge Plan - Plan Referrals: Slime Laguna, GEAR TOOTH LAPPING MACHINE OPERATOR [Primary Care Provider] -
[2017-11-17] MEDS ORDERED: OXYCODONE Oral CONC 10 MG/0.5 ML ORAL.SYG SL PRN (09:15)
--- NOTE | 2017-11-17 09:55 | Pulmonology Progress Note ---
Date of Encounter: 11/17/17 Time of Encounter: 09:30 Assessment and Plan (1) Mass of left lung Current Visit: Yes Status: Acute Very difficult location the mass abutting the thoracic aorta cannot be done with Navigation very difficult position for CT guided biopsy also . (2) Pneumonia Current Visit: Yes Status: Acute Did Bronchoscopy with Airway exam shows some mucous plugging in the Right main stem , the the bronchial mucosa was friable , bleeding to touch because of bleeding did cytobrush of the RML and BAL and also did BAL of the Left upper lobe sent for microbiology and cytology . Will follow up the results . To continue the broad spectrum antibiotics Qualifiers: Pneumonia type: due to unspecified organism Laterality: right Lung location: unspecified part of lung Qualified Code(s): J18.9 - Pneumonia, unspecified organism (3) Protein-calorie malnutrition, severe Current Visit: No Status: Acute To follow nutritional recs (4) Suspected chronic obstructive pulmonary disease based on initial evaluation Current Visit: Yes Status: Acute To continue the bronchodilators and steroids Subjective Principal diagnosis: Right sided pneumonia with JOANNA mass Interval history: Patient is doing the same no overnight changes Objective PUL Vital signs: Last Vital Signs Temp 97.5 F L 11/17/17 07:18 Pulse 60 11/17/17 07:18 Resp 17 11/17/17 07:18 BP 124/70 11/17/17 07:18 Pulse Ox 98 11/17/17 07:18 Auscultation: bilateral: wheezes Gait: other (could not be assesed ) other (seems depressed ) Results - Laboratory Findings CBC and BMP: 11/17/17 06:20 11/17/17 06:20 PT/INR, D-dimer PT 12.5 Seconds (9.4-12.1) H 11/17/17 06:20 Abnormal lab findings: Abnormal lab results RBC 3.55 M/mcL (3.82-4.97) L 11/17/17 06:20 MCV 102.5 fL (83.0-100.0) H 11/17/17 06:20 MCH 33.8 pg (28.0-33.3) H 11/17/17 06:20 Lymphocytes # 0.5 K/mcL (0.6-4.6) L 11/17/17 06:20 PT 12.5 Seconds (9.4-12.1) H 11/17/17 06:20 Sodium 135 mEq/L (136-145) L 11/17/17 06:20 Potassium 3.3 mEq/L (3.5-5.1) L 11/17/17 06:20 Creatinine 0.47 mg/dL (0.60-1.20) L 11/17/17 06:20 Glucose 209 mg/dL (70-105) H 11/17/17 06:20 POC Glucose 59 mg/dL (70-99) L 11/16/17 05:58 Direct Bilirubin 0.3 mg/dL (0.0-0.2) H 11/15/17 11:22 B-Natriuretic Peptide 105 pg/mL (Less than 100) H 11/16/17 03:04 Albumin 2.7 g/dL (3.5-5.7) L 11/15/17 11:22 Globulin 4.0 g/dL (2.4-3.5) H 11/15/17 11:22 Albumin/Globulin Ratio 0.7 (1.1-2.2) L 11/15/17 11:22 - Clinical Findings Intake & Output: Intake & Output 11/16/17 11/17/17 11/17/17 23:59 07:59 15:59 Intake Total 1100 / 1100 100 / 100 0 / 0 Balance 1100 / 1100 100 / 100 0 / 0 Consult Discharge Plan - Plan Referrals: Slime Laguna, SLIP COVER SEAMSTRESS [Primary Care Provider] -
[2017-11-17] MEDS ORDERED: *HR* Midazolam HCl 5 MG/5 ML VIAL IVP ONE (10:56)
[2017-11-17] MEDS ORDERED: *HR* FentaNYL (PF) 100 MCG/2 ML VIAL ONE (10:57)
[2017-11-17] MEDS ORDERED: Lidocaine Viscous Oral Soln 15 ML SOLUTION ONE (10:58)
--- NOTE | 2017-11-17 11:21 | Gastroenterology Consult Note ---
<Kerwin Cha - Last Filed: 11/17/17 11:19> Date of Encounter: 11/17/17 Time of Encounter: 10:20 - Assessment and plan (1) Mass of left lung Current Visit: Yes Status: Acute Assessment and plan: Pulm planning for bronchoscopy today. (2) Esophageal mass Current Visit: Yes Status: Acute Assessment and plan: CT chest which demonstrated JOANNA pulmonary mass, RLL consolidation - likely necrotizing pneumonia possibly from aspiration, esophageal dilatation possibly related to stricture or other lesion. Bronchoscopy is planned for today per pulmonology. We will plan for EGD tomorrow or . (3) Nausea & vomiting Current Visit: Yes Status: Acute Assessment and plan: Denies any today. Qualifiers: Vomiting type: unspecified Vomiting Intractability: unspecified Qualified Code(s): R11.2 - Nausea with vomiting, unspecified (4) Dementia Current Visit: No Status: Chronic Qualifiers: Dementia type: unspecified type Dementia behavioral disturbance: without behavioral disturbance Qualified Code(s): F03.90 - Unspecified dementia without behavioral disturbance (5) Protein-calorie malnutrition, severe Current Visit: No Status: Acute - Time Spent With Patient Total time spent is greater than 50% in coordination of care (as documented) at patient's floor/unit and/or counseling patient: GI History of Present Illness - Data of Consult Patient: new to practice Consult date: 11/17/17 Requesting Physician: Leisa Dewitt MD - Consult Narrative Reason for consult: Suspect esophageal cancer History of present illness: Ms. Iqbal is a 82 year old female with PMHx of Afib, COPD, dementia, HLD, HTN , cachectic who presented to the ED with shortness of breath for 1 week. She reports weight loss of 25 lbs over the past year. She has been coughing for over last week, with white mucus profusely. She become more shortness of breath over last few days. Initial workup included CT chest which demonstrated JOANNA pulmonary mass, RLL consolidation - likely necrotizing pneumonia possibly from aspiration, esophageal dilatation possibly related to stricture or other lesion. We were consulted for EGD. Procedures: Colonoscopy 09/06/2010 Dr. Taylor: Internal hemorrhoids, diverticulosis. NSAIDs: None Anticoagulation: None Past Med Surg Social Fam HX - Past Medical History Medical history: atrial fibrillation, COPD, dementia, hyperlipidemia, hypertension, other Psychiatric history: no psych history - Past Surgical History Surgical History: orthopedic, other, other - Social History Smoking Status: Current every day smoker Smokeless Tobacco Status: No Alcohol use: none Drug use: none - Family History Mother Living Status: Hx Family Cardiac Disorders: Yes (HTN) Hx Family Cancer: Yes Father Living Status: Hx Family Cardiac Disorders: Yes (hypertension) Hx Family Respiratory Disorders: Yes (TB) - Gastrointestinal Gastrointestinal: Present: as per HPI - Constitutional Constitutional: as per HPI - EENT Eyes: as per HPI Ears: Present: as per HPI Nose, mouth and throat: Present: as per HPI - Cardiovascular Cardiovascular ROS: Present: as per HPI - Respiratory Respiratory IM: Present: as per HPI - Genitourinary Genitourinary: Absent: change in color, Urinary frequency - Neurological ROS Neurological GI: Present: as per HPI - Hematologic/Lymphatic Hematologic/Lymphatic pediatric: Present: as per HPI - Musculoskeletal Musculoskeletal ROS GI: Present: as per HPI - Integumentary Integumentary GI: Present: as per HPI - Psychiatric ROS Psychiatric GI: Present: as per HPI - Endocrine Endocrine IM: Present: as per HPI - Constitutional Vitals: Temp Pulse Resp BP Pulse Ox 97.5 F L 60 17 124/70 98 11/17/17 07:18 11/17/17 07:18 11/17/17 07:18 11/17/17 07:18 11/17/17 07:18 General appearance: Present: cachectic, cooperative, A&O X 2 - Head Head exam: Present: atraumatic, normocephalic - Eye Eye exam: Present: normal appearance, sclera anicteric - ENT ENT exam: Present: mucous membranes dry - Neck Neck exam general surgery: Present: normal inspection, trachea midline - Respiratory Respiratory exam: Present: decreased breath sounds, CTAB - Cardiovascular Cardiovascular exam: Present: RRR, +S1, +S2 - GI/Abdominal GI/Abdominal exam: Present: soft, no peritoneal signs. Absent: distended, firm , guarding, tenderness - Rectal Rectal exam: Present: deferred - Extremities Exam Extremities exam: Present: warm - Neurological Exam Additional comments: oriented x2 - Psychiatric Psychiatric exam: Present: normal affect, normal mood - Skin Skin exam: Present: dry, intact, normal color, warm Results - Labs CBC & Chem 7: 11/17/17 06:20 11/17/17 06:20 Labs: Last Result Calcium 9.0 mg/dL (8.6-10.3) 11/17/17 06:20 Troponin I < 0.03 ng/mL (< 0.04) 11/15/17 11:22 Entire Visit Hgb 12.0 g/dL (11.5-15.4) 11/17/17 06:20 Hct 36.4 % (35.3-44.9) 11/17/17 06:20 PT 12.5 Seconds (9.4-12.1) H 11/17/17 06:20 Total Bilirubin 0.5 mg/dL (0.3-1.0) 11/15/17 11:22 AST 23 Units/L (13-39) 11/15/17 11:22 ALT 7 Units/L (7-52) 11/15/17 11:22 Amylase 38 Units/L (29-103) 11/15/17 11:22 Lipase 18 Units/L (11-82) 11/15/17 11:22 - ABG ABG results: PT/INR, D-dimer PT 12.5 Seconds (9.4-12.1) H 11/17/17 06:20 - Impressions Impressions Abdomen MRI 11/16/17 14:02 IMPRESSION: 1. In the lower pole of the right kidney, there is a 6.3 x 5.2 x 4.9 cm cystic lesion with thin septations. Mild septal calcification seen on CT. Although motion artifact limits evaluation, no internal enhancement is seen so this is compatible with a Bosniak 2 equivalent renal cyst. 2. Additional 1.6 cm simple cyst in the anterior right kidney. 3. Mild biliary duct dilatation without definite evidence of choledocholithiasis. D/ / Francisco Myers MD / Francisco Myers MD Interpreting Provider: Francisco Myers MD Consult Discharge Plan - Plan Referrals: Slime Laguna, TAKE AWAY ATTENDANT [Primary Care Provider] - <Scout Mcbride - Last Filed: 11/18/17 10:25> Date of Encounter: 11/17/17 - Time Spent With Patient Total time spent is greater than 50% in coordination of care (as documented) at patient's floor/unit and/or counseling patient: GI History of Present Illness - Data of Consult Requesting Physician: Leisa Dewitt MD - Consult Narrative History of present illness: Ms. Iqbal is a 82 year old female - Constitutional Vitals: Temp Pulse Resp BP Pulse Ox 97.4 F L 69 16 135/83 100 11/18/17 06:47 11/18/17 06:47 11/18/17 07:47 11/18/17 06:47 11/18/17 07:47 Results - Labs CBC & Chem 7: 11/18/17 05:55 11/18/17 05:55 Labs: Last Result Calcium 8.7 mg/dL (8.6-10.3) 11/18/17 05:55 Troponin I < 0.03 ng/mL (< 0.04) 11/15/17 11:22 Entire Visit Hgb 11.2 g/dL (11.5-15.4) L 11/18/17 05:55 Hct 34.9 % (35.3-44.9) L 11/18/17 05:55 PT 12.4 Seconds (9.4-12.1) H 11/18/17 05:55 Total Bilirubin 0.5 mg/dL (0.3-1.0) 11/15/17 11:22 AST 23 Units/L (13-39) 11/15/17 11:22 ALT 7 Units/L (7-52) 11/15/17 11:22 Amylase 38 Units/L (29-103) 11/15/17 11:22 Lipase 18 Units/L (11-82) 11/15/17 11:22 - ABG ABG results: PT/INR, D-dimer PT 12.4 Seconds (9.4-12.1) H 11/18/17 05:55 - Attending Attestation Unfortunate 82 year old white female with lung mass who is being seen by pulmonary and they are planning bronchoscopy. Will plan EGD to address the GE junction abnormality - benign versus malignant stricture. Further recommendations post review of pulmonary's findings. Thank you for this consultation. I have personally performed a face to face evaluation on this patient. I have reviewed and agree with the care plan. History and Exam by me shows:
[2017-11-17] MEDS ORDERED: *HR* EPINEPHrine 1 MG/10 ML SYRINGE INTRATRACH PRN (11:52)
[2017-11-17] MEDS ORDERED: MethylPREDNISolone 40 MG/ML VIAL IVP SCH ×2 (12:00→16:00)
[2017-11-17] MEDS ORDERED: Potassium Chloride Elixir 20 MEQ/15 ML UDC PO ONE (12:01)
[2017-11-17] MEDS ORDERED: *HR* EPINEPHrine 1 MG/10 ML SYRINGE ONE (15:09)
[2017-11-17 15:39] LABS: Source of Body Fluid LEFT UPPER LOBE LUNG
[2017-11-17] MEDS ORDERED: Gadolinium Contrast Agent (WT Based) IV PRN (16:00)
[2017-11-17] MEDS: D5% in 0.45% NACL 1,000 ML IVC SCH (16:14)
--- NOTE | 2017-11-17 16:15 | Internal Med Progress Note ---
Date of Encounter: 11/17/17 Time of Encounter: 16:14 - Assessment and plan (1) Aspiration pneumonitis Current Visit: Yes Status: Acute Assessment and plan: cont empirical abx Zosyn (2) COPD (chronic obstructive pulmonary disease) with emphysema Current Visit: Yes Status: Chronic Assessment and plan: improving start tapering steroids cont duoneb and O2 Qualifiers: Emphysema type: panlobular Qualified Code(s): J43.1 - Panlobular emphysema (3) Hypertension Current Visit: No Status: Chronic Assessment and plan: resumed home meds Qualifiers: Hypertension type: essential hypertension Qualified Code(s): I10 - Essential (primary) hypertension (4) Dementia Current Visit: No Status: Chronic Qualifiers: Dementia type: unspecified type Dementia behavioral disturbance: without behavioral disturbance Qualified Code(s): F03.90 - Unspecified dementia without behavioral disturbance (5) Protein-calorie malnutrition, severe Current Visit: No Status: Acute Assessment and plan: Heel Seat Fitter consulted (6) Kidney mass Current Visit: Yes Status: Acute (7) Cachexia Current Visit: Yes Status: Acute Assessment and plan: Once esophageal pathology is addressed, we will consider advancing diet and supplementation. (8) Mass of left lung Current Visit: Yes Status: Acute Assessment and plan: Suspect either metastatic disease from esophageal primary or primary lung cancer. s/p bronch will f/u on path report (9) Esophageal mass Current Visit: Yes Status: Acute Assessment and plan: Rule out stricture, mass or other pathology. Significant air-fluid level noted on CT chest. This is probably the cause of cachexia and spill over to the right lower lobe causing aspiration pneumonitis. GI consulted (10) Atrial fibrillation Current Visit: Yes Status: Chronic (11) Hyperlipidemia Current Visit: Yes Status: Chronic (12) Advance directive infomation pending assessment Current Visit: Yes Status: Acute Assessment and plan: N - Time Spent With Patient Total time spent is greater than 50% in coordination of care (as documented) at patient's floor/unit and/or counseling patient: - Subjective Interval history: Ms. Iqbal is a 82 year old female who has COPD, hypertension, cachectic presenting emergency room for shortness of breath for 1 week.CAT of abdomen showed RLL Pneumonia. Pt was admittd in the hospital and started her on empirical abx Zosyna and Vancomycin. She just came back from bronchoscope. She denied any CP . - Constitutional Vitals: Temp Pulse Resp BP Pulse Ox 97.3 F L 64 21 135/74 98 11/17/17 15:43 11/17/17 15:43 11/17/17 15:43 11/17/17 15:43 11/17/17 15:43 General appearance: Present: cachectic, A&O X 3, answers questions appropriately - Head Head exam: Present: atraumatic, normal inspection - Neck Neck exam general surgery: Present: supple - Respiratory Respiratory exam: Present: decreased breath sounds, respiratory distress (mild) , rhonchi. Absent: rales, wheezes - Cardiovascular Cardiovascular exam: Present: RRR, +S1, +S2. Absent: tachycardia - GI/Abdominal GI/Abdominal exam: Present: normal bowel sounds, soft. Absent: rebound, rigid, tenderness - Extremities Exam Extremities exam: Absent: calf tenderness, pedal edema, tenderness Internal Medicine: Result - Labs CBC & Chem 7: 11/17/17 06:20 11/17/17 06:20 Labs: Short CBC 11/17/17 Range/Units 06:20 WBC 5.3 (4.3-11.1) K/mcL Hgb 12.0 (11.5-15.4) g/dL Hct 36.4 (35.3-44.9) % Plt Count 204 (140-400) K/mcL Neutrophils # 4.7 (1.6-8.9) K/mcL BMP 11/17/17 06:20 Sodium 135 L Potassium 3.3 L Chloride 103 Carbon Dioxide 26 BUN 8 Creatinine 0.47 L Glucose 209 H Calcium 9.0 - ABG Interpretation ABG results: PT/INR, D-dimer PT 12.5 Seconds (9.4-12.1) H 11/17/17 06:20 Consult Discharge Plan - Plan Referrals: Slime Laguna, EQUITIES ANALYST [Primary Care Provider] -
[2017-11-17] MEDS: Losartan/HCTZ 50-12.5 TABLET PO SCH (17:02)
[2017-11-17 17:32] LABS: Appearance of Body Fluid Cloudy (Clear); Source of Body Fluid RIGHT MIDDLE LOBE LU; Volume of Body Fluid 40 mL
[2017-11-17 17:33] LABS: Appearance of Body Fluid Cloudy (Clear); Volume of Body Fluid 18 mL
--- NOTE | 2017-11-17 19:50 | Pre-Sedation Evaluation ---
Pre-sedation evaluation - Pre-sedation checklist Date of procedure: 11/17/17 Procedure: Flexible Bronchoscopy Recent Vitals: Last Vital Signs Temp 98.2 F 11/17/17 19:40 Pulse 75 11/17/17 19:40 Resp 18 11/17/17 19:40 BP 132/75 11/17/17 19:40 Pulse Ox 98 11/17/17 19:40 H&P (including ROS) documented in medical record: Yes Previous reaction to sedatives/anesthetics: No Dietary Status: NPO after Midnight Airway Assessment: Patient can open mouth completely, TMJ function normal, Neck with adequate range of motion Dentition: dentures removed Possible difficult airway: No ASA Classification *see protocol: CLASS III-Severe systemic disease Plan of Care: Pt appropriate candidate for procedure/moderate/conscious sedation
[2017-11-18] MEDS: Piperacillin/Tazobactam 3.375 GM in 0.9 % Sodium Chloride Mini Bag 100 ML IVPB SCH ×4 (00:06→23:11)
[2017-11-18] MEDS: *HR* Heparin 5,000 UNIT/ML VIAL SQ SCH ×4 (00:06→23:12)
[2017-11-18] MEDS: MethylPREDNISolone 40 MG/ML VIAL IVP SCH ×2 (05:47→18:23)
[2017-11-18 06:12] LABS: Hematocrit 34.9 % (35.3-44.9); Hemoglobin 11.2 g/dL (11.5-15.4); Immature Granulocytes % 0.9 % (0-4); Lymphocytes # 0.6 K/mcL (0.6-4.6); Mean Corpuscular HGB Conc 32.1 g/dL (31.6-35.5); Mean Corpuscular Hemoglobin 32.7 pg (28.0-33.3); Mean Platelet Volume 9.6 fL (9.4-12.4); Monocytes # 0.3 K/mcL (0.0-1.3); Monocytes % 5.2 %; Neutrophils # 5.5 K/mcL (1.6-8.9); Platelet Count 203 K/mcL (140-400); Red Blood Count 3.42 M/mcL (3.82-4.97); Red Cell Distribution Width 13.8 % (11.5-14.5); Segmented Neutrophils % 84.9 %
[2017-11-18 06:15] LABS: INR 1.1; Prothrombin Time 12.4 Seconds (9.4-12.1)
[2017-11-18 06:31] LABS: BUN/Creatinine Ratio 14 (6-26); Blood Urea Nitrogen 7 mg/dL (8-23); Calcium 8.7 mg/dL (8.6-10.3); Carbon Dioxide 25 mEq/L (23-29); Chloride 105 mEq/L (98-107); Glucose 161 mg/dL (70-105); Osmolality,Calculated 283 (280-300); Potassium 3.4 mEq/L (3.5-5.1); Sodium 136 mEq/L (136-145); eGFR For African Americans > 60 (> 60); eGFR For Non-African Americans > 60 (> 60)
[2017-11-18] MEDS: Budesonide/Formoterol 160/4.5 MDI IH SCH ×2 (07:43→22:18)
[2017-11-18] MEDS: Albuterol 2.5 MG/3 ML NEBULIZER IH SCH ×3 (07:46→22:18)
--- NOTE | 2017-11-18 08:16 | Pulmonology Progress Note ---
Date of Encounter: 11/18/17 Time of Encounter: 08:00 Assessment and Plan (1) Mass of left lung Current Visit: Yes Status: Acute Very difficult location the mass abutting the thoracic aorta cannot be done with Navigation very difficult position for CT guided biopsy also . (2) Pneumonia Current Visit: Yes Status: Acute Did Bronchoscopy with Airway exam shows some mucous plugging in the Right main stem , the the bronchial mucosa was friable , bleeding to touch because of bleeding did cytobrush of the RML and BAL and also did BAL of the Left upper lobe sent for microbiology and cytology . Will follow up the results . To continue the broad spectrum antibiotics 5/ Respiratory culture growing gram positive rods Qualifiers: Pneumonia type: due to unspecified organism Laterality: right Lung location: unspecified part of lung Qualified Code(s): J18.9 - Pneumonia, unspecified organism (3) Protein-calorie malnutrition, severe Current Visit: No Status: Acute To follow nutritional recs (4) Suspected chronic obstructive pulmonary disease based on initial evaluation Current Visit: Yes Status: Acute To continue the bronchodilators and steroids Subjective Principal diagnosis: Right sided pneumonia with JOANNA mass Interval history: Patient is doing the same no overnight changes . Patient is going for EGD Objective PUL Vital signs: Last Vital Signs Temp 97.4 F L 11/18/17 06:47 Pulse 69 11/18/17 06:47 Resp 16 11/18/17 07:47 BP 135/83 11/18/17 06:47 Pulse Ox 100 11/18/17 07:47 Auscultation: bilateral: diminished breath sounds Results - Laboratory Findings CBC and BMP: 11/18/17 05:55 11/18/17 05:55 PT/INR, D-dimer PT 12.4 Seconds (9.4-12.1) H 11/18/17 05:55 Abnormal lab findings: Abnormal lab results RBC 3.42 M/mcL (3.82-4.97) L 11/18/17 05:55 Hgb 11.2 g/dL (11.5-15.4) L 11/18/17 05:55 Hct 34.9 % (35.3-44.9) L 11/18/17 05:55 MCV 102.0 fL (83.0-100.0) H 11/18/17 05:55 PT 12.4 Seconds (9.4-12.1) H 11/18/17 05:55 Potassium 3.4 mEq/L (3.5-5.1) L 11/18/17 05:55 BUN 7 mg/dL (8-23) L 11/18/17 05:55 Creatinine 0.51 mg/dL (0.60-1.20) L 11/18/17 05:55 Glucose 161 mg/dL (70-105) H 11/18/17 05:55 POC Glucose 137 mg/dL (70-99) H 11/17/17 12:23 Direct Bilirubin 0.3 mg/dL (0.0-0.2) H 11/15/17 11:22 B-Natriuretic Peptide 105 pg/mL (Less than 100) H 11/16/17 03:04 Albumin 2.7 g/dL (3.5-5.7) L 11/15/17 11:22 Globulin 4.0 g/dL (2.4-3.5) H 11/15/17 11:22 Albumin/Globulin Ratio 0.7 (1.1-2.2) L 11/15/17 11:22 Prealbumin 10.9 mg/dL (17.0-34.0) L 11/18/17 05:55 Fluid Appearance Cloudy (Clear) A 11/17/17 12:08 - Microbiology Findings Microbiology Findings: Microbiology, Last 48 Hours 11/16/17 23:17 Respiratory Culture - Preliminary Other-Specify in Comments Gram Positive Rods 11/17/17 12:08 Gram Stain - Preliminary Left Upper Lobe Lung 11/17/17 12:08 Gram Stain - Preliminary Right Middle Lobe Lung - Clinical Findings Intake & Output: Intake & Output 11/17/17 11/18/17 11/18/17 23:59 07:59 15:59 Intake Total 300 / 300 Balance 300 / 300 Weight 40.4 kg Consult Discharge Plan - Plan Referrals: Slime Laguna, THREAD MACHINE OPERATOR [Primary Care Provider] -
[2017-11-18] MEDS: D5% in 0.45% NACL 1,000 ML IVC SCH (08:55)
[2017-11-18] MEDS: Magnesium Oxide 400 MG TABLET PO SCH (08:57)
[2017-11-18] MEDS: Metoprolol XL (24 HR) Succ 50 MG TAB.ER.24H PO SCH (08:58)
[2017-11-18] MEDS: Cyanocobalamin (B-12) 1,000 MCG TABLET PO SCH (08:58)
--- NOTE | 2017-11-18 09:04 | Palliative Progress Note ---
Date of Encounter: 11/18/17 Time of Encounter: 09:00 - Assessment and plan (1) Abdominal pain Current Visit: Yes Status: Acute Assessment and plan: She has low dose Oxycodone if needed. Has not utilized. (2) Dyspnea Current Visit: Yes Status: Acute Assessment and plan: Remains on supportive oxygen and treatment for aspiration. Bronchoscopy was completed yesterday - results pending. Monitor. Qualifiers: Dyspnea type: unspecified Qualified Code(s): R06.00 - Dyspnea, unspecified (3) Nausea & vomiting Current Visit: Yes Status: Acute Assessment and plan: Has Ondansetron PRN if needed. Has not utilized. Some nausea earlier this am. Discussed with her again that she has medication available if needed for nausea. Qualifiers: Vomiting type: unspecified Vomiting Intractability: unspecified Qualified Code(s): R11.2 - Nausea with vomiting, unspecified (4) Cachexia Current Visit: Yes Status: Acute Assessment and plan: Awaiting EGD. Remains NPO for now. (5) Counseling regarding advanced care planning and goals of care Current Visit: Yes Status: Acute Assessment and plan: Spoke with son briefly - awaiting EGD this afternoon. He is asking about feeding tube - discussed that after we have more information, we will further discuss goals of care. (6) Mass of left lung Current Visit: Yes Status: Acute (7) COPD (chronic obstructive pulmonary disease) with emphysema Current Visit: Yes Status: Chronic Qualifiers: Emphysema type: panlobular Qualified Code(s): J43.1 - Panlobular emphysema - Time Spent With Patient Total time spent is greater than 50% in coordination of care (as documented) at patient's floor/unit and/or counseling patient: 25 - 35 minutes - Subjective Interval history: Patient awake and aler. Does state she feels anxious with being in hospital. C /o occasional nausea. She spoke with son briefly on phone and stated he would be here soon. - Constitutional Vitals: Abnormal lab results RBC 3.42 M/mcL (3.82-4.97) L 11/18/17 05:55 Hgb 11.2 g/dL (11.5-15.4) L 11/18/17 05:55 Hct 34.9 % (35.3-44.9) L 11/18/17 05:55 MCV 102.0 fL (83.0-100.0) H 11/18/17 05:55 PT 12.4 Seconds (9.4-12.1) H 11/18/17 05:55 Potassium 3.4 mEq/L (3.5-5.1) L 11/18/17 05:55 BUN 7 mg/dL (8-23) L 11/18/17 05:55 Creatinine 0.51 mg/dL (0.60-1.20) L 11/18/17 05:55 Glucose 161 mg/dL (70-105) H 11/18/17 05:55 POC Glucose 137 mg/dL (70-99) H 11/17/17 12:23 Direct Bilirubin 0.3 mg/dL (0.0-0.2) H 11/15/17 11:22 B-Natriuretic Peptide 105 pg/mL (Less than 100) H 11/16/17 03:04 Albumin 2.7 g/dL (3.5-5.7) L 11/15/17 11:22 Globulin 4.0 g/dL (2.4-3.5) H 11/15/17 11:22 Albumin/Globulin Ratio 0.7 (1.1-2.2) L 11/15/17 11:22 Prealbumin 10.9 mg/dL (17.0-34.0) L 11/18/17 05:55 Fluid Appearance Cloudy (Clear) A 11/17/17 12:08 General appearance: Present: no acute distress - Respiratory Respiratory exam: Present: decreased breath sounds, CTAB - Cardiovascular Cardiovascular exam: Present: +S1, +S2 - GI/Abdominal GI/Abdominal exam: Present: normal bowel sounds, soft - Extremities Exam Extremities exam: Present: normal capillary refill, normal inspection - Neurological Exam Neurological exam: Present: alert, strengths equal and symetr throughout Additional comments: Oriented to name and place. Needs reoriented to time and situation. - Skin Skin exam: Present: dry, warm Palliative Quality Palliative Quality: Screen for Code Status: NA (AWaiting son for discussion), Screen for Goals of Care: NA, Screen for Pain: Yes, If Pain Regimen Started, Initiate Bowel Regimen: Yes, Screen for Nausea/Vomitting: Yes - Labs CBC & Chem 7: 11/18/17 05:55 11/18/17 05:55 Labs: Laboratory Results - last 24 hr 11/16/17 11/17/17 11/17/17 23:58 05:34 12:08 WBC RBC Hgb Hct MCV MCH MCHC RDW Plt Count MPV Immature Gran % Seg Neutrophils % Lymphocytes % Monocytes % Eosinophils % Basophils % Neutrophils # Lymphocytes # Monocytes # Eosinophils # Basophils # PT INR Sodium Potassium Chloride Carbon Dioxide BUN Creatinine Est GFR ( Amer) Est GFR (Non-Af Amer) BUN/Creatinine Ratio Glucose POC Glucose 145 H 177 H Calculated Osmolality Calcium Prealbumin Fluid Source RIGHT MIDDLE LOBE ANTONIETA Fluid Volume 18 Fluid Appearance Cloudy A Fluid RBC TNP Fld Tot Nucleated Cell TNP Fluid Seg Neutrophil % 96.0 Fld Band Neutrophil % Test Not Performed Fluid Lymphocytes % 2.0 Fluid Monocytes % Test Not Performed Fluid Eosinophils % Test Not Performed Fluid Basophils % Test Not Performed Fluid Other Cells % 2.0 11/17/17 11/17/17 11/18/17 12:08 12:23 05:55 WBC RBC Hgb Hct MCV MCH MCHC RDW Plt Count MPV Immature Gran % Seg Neutrophils % Lymphocytes % Monocytes % Eosinophils % Basophils % Neutrophils # Lymphocytes # Monocytes # Eosinophils # Basophils # PT 12.4 H INR 1.1 Sodium Potassium Chloride Carbon Dioxide BUN Creatinine Est GFR ( Amer) Est GFR (Non-Af Amer) BUN/Creatinine Ratio Glucose POC Glucose 137 H Calculated Osmolality Calcium Prealbumin Fluid Source LEFT UPPER LOBE LUNG Fluid Volume 40 Fluid Appearance Cloudy A Fluid RBC TNP Fld Tot Nucleated Cell TNP Fluid Seg Neutrophil % 89.0 Fld Band Neutrophil % Test Not Performed Fluid Lymphocytes % 3.0 Fluid Monocytes % Test Not Performed Fluid Eosinophils % Test Not Performed Fluid Basophils % Test Not Performed Fluid Other Cells % 8.0 11/18/17 11/18/17 11/18/17 05:55 05:55 05:55 WBC 6.5 RBC 3.42 L Hgb 11.2 L Hct 34.9 L MCV 102.0 H MCH 32.7 MCHC 32.1 RDW 13.8 Plt Count 203 MPV 9.6 Immature Gran % 0.9 Seg Neutrophils % 84.9 Lymphocytes % 9.0 Monocytes % 5.2 Eosinophils % 0.0 Basophils % 0.0 Neutrophils # 5.5 Lymphocytes # 0.6 Monocytes # 0.3 Eosinophils # 0.0 Basophils # 0.0 PT INR Sodium 136 Potassium 3.4 L Chloride 105 Carbon Dioxide 25 BUN 7 L Creatinine 0.51 L Est GFR ( Amer) > 60 Est GFR (Non-Af Amer) > 60 BUN/Creatinine Ratio 14 Glucose 161 H POC Glucose Calculated Osmolality 283 Calcium 8.7 Prealbumin 10.9 L Fluid Source Fluid Volume Fluid Appearance Fluid RBC Fld Tot Nucleated Cell Fluid Seg Neutrophil % Fld Band Neutrophil % Fluid Lymphocytes % Fluid Monocytes % Fluid Eosinophils % Fluid Basophils % Fluid Other Cells % - ABG Interpretation ABG results: PT/INR, D-dimer PT 12.4 Seconds (9.4-12.1) H 11/18/17 05:55 Consult Discharge Plan - Plan Referrals: Slime Laguna, MACHINE TOOL DRESSER [Primary Care Provider] -
[2017-11-18] MEDS ORDERED: *HR* FentaNYL (PF) 100 MCG/2 ML VIAL ONE (13:28)
[2017-11-18] MEDS ORDERED: *HR* Propofol 200 MG/20 ML VIAL IVP ONE (13:29)
[2017-11-18] MEDS ORDERED: *HR* Succinylcholine 200 MG/10 ML VIAL IVP ONE (14:33)
[2017-11-18] MEDS ORDERED: Dexamethasone 4 MG/ML VIAL ONE (14:33)
[2017-11-18] MEDS ORDERED: Ondansetron 4 MG/2 ML VIAL ONE (14:33)
--- NOTE | 2017-11-18 14:57 | Anesthesia Evaluation PreOp ---
Date of Encounter: 11/18/17 Time of Encounter: 14:54 - Past History Planned Operation: EGD Cardiac History: HTN, Arrhythmia Pulmonary History: COPD, Other (LUNG MASS) VIBRATORY PILE DRIVER History: Other (DEMENTIA) Other Medical History: GERD, Other (? ESOPHAGEAL MASS,) Anesthesia History: No Prior Anesthetic Complications, Past Anesthesia Alcohol Use: none Drug use: none Medications and Allergies Citalopram [CeleXA] 20 mg PO QAM 09/14/15 [History] Esomeprazole Magnesium [Nexium] 40 mg PO QPM 09/14/15 [History] Metoprolol XL (24 HR) Succ [Toprol Xl] 50 mg PO QAM 09/14/15 [History] Simvastatin [Zocor] 20 mg PO QPM 09/14/15 [History] Albuterol Sulfate [Proair Hfa] 2 puff IH Q4-6H PRN 09/17/15 [History] Budesonide/Formoterol 160/4.5 [Symbicort 160/4.5] 2 puff IH BIDR 09/17/15 [ History] Albuterol Neb [Proventil Neb] 2.5 mg IH TID 01/29/16 [History] Donepezil [Aricept] 10 mg PO HS 04/06/16 [History] Fluticasone Propionate Nasal [Flonase] 1 spray NS DAILY PRN 04/06/16 [History] Losartan/HCTZ [Hyzaar 50-12.5 Tablet] 1 tab PO QPM #0 04/07/16 [Rx] Cyanocobalamin (B-12) [Vitamin B12] 1,000 mcg PO DAILY #30 tablet 08/17/16 [Rx] Magnesium Oxide [Mag-Ox] 400 mg PO DAILY #30 tablet 08/17/16 [Rx] HYDROcodone/Acet 5/325 mg [Jarratt 5-325 mg] 0.5 - 1 tab PO BID PRN 11/15/17 [ History] 3 Allergy/AdvReac Type Severity Reaction Status Date / Time No Known Allergies Allergy Verified 11/15/17 13:15 - Meds/Allergy Pre-op Review Medications Reviewed: Yes Allergies Reviewed: Yes Beta Blockers on Current Med List: Yes (ON HOLD) Anesthesia Results - Labs 11/18/17 05:55 11/18/17 05:55 Anesthesia Exam O2 Sat Weight 40.4 kg Vital Signs/O2 Sat, Most Current Temp Pulse Resp BP Pulse Ox 98.4 F 70 18 131/69 97 11/18/17 14:36 11/18/17 14:36 11/18/17 14:36 11/18/17 14:36 11/18/17 14:36 NPO (# of Hours): 8 - HEENT Mallampati: II Teeth: Edentulous Oral Opening: Greater than 3 - Cardiac Rhythm: Regular - Pulmonary Breath Sounds: bilateral Rhonchi Anesthesia Assess/Plan ASA Score: 4 Modified Renea Scale for Level of Consciousness: Cooperative, oriented, and tranquil Anesthetic Plan: MAC Monitoring Plan: Standard Monitors Recovery Plan: PACU Anes Supervising Prov Stmt: Risks, benefits, and alternatives discussed with the patient's son.
--- NOTE | 2017-11-18 15:51 | Internal Med Progress Note ---
Date of Encounter: 11/18/17 Time of Encounter: 11:45 - Assessment and plan (1) Aspiration pneumonitis Current Visit: Yes Status: Acute Assessment and plan: cont empirical abx Zosyn (2) Mass of left lung Current Visit: Yes Status: Acute Assessment and plan: CT of Chest showing Left upper lobe mass, few consolidations in Rt lower lobe with necrotizing process s/p Bronch Path report pending cont empirical abx cont Steroids cont Duoneb Pulm on board (3) Esophageal stricture Current Visit: Yes Status: Acute Assessment and plan: Reviewed CT of Abd / Chest Showed esophageal stricture - need to exclude malignancy Schedule for EGD cont NPO IV hydration (4) COPD (chronic obstructive pulmonary disease) with emphysema Current Visit: Yes Status: Chronic Assessment and plan: improving start tapering steroids cont duoneb and O2 Qualifiers: Emphysema type: panlobular Qualified Code(s): J43.1 - Panlobular emphysema (5) Hypertension Current Visit: No Status: Chronic Assessment and plan: resumed home meds Qualifiers: Hypertension type: essential hypertension Qualified Code(s): I10 - Essential (primary) hypertension (6) Dementia Current Visit: No Status: Chronic Qualifiers: Dementia type: unspecified type Dementia behavioral disturbance: without behavioral disturbance Qualified Code(s): F03.90 - Unspecified dementia without behavioral disturbance (7) Protein-calorie malnutrition, severe Current Visit: No Status: Acute Assessment and plan: Prealbumin - 10.9 Catering Associate consulted Once GI clears her will start her on Ensure (8) Kidney mass Current Visit: Yes Status: Acute Assessment and plan: Reviewed MRI of Abd - looks roberta like cystic lesion in Rt Kidney (9) Cachexia Current Visit: Yes Status: Acute Assessment and plan: Once esophageal pathology is addressed, we will consider advancing diet and supplementation. (10) Atrial fibrillation Current Visit: Yes Status: Chronic Qualifiers: Atrial fibrillation type: unspecified Qualified Code(s): I48.91 - Unspecified atrial fibrillation (11) Hyperlipidemia Current Visit: Yes Status: Chronic Qualifiers: Hyperlipidemia type: unspecified Qualified Code(s): E78.5 - Hyperlipidemia , unspecified (12) Advance directive infomation pending assessment Current Visit: Yes Status: Acute - Time Spent With Patient Total time spent is greater than 50% in coordination of care (as documented) at patient's floor/unit and/or counseling patient: - Subjective Interval history: Ms. Iqbal is a 82 year old female who has COPD, hypertension, cachectic presenting emergency room for shortness of breath for 1 week.CAT of abdomen showed RLL Pneumonia. Pt was admittd in the hospital and started her on empirical abx Zosyna and Vancomycin. Pt is alert, awake and O x 3. Denied any CP. No events over night. Still d/o dysphagia and unable to swallow - Constitutional Vitals: Temp Pulse Resp BP Pulse Ox 98.4 F 70 18 131/69 97 11/18/17 14:36 11/18/17 14:36 11/18/17 14:36 11/18/17 14:36 11/18/17 14:36 General appearance: Present: cachectic, A&O X 3, answers questions appropriately - Head Head exam: Present: atraumatic, normal inspection - Neck Neck exam general surgery: Present: supple - Respiratory Respiratory exam: Present: decreased breath sounds, rhonchi, wheezes (mild). Absent: rales, respiratory distress - Cardiovascular Cardiovascular exam: Present: RRR, +S1, +S2. Absent: tachycardia - GI/Abdominal GI/Abdominal exam: Present: normal bowel sounds, soft. Absent: rebound, rigid, tenderness - Extremities Exam Extremities exam: Absent: calf tenderness, pedal edema, tenderness - Back Exam Back exam: Absent: CVA tenderness (L), CVA tenderness (R) - Psychiatric Psychiatric exam: Present: normal affect, normal mood Internal Medicine: Result - Labs CBC & Chem 7: 11/18/17 05:55 11/18/17 05:55 Labs: Short CBC 11/18/17 Range/Units 05:55 WBC 6.5 (4.3-11.1) K/mcL Hgb 11.2 L (11.5-15.4) g/dL Hct 34.9 L (35.3-44.9) % Plt Count 203 (140-400) K/mcL Neutrophils # 5.5 (1.6-8.9) K/mcL BMP 11/18/17 05:55 Sodium 136 Potassium 3.4 L Chloride 105 Carbon Dioxide 25 BUN 7 L Creatinine 0.51 L Glucose 161 H Calcium 8.7 - ABG Interpretation ABG results: PT/INR, D-dimer PT 12.4 Seconds (9.4-12.1) H 11/18/17 05:55 Consult Discharge Plan - Plan Referrals: Slime Laguna, KERRI [Primary Care Provider] -
[2017-11-18] MEDS ORDERED: D5% in 0.45% NACL 1,000 ML IVC SCH (17:49)
[2017-11-18] MEDS: Losartan/HCTZ 50-12.5 TABLET PO SCH (18:23)
[2017-11-19 04:02] LABS: INR 1.2
[2017-11-19] MEDS: MethylPREDNISolone 40 MG/ML VIAL IVP SCH (05:12)
[2017-11-19] MEDS: Albuterol 2.5 MG/3 ML NEBULIZER IH SCH ×3 (07:32→22:26)
[2017-11-19] MEDS: Budesonide/Formoterol 160/4.5 MDI IH SCH ×2 (07:33→22:26)
[2017-11-19] MEDS: Piperacillin/Tazobactam 3.375 GM in 0.9 % Sodium Chloride Mini Bag 100 ML IVPB SCH (08:24)
[2017-11-19] MEDS: *HR* Heparin 5,000 UNIT/ML VIAL SQ SCH ×3 (08:24→22:52)
[2017-11-19] MEDS: Magnesium Oxide 400 MG TABLET PO SCH (08:26)
[2017-11-19] MEDS: Metoprolol XL (24 HR) Succ 50 MG TAB.ER.24H PO SCH (08:26)
[2017-11-19] MEDS: Cyanocobalamin (B-12) 1,000 MCG TABLET PO SCH (08:26)
--- NOTE | 2017-11-19 08:37 | Pulmonology Progress Note ---
<Damion Hoskins - Last Filed: 11/19/17 11:04> Date of Encounter: 11/19/17 Time of Encounter: 08:35 Assessment and Plan (1) Mass of left lung Current Visit: Yes Status: Acute CT 11/15: 3.5 cm medial left upper lobe mass as well as right lower lobe consolidation with multifocal upper and middle lobe opacities suggestive of chronic aspiration. S/P Bronchoscopy: Brainstem mucous plugging, friable mucosa, Cytobrush and BAL RML, BAL JOANNA for microbiology and cytology . Continue vancomycin and Zosyn with de-escalation once BAL has resulted. (2) Pneumonia Current Visit: Yes Status: Acute CT demonstrates right lower lobe consolidation as well as multifocal changes in the upper and mid lobe. Given findings, concern for chronic aspiration pneumonitis. Patient had bronchoscopy with BAL. Continue broad-spectrum antibiotic coverage with de-escalation once cultures and sensitivities resulted. Qualifiers: Pneumonia type: due to unspecified organism Laterality: right Lung location: unspecified part of lung Qualified Code(s): J18.9 - Pneumonia, unspecified organism (3) Suspected chronic obstructive pulmonary disease based on initial evaluation Current Visit: Yes Status: Acute Continue bronchodilators. Continue Solu-Medrol (4) Protein-calorie malnutrition, severe Current Visit: No Status: Acute BMI 16.2. Nutrition consult. Anticipate likely NG or Dobbhoff for enteral nutrition. Subjective Principal diagnosis: Right sided pneumonia with JOANNA mass Interval history: No acute events overnight. EGD performed yesterday demonstrating a food bolus in the lower esophagus. Objective PUL Vital signs: Last Vital Signs Temp 97.6 F 11/19/17 07:40 Pulse 73 11/19/17 07:40 Resp 22 11/19/17 07:40 BP 132/90 11/19/17 07:40 Pulse Ox 95 11/19/17 07:40 General appearance: no acute distress Eyes: nonicteric ENT: oropharynx dry Effort: normal Auscultation: bilateral: diminished breath sounds Cardiovascular: regular rate and rhythm Gastrointestinal: soft, non-tender, non-distended Integumentary: normal Extremities: no cyanosis, no edema Musculoskeletal: no deformities other (Opens eyes spontaneously. Nonfocal.) Results - Laboratory Findings CBC and BMP: 11/18/17 05:55 11/18/17 05:55 PT/INR, D-dimer PT 13.0 Seconds (9.4-12.1) H 11/19/17 03:13 Abnormal lab findings: Abnormal lab results RBC 3.42 M/mcL (3.82-4.97) L 11/18/17 05:55 Hgb 11.2 g/dL (11.5-15.4) L 11/18/17 05:55 Hct 34.9 % (35.3-44.9) L 11/18/17 05:55 MCV 102.0 fL (83.0-100.0) H 11/18/17 05:55 PT 13.0 Seconds (9.4-12.1) H 11/19/17 03:13 Potassium 3.4 mEq/L (3.5-5.1) L 11/18/17 05:55 BUN 7 mg/dL (8-23) L 11/18/17 05:55 Creatinine 0.51 mg/dL (0.60-1.20) L 11/18/17 05:55 Glucose 161 mg/dL (70-105) H 11/18/17 05:55 POC Glucose 139 mg/dL (70-99) H 11/18/17 22:52 Direct Bilirubin 0.3 mg/dL (0.0-0.2) H 11/15/17 11:22 B-Natriuretic Peptide 105 pg/mL (Less than 100) H 11/16/17 03:04 Albumin 2.7 g/dL (3.5-5.7) L 11/15/17 11:22 Globulin 4.0 g/dL (2.4-3.5) H 11/15/17 11:22 Albumin/Globulin Ratio 0.7 (1.1-2.2) L 11/15/17 11:22 Prealbumin 10.9 mg/dL (17.0-34.0) L 11/18/17 05:55 Fluid Appearance Cloudy (Clear) A 11/17/17 12:08 - Microbiology Findings Microbiology Findings: Microbiology, Last 48 Hours 11/17/17 12:08 Acid Fast Stain - Final Left Upper Lobe Lung 11/17/17 12:08 Acid Fast Stain - Final Right Middle Lobe Lung 11/17/17 12:08 Respiratory Culture - Preliminary Right Middle Lobe Lung Normal upper respiratory tract katie. No apparent pathogens isolated. 11/17/17 12:08 Respiratory Culture - Preliminary Left Upper Lobe Lung No growth. 11/17/17 12:08 Gram Stain - Final Left Upper Lobe Lung 11/17/17 12:08 Gram Stain - Final Right Middle Lobe Lung 11/16/17 23:17 Respiratory Culture - Preliminary Other-Specify in Comments Gram Positive Rods - Clinical Findings Intake & Output: Intake & Output 11/18/17 11/19/17 11/19/17 23:59 07:59 15:59 Intake Total 350 / 350 100 / 100 Balance 350 / 350 100 / 100 Weight 38.8 kg Consult Discharge Plan - Plan Referrals: Slime Laguna, BRAZE OPERATOR [Primary Care Provider] - <Valentino eBrman - Last Filed: 11/19/17 22:07> Date of Encounter: 11/19/17 Assessment and Plan (1) Mass of left lung Current Visit: Yes Status: Acute (2) Pneumonia Current Visit: Yes Status: Acute Qualifiers: Pneumonia type: due to unspecified organism Laterality: right Lung location: unspecified part of lung Qualified Code(s): J18.9 - Pneumonia, unspecified organism (3) Protein-calorie malnutrition, severe Current Visit: No Status: Acute (4) Suspected chronic obstructive pulmonary disease based on initial evaluation Current Visit: Yes Status: Acute Objective PUL Vital signs: Last Vital Signs Temp 97.7 F 11/19/17 18:44 Pulse 104 11/19/17 18:44 Resp 18 11/19/17 18:44 BP 102/65 11/19/17 18:44 Pulse Ox 92 11/19/17 18:44 Results - Laboratory Findings CBC and BMP: 11/18/17 05:55 11/18/17 05:55 PT/INR, D-dimer PT 13.0 Seconds (9.4-12.1) H 11/19/17 03:13 Abnormal lab findings: Abnormal lab results RBC 3.42 M/mcL (3.82-4.97) L 11/18/17 05:55 Hgb 11.2 g/dL (11.5-15.4) L 11/18/17 05:55 Hct 34.9 % (35.3-44.9) L 11/18/17 05:55 MCV 102.0 fL (83.0-100.0) H 11/18/17 05:55 PT 13.0 Seconds (9.4-12.1) H 11/19/17 03:13 Potassium 3.4 mEq/L (3.5-5.1) L 11/18/17 05:55 BUN 7 mg/dL (8-23) L 11/18/17 05:55 Creatinine 0.51 mg/dL (0.60-1.20) L 11/18/17 05:55 Glucose 161 mg/dL (70-105) H 11/18/17 05:55 POC Glucose 151 mg/dL (70-99) H 11/19/17 11:06 Direct Bilirubin 0.3 mg/dL (0.0-0.2) H 11/15/17 11:22 B-Natriuretic Peptide 105 pg/mL (Less than 100) H 11/16/17 03:04 Albumin 2.7 g/dL (3.5-5.7) L 11/15/17 11:22 Globulin 4.0 g/dL (2.4-3.5) H 11/15/17 11:22 Albumin/Globulin Ratio 0.7 (1.1-2.2) L 11/15/17 11:22 Prealbumin 10.9 mg/dL (17.0-34.0) L 11/18/17 05:55 Fluid Appearance Cloudy (Clear) A 11/17/17 12:08 - Microbiology Findings Microbiology Findings: Microbiology, Last 48 Hours 11/17/17 12:08 Respiratory Culture - Final Right Middle Lobe Lung Normal upper respiratory tract katie. No apparent pathogens isolated. 11/17/17 12:08 Respiratory Culture - Final Left Upper Lobe Lung Normal upper respiratory tract katie. No apparent pathogens isolated. 11/17/17 12:08 Acid Fast Stain - Final Left Upper Lobe Lung 11/17/17 12:08 Acid Fast Stain - Final Right Middle Lobe Lung 11/17/17 12:08 Gram Stain - Final Left Upper Lobe Lung 11/17/17 12:08 Gram Stain - Final Right Middle Lobe Lung 11/16/17 23:17 Respiratory Culture - Preliminary Other-Specify in Comments Gram Positive Rods - Clinical Findings Intake & Output: Intake & Output 11/19/17 11/19/17 11/19/17 07:59 15:59 23:59 Intake Total 100 / 100 Balance 100 / 100 Weight 39.5 kg - Attending Attestation I saw and evaluated this patient and my medical decision-making was reviewed with the Resident Physician. I agree with the documented findings, disposition and treatment plan as described except to the extent set forth below. We independently had [id number] contact with the patient Patient seen and examined at bedside Labs, radiology, chart personally reviewed. Management was reviewed during multidisciplinary critical care rounds. GENERAL FARMWORKER:Patient is conscious oriented x 3 no acute issues Pulm: Patient hypoxic respiratory secondary to RLL consolidation and COPD exacerbation , patient has JOANNA mass which is very medial near ascending aorta not amenable for biopsy she had a bronchoscopy cytobrush of RML shows in prelim read as suspicious atypical cells more likely for malignancy Cards: Hemodynamically stable FEN-GI: EGD showed some constriction in the esophagus OG or G tube cannot be placed. Patient's son wanted to take her home with home hospice Renal:Labs reviewed ID:On Vancomycin becuase of gram positive rods in BAL Heme/Onc:Labs reviewed Endo: Glucose Monitored Integ/MSK: Skin Care per routine ICU Nursing Protocol to prevent ulcers. Lines: All lines examined without evidence of infection : Dispo: Transfer back to CODE:Son according to her wishes changed her code status to DNRA -DNI
[2017-11-19] MEDS ORDERED: *HR* Metoprolol 5 MG/5 ML VIAL IVP SCH ×2 (12:00→18:00)
--- NOTE | 2017-11-19 13:13 | Palliative Progress Note ---
Date of Encounter: 11/19/17 Time of Encounter: 13:00 - Assessment and plan (1) Abdominal pain Current Visit: Yes Status: Acute Assessment and plan: Continue SL Oxycodone PRN. Has not utilized. (2) Dyspnea Current Visit: Yes Status: Acute Qualifiers: Dyspnea type: unspecified Qualified Code(s): R06.00 - Dyspnea, unspecified (3) Nausea & vomiting Current Visit: Yes Status: Acute Assessment and plan: Previous vomiting most likely r/t food bolus in esophagus which was removed during EGD yesterday. Denies nausea today, continue Antiemetics PRN. Qualifiers: Vomiting type: unspecified Vomiting Intractability: unspecified Qualified Code(s): R11.2 - Nausea with vomiting, unspecified (4) Cachexia Current Visit: Yes Status: Acute (5) Counseling regarding advanced care planning and goals of care Current Visit: Yes Status: Acute Assessment and plan: Spoke with son, Armin HERCULES at length regarding clinical status and goals of care. Discussed that Dr. Berman spoke with pathologist and cytology preliminary suspicious for malignancy. Discussed feeding tube - and Armin has decided he does not want mother put through any further aggressive measures. Transitioned to DNR/DNI and he is interested in taking her home with hospice care possibly tomorrow afternoon. Meeting with him tomorrow at 1000 to finalize arrangements. Armin just desires to give her liquids for comfort - understanding that she is high risk for further aspiration. D/W Dr. Dewitt. (6) Mass of left lung Current Visit: Yes Status: Acute (7) COPD (chronic obstructive pulmonary disease) with emphysema Current Visit: Yes Status: Chronic Qualifiers: Emphysema type: panlobular Qualified Code(s): J43.1 - Panlobular emphysema - Time Spent With Patient Total time spent is greater than 50% in coordination of care (as documented) at patient's floor/unit and/or counseling patient: - Subjective Interval history: Patient awake and alert, states she is hungry. Appears in no distress. + BM yesterday. EGD report reviewed - food bolus removed yesterday. Spoke with Dr. Berman - preliminary cytology results suspicious for malignancy. No family present. - Constitutional Vitals: Abnormal lab results RBC 3.42 M/mcL (3.82-4.97) L 11/18/17 05:55 Hgb 11.2 g/dL (11.5-15.4) L 11/18/17 05:55 Hct 34.9 % (35.3-44.9) L 11/18/17 05:55 MCV 102.0 fL (83.0-100.0) H 11/18/17 05:55 PT 13.0 Seconds (9.4-12.1) H 11/19/17 03:13 Potassium 3.4 mEq/L (3.5-5.1) L 11/18/17 05:55 BUN 7 mg/dL (8-23) L 11/18/17 05:55 Creatinine 0.51 mg/dL (0.60-1.20) L 11/18/17 05:55 Glucose 161 mg/dL (70-105) H 11/18/17 05:55 POC Glucose 151 mg/dL (70-99) H 11/19/17 11:06 Direct Bilirubin 0.3 mg/dL (0.0-0.2) H 11/15/17 11:22 B-Natriuretic Peptide 105 pg/mL (Less than 100) H 11/16/17 03:04 Albumin 2.7 g/dL (3.5-5.7) L 11/15/17 11:22 Globulin 4.0 g/dL (2.4-3.5) H 11/15/17 11:22 Albumin/Globulin Ratio 0.7 (1.1-2.2) L 11/15/17 11:22 Prealbumin 10.9 mg/dL (17.0-34.0) L 11/18/17 05:55 Fluid Appearance Cloudy (Clear) A 11/17/17 12:08 General appearance: Present: no acute distress - Respiratory Respiratory exam: Present: decreased breath sounds, CTAB Additional comments: Occasional rhonchi noted. - Cardiovascular Cardiovascular exam: Present: irregular rhythm - GI/Abdominal GI/Abdominal exam: Present: normal bowel sounds, soft - Extremities Exam Extremities exam: Present: normal capillary refill, normal inspection - Neurological Exam Neurological exam: Present: alert, strengths equal and symetr throughout Additional comments: Oriented to name and place. Needs reoriented to time and situation. - Skin Skin exam: Present: dry, pallor, warm Palliative Quality Palliative Quality: Screen for Code Status: NA (AWaiting son for discussion), Screen for Goals of Care: NA, Screen for Pain: Yes, If Pain Regimen Started, Initiate Bowel Regimen: Yes, Screen for Nausea/Vomitting: Yes Code Status: 11/19/17 13:00 DNR [Resuscitation Status: Active] [RES] Routine Comment: Resuscitation Status: [id number] - Labs CBC & Chem 7: 11/18/17 05:55 11/18/17 05:55 Labs: Laboratory Results - last 24 hr 11/17/17 11/18/17 11/18/17 23:36 05:09 11:48 PT INR POC Glucose 171 H 157 H 145 H Vancomycin Trough 11/18/17 11/18/17 11/18/17 17:11 19:26 22:52 PT INR POC Glucose 105 H 139 H Vancomycin Trough 7 11/19/17 11/19/17 11/19/17 03:13 06:17 11:06 PT 13.0 H INR 1.2 POC Glucose 126 H 151 H Vancomycin Trough - Impressions Impressions Chest X-Ray 11/18/17 16:13 IMPRESSION: Right lower lobe pneumonia again noted with minimal change. Subtle left medial upper lobe mass also again noted, better seen at recent CT 11/15/2017. D/ / Mateo Casas MD / Mateo Casas MD Interpreting Provider: Mateo Casas MD - ABG Interpretation ABG results: PT/INR, D-dimer PT 13.0 Seconds (9.4-12.1) H 11/19/17 03:13 Consult Discharge Plan - Plan Referrals: Slime Laguna, ELECTRONIC GLUER [Primary Care Provider] -
[2017-11-19] MEDS ORDERED: Aminoglycoside Consult 1 EACH MC ONE (14:06)
[2017-11-19] MEDS ORDERED: Ondansetron 4 MG/2 ML VIAL IVP PRN (14:52)
[2017-11-19] MEDS ORDERED: Gadolinium Contrast Agent (WT Based) IV PRN (14:52)
[2017-11-19] MEDS ORDERED: D5% in 0.45% NACL 1,000 ML IVC SCH (14:52)
[2017-11-19] MEDS ORDERED: Fluticasone Propionate Nasal 50 MCG/SPRAY BOTTLE NS PRN (14:52)
[2017-11-19] MEDS ORDERED: OXYCODONE Oral CONC 10 MG/0.5 ML ORAL.SYG SL PRN (14:52)
[2017-11-19] MEDS ORDERED: Naloxone 0.4 MG/ML INJ IVP PRN (14:52)
[2017-11-19] MEDS ORDERED: Albuterol 2.5 MG/3 ML NEBULIZER ONE (15:18)
[2017-11-19] MEDS ORDERED: Piperacillin/Tazobactam 3.375 GM in 0.9 % Sodium Chloride Mini Bag 100 ML IVPB SCH (16:00)
--- NOTE | 2017-11-19 17:27 | Internal Med Progress Note ---
Date of Encounter: 11/19/17 Time of Encounter: 13:00 - Assessment and plan (1) Aspiration pneumonitis Current Visit: Yes Status: Acute Assessment and plan: cont empirical abx Zosyn (2) Mass of left lung Current Visit: Yes Status: Acute Assessment and plan: CT of Chest showing Left upper lobe mass, few consolidations in Rt lower lobe with necrotizing process s/p Bronch Path report pending However Dr. Berman did review slides with pathologist, and they consistent with malignancy he did talk to pt's son at bed side Pt's son do not wanted to proceed with any more aggressive care he would like to take her home with home hospice care cont empirical abx switched to PO steroids cont Duoneb (3) Esophageal stricture Current Visit: Yes Status: Acute Assessment and plan: s/p EGD showed large food bolus in the distal esophagus - which got removed GI recommend NPO and J tube placement for tube feedings however pt and her son do not want to proceed with any invasive procedure would like to go home under hospice care will start her on clear liquid diet (4) COPD (chronic obstructive pulmonary disease) with emphysema Current Visit: Yes Status: Chronic Assessment and plan: improving start tapering steroids cont duoneb and O2 Qualifiers: Emphysema type: panlobular Qualified Code(s): J43.1 - Panlobular emphysema (5) Hypertension Current Visit: No Status: Chronic Assessment and plan: resumed home meds Qualifiers: Hypertension type: essential hypertension Qualified Code(s): I10 - Essential (primary) hypertension (6) Dementia Current Visit: No Status: Chronic Qualifiers: Dementia type: unspecified type Dementia behavioral disturbance: without behavioral disturbance Qualified Code(s): F03.90 - Unspecified dementia without behavioral disturbance (7) Protein-calorie malnutrition, severe Current Visit: No Status: Acute Assessment and plan: Prealbumin - 10.9 (8) Kidney mass Current Visit: Yes Status: Acute Assessment and plan: Reviewed MRI of Abd - looks roberta like cystic lesion in Rt Kidney (9) Cachexia Current Visit: Yes Status: Acute (10) Atrial fibrillation Current Visit: Yes Status: Chronic Qualifiers: Atrial fibrillation type: unspecified Qualified Code(s): I48.91 - Unspecified atrial fibrillation (11) Hyperlipidemia Current Visit: Yes Status: Chronic Qualifiers: Hyperlipidemia type: unspecified Qualified Code(s): E78.5 - Hyperlipidemia , unspecified (12) Advance directive infomation pending assessment Current Visit: Yes Status: Acute Assessment and plan: Son requested for DNR [facility] Home hospice - Time Spent With Patient Total time spent is greater than 50% in coordination of care (as documented) at patient's floor/unit and/or counseling patient: - Subjective Interval history: Ms. Iqbal is a 82 year old female who has COPD, hypertension, cachectic presenting emergency room for shortness of breath for 1 week.CAT of abdomen showed RLL Pneumonia. Pt was admittd in the hospital and started her on empirical abx Zosyna and Vancomycin. Pt is alert, awake and O x 3. Denied any CP. No events over night. She had EGD done y/d which showed large amount of meat / food in the distal esophagus. - Constitutional Vitals: Temp Pulse Resp BP Pulse Ox 97.6 F 76 20 139/83 95 11/19/17 07:40 11/19/17 12:00 11/19/17 15:26 11/19/17 12:00 11/19/17 15:26 General appearance: Present: cachectic, A&O X 3, answers questions appropriately - Head Head exam: Present: atraumatic, normal inspection - Neck Neck exam general surgery: Present: supple - Respiratory Respiratory exam: Present: decreased breath sounds. Absent: rales, respiratory distress, rhonchi, wheezes - Cardiovascular Cardiovascular exam: Present: RRR, +S1, +S2. Absent: tachycardia - GI/Abdominal GI/Abdominal exam: Present: normal bowel sounds, soft. Absent: rebound, rigid, tenderness - Extremities Exam Extremities exam: Absent: calf tenderness, pedal edema, tenderness - Back Exam Back exam: Absent: CVA tenderness (L), CVA tenderness (R) - Neurological Exam Neurological exam: Present: alert, oriented X3 - Psychiatric Psychiatric exam: Present: depressed Internal Medicine: Result - Labs CBC & Chem 7: 11/18/17 05:55 11/18/17 05:55 - ABG Interpretation ABG results: PT/INR, D-dimer PT 13.0 Seconds (9.4-12.1) H 11/19/17 03:13 Consult Discharge Plan - Plan Referrals: Slime Laguna, GENERAL FOUNDRY WORKER [Primary Care Provider] -
[2017-11-19] MEDS ORDERED: MethylPREDNISolone 40 MG/ML VIAL IVP SCH (18:00)
[2017-11-19] MEDS ORDERED: Losartan/HCTZ 50-12.5 TABLET PO SCH (18:00)
[2017-11-20 04:40] VITALS: BP 115/66
[2017-11-20] MEDS: *HR* Heparin 5,000 UNIT/ML VIAL SQ SCH (05:59)
[2017-11-20 06:18] LABS: INR 1.2
[2017-11-20] MEDS: Budesonide/Formoterol 160/4.5 MDI IH SCH (07:22)
[2017-11-20] MEDS: Albuterol 2.5 MG/3 ML NEBULIZER IH SCH (07:22)
[2017-11-20] MEDS ORDERED: Magnesium Oxide 400 MG TABLET PO SCH (09:00)
[2017-11-20] MEDS ORDERED: Cyanocobalamin (B-12) 1,000 MCG TABLET PO SCH (09:00)
[2017-11-20] MEDS ORDERED: Metoprolol XL (24 HR) Succ 50 MG TAB.ER.24H PO SCH (09:00)
--- NOTE | 2017-11-20 10:35 | Discharge Summary ---
- NOTES TO OUTPATIENT PROVIDER Notes to Outpatient Provider: f/u with [facility] hosp[facility] care Orders not resulted at time of discharge: Pending orders 11/16/17 23:17 Culture,Respiratory [RM] Routine 11/17/17 12:08 AFB Culture, Respiratory [TB] Routine AFB Culture, Respiratory [TB] Routine AFB Smear [TB] Routine AFB Smear [TB] Routine Fungal Culture [MYC] Routine Fungal Culture [MYC] Routine Legionella Culture [RM] Routine Legionella Culture [RM] Routine 11/21/17 04:00 PT/INR [Prothrombin Time INR] [COAG] AM 0400 Date of Encounter: 11/20/17 Time of Encounter: 10:30 - Discharge Diagnosis (1) Aspiration pneumonitis Priority: Primary Status: Acute (2) Mass of left lung Priority: Primary Status: Acute (3) Esophageal stricture Priority: Primary Status: Acute (4) COPD (chronic obstructive pulmonary disease) with emphysema Priority: Secondary Status: Chronic Qualifiers: Emphysema type: panlobular Qualified Code(s): J43.1 - Panlobular emphysema (5) Hypertension Priority: Secondary Status: Chronic Qualifiers: Hypertension type: essential hypertension Qualified Code(s): I10 - Essential (primary) hypertension (6) Dementia Priority: Secondary Status: Chronic Qualifiers: Dementia type: unspecified type Dementia behavioral disturbance: without behavioral disturbance Qualified Code(s): F03.90 - Unspecified dementia without behavioral disturbance (7) Protein-calorie malnutrition, severe Priority: Secondary Status: Acute (8) Kidney mass Priority: Secondary Status: Acute (9) Cachexia Priority: Secondary Status: Acute (10) Atrial fibrillation Priority: Secondary Status: Chronic Qualifiers: Atrial fibrillation type: unspecified Qualified Code(s): I48.91 - Unspecified atrial fibrillation (11) Hyperlipidemia Priority: Secondary Status: Chronic Qualifiers: Hyperlipidemia type: unspecified Qualified Code(s): E78.5 - Hyperlipidemia , unspecified (12) Advance directive infomation pending assessment Priority: Secondary Status: Acute Hospital course: Ms. Iqbal is a 82 year old female who has COPD, hypertension, cachectic presenting emergency room for shortness of breath for 1 week.CAT of abdomen showed RLL Pneumonia. Pt was admittd in the hospital and started her on empirical abx Zosyna and Vancomycin. Pt was hypoxic initially required 2 lit O2. She did go for bronchoscopy. Her path results reviewed by continuous still operator with pathologist and concerned for malignancy. She does have severe dysphasia too, for which she had EGD showed large food bolus in the distal esophagus - which got removed. GI recommend NPO and J tube placement for tube feedings . However pt and her son do not wanted to proceed with any invasive procedure and would like to go home under hospice care. So will d/c her home today under hospice care. Also will give her 2 more PO augmentin liquid. - Time Spent with Patient Total time spent providing and/or coordinating discharge services: - Discharge Medications Prescriptions: LORazepam Oral Conc [Ativan Oral Conc] 0.5 mg PO Q4H PRN 4 Days #15 mls PRN Reason: Anxiety MORPHINE SUL Oral CONC [Roxanol Oral Conc] 2.5 - 5 mg PO Q4H PRN 4 Days #15 oral.syg PRN Reason: pain/dyspnea Home Medications: Citalopram [CeleXA] 20 mg PO QAM 09/14/15 [History] Esomeprazole Magnesium [Nexium] 40 mg PO QPM 09/14/15 [History] Metoprolol XL (24 HR) Succ [Toprol Xl] 50 mg PO QAM 09/14/15 [History] Albuterol Sulfate [Proair Hfa] 2 puff IH Q4-6H PRN 09/17/15 [History] Budesonide/Formoterol 160/4.5 [Symbicort 160/4.5] 2 puff IH BIDR 09/17/15 [ History] Albuterol Neb [Proventil Neb] 2.5 mg IH TID 01/29/16 [History] Donepezil [Aricept] 10 mg PO HS 04/06/16 [History] Fluticasone Propionate Nasal [Flonase] 1 spray NS DAILY PRN 04/06/16 [History] Amoxicillin/Clavulanate [AUGMENTIN Susp] 5 ml PO Q8HR 3 Days #45 mls 11/20/17 [ Rx] LORazepam Oral Conc [Ativan Oral Conc] 0.5 mg PO Q4H PRN 4 Days #15 mls [Rx] MORPHINE SUL Oral CONC [Roxanol Oral Conc] 2.5 - 5 mg PO Q4H PRN 4 Days #15 oral.syg 11/20/17 [Rx] Allergies/Adverse Reactions: 3 Allergy/AdvReac Type Severity Reaction Status Date / Time No Known Allergies Allergy Verified 11/15/17 13:15 Date of admission: 11/15/17 14:06 Primary care physician: Slime Laguna CNP Consults: 11/15/17 15:47 Consult to Nutrition [CONS] Routine Comment: Consulting Provider: NUTRITION Reason for Dietary Consult: MST Score Consult to Archival Studies Professor [CONS] Routine Reason for SW Consult: possible need for home health 11/16/17 08:58 Consult to Gastroenterology [CONS] Routine Consulting Provider: [facility] [place] Reason for Consult: Suspect esophageal cancer Call Completed: No Consult to Palliative Care [CONS] Routine Comment: Consulting Provider: [facility] [place] Reason for Consult: Goals of care discussion Call Completed: No Consult to Pulmonology [CONS] Routine Consulting Provider: [facility] [place] Reason for Consult: Left upper lobe mass with right lower lobe consolidation , lymphadenopathy. Suspicious for cancer. Call Completed: Yes - Constitutional Vitals: Temp Pulse Resp BP Pulse Ox 97.7 F 78 18 115/66 91 11/20/17 04:34 11/20/17 04:34 11/20/17 07:24 11/20/17 04:34 11/20/17 07:24 General appearance: Present: cachectic, A&O X 3, answers questions appropriately - Head Head exam: Present: atraumatic, normal inspection - Neck Neck exam general surgery: Present: supple - Respiratory Respiratory exam: Present: decreased breath sounds. Absent: rales, respiratory distress, rhonchi, wheezes - Cardiovascular Cardiovascular exam: Present: +S1, +S2. Absent: tachycardia - GI/Abdominal GI/Abdominal exam: Present: normal bowel sounds, soft. Absent: rebound, rigid - Back Exam Back exam: Absent: CVA tenderness (L), CVA tenderness (R) - Neurological Exam Neurological exam: Present: alert, oriented X3 - Psychiatric Psychiatric exam: Present: normal affect, normal mood - Patient Status Disposition: Hospice - Home Condition: Fair Overall status at discharge: patient is progressing back to baseline - Discharge Instructions Follow Up With: Slime Laguna CNP [Primary Care Provider] - - Diet and Activity Activity: increase activity as tolerated, wear oxygen at night Diet: other (liquid diet only)
--- NOTE | 2017-11-20 10:39 | Physician Discharge Referral ---
Home Health/Hosp Referral Info Transfer to: Hospice Provider in Charge Post Discharge: PCP - Diagnosis (1) Aspiration pneumonitis Status: Acute (2) Mass of left lung Status: Acute (3) Esophageal stricture Status: Acute (4) COPD (chronic obstructive pulmonary disease) with emphysema Status: Chronic (5) Hypertension Status: Chronic (6) Dementia Status: Chronic (7) Protein-calorie malnutrition, severe Status: Acute (8) Kidney mass Status: Acute (9) Cachexia Status: Acute (10) Atrial fibrillation Status: Chronic (11) Hyperlipidemia Status: Chronic (12) Advance directive infomation pending assessment Status: Acute - Respiratory Orders Smoking Cessation: Smoking cessation has been advised. For more information, call the [employer] Quit Line at 6-877-GLAT-NOW. - Transfer Medications Prescriptions: Amoxicillin/Clavulanate [AUGMENTIN Susp] 5 ml PO Q8HR 3 Days #45 mls LORazepam Oral Conc [Ativan Oral Conc] 0.5 mg PO Q4H PRN 4 Days #15 mls PRN Reason: Anxiety MORPHINE SUL Oral CONC [Roxanol Oral Conc] 2.5 - 5 mg PO Q4H PRN 4 Days #15 oral.syg PRN Reason: pain/dyspnea Home Medications: Citalopram [CeleXA] 20 mg PO QAM 09/14/15 [History] Esomeprazole Magnesium [Nexium] 40 mg PO QPM 09/14/15 [History] Metoprolol XL (24 HR) Succ [Toprol Xl] 50 mg PO QAM 09/14/15 [History] Albuterol Sulfate [Proair Hfa] 2 puff IH Q4-6H PRN 09/17/15 [History] Budesonide/Formoterol 160/4.5 [Symbicort 160/4.5] 2 puff IH BIDR 09/17/15 [ History] Albuterol Neb [Proventil Neb] 2.5 mg IH TID 01/29/16 [History] Donepezil [Aricept] 10 mg PO HS 04/06/16 [History] Fluticasone Propionate Nasal [Flonase] 1 spray NS DAILY PRN 04/06/16 [History] Amoxicillin/Clavulanate [AUGMENTIN Susp] 5 ml PO Q8HR 3 Days #45 mls 11/20/17 [ Rx] LORazepam Oral Conc [Ativan Oral Conc] 0.5 mg PO Q4H PRN 4 Days #15 mls [Rx] MORPHINE SUL Oral CONC [Roxanol Oral Conc] 2.5 - 5 mg PO Q4H PRN 4 Days #15 oral.syg 11/20/17 [Rx] Allergies/Adverse Reactions: 3 Allergy/AdvReac Type Severity Reaction Status Date / Time No Known Allergies Allergy Verified 11/15/17 13:15 Certification: Further, I certify that my clinical findings support that this patient is homebound (i.e. absences from home require considerable and taxing effort and are for medical reasons or voodoo services or infrequently or short duration when for other reasons) because: Homebound Reason: Patient requires assistance of a person or device to safely leave home Attestation: My signature below is to certify that this patient is under my care and that I, or nurse practitioner, or a physician's teachers' assistant working with me, has a face-to -face encounter with this patient.
--- NOTE | 2017-11-20 12:27 | Palliative Progress Note ---
Date of Encounter: 11/20/17 Time of Encounter: 10:20 - Assessment and plan (1) Abdominal pain Current Visit: Yes Status: Acute Assessment and plan: Will do prescription for Roxanol for pain/dyspnea if needed at home. Will be going home with [facility]. (2) Dyspnea Current Visit: Yes Status: Acute Qualifiers: Dyspnea type: unspecified Qualified Code(s): R06.00 - Dyspnea, unspecified (3) Nausea & vomiting Current Visit: Yes Status: Acute Qualifiers: Vomiting type: unspecified Vomiting Intractability: unspecified Qualified Code(s): R11.2 - Nausea with vomiting, unspecified (4) Cachexia Current Visit: Yes Status: Acute (5) Counseling regarding advanced care planning and goals of care Current Visit: Yes Status: Acute Assessment and plan: Patient son at bedside. Desires to take her home with [facility]. [facility] will be enrolling patient here prior to discharge. D/W Dr. Dewitt. (6) Mass of left lung Current Visit: Yes Status: Acute (7) COPD (chronic obstructive pulmonary disease) with emphysema Current Visit: Yes Status: Chronic Qualifiers: Emphysema type: panlobular Qualified Code(s): J43.1 - Panlobular emphysema - Time Spent With Patient Total time spent is greater than 50% in coordination of care (as documented) at patient's floor/unit and/or counseling patient: - Subjective Interval history: Patient awake and alert, tolerating liquids and ensure. Son at bedside. She is anxious to go home. Denies pain/discomfort. - Constitutional Vitals: Abnormal lab results RBC 3.42 M/mcL (3.82-4.97) L 11/18/17 05:55 Hgb 11.2 g/dL (11.5-15.4) L 11/18/17 05:55 Hct 34.9 % (35.3-44.9) L 11/18/17 05:55 MCV 102.0 fL (83.0-100.0) H 11/18/17 05:55 PT 13.0 Seconds (9.4-12.1) H 11/20/17 05:38 Potassium 3.4 mEq/L (3.5-5.1) L 11/18/17 05:55 BUN 7 mg/dL (8-23) L 11/18/17 05:55 Creatinine 0.51 mg/dL (0.60-1.20) L 11/18/17 05:55 Glucose 161 mg/dL (70-105) H 11/18/17 05:55 POC Glucose 151 mg/dL (70-99) H 11/19/17 11:06 Direct Bilirubin 0.3 mg/dL (0.0-0.2) H 11/15/17 11:22 B-Natriuretic Peptide 105 pg/mL (Less than 100) H 11/16/17 03:04 Albumin 2.7 g/dL (3.5-5.7) L 11/15/17 11:22 Globulin 4.0 g/dL (2.4-3.5) H 11/15/17 11:22 Albumin/Globulin Ratio 0.7 (1.1-2.2) L 11/15/17 11:22 Prealbumin 10.9 mg/dL (17.0-34.0) L 11/18/17 05:55 Fluid Appearance Cloudy (Clear) A 11/17/17 12:08 General appearance: Present: no acute distress - Respiratory Respiratory exam: Present: decreased breath sounds, CTAB - Cardiovascular Cardiovascular exam: Present: irregular rhythm - GI/Abdominal GI/Abdominal exam: Present: normal bowel sounds, soft - Extremities Exam Extremities exam: Present: normal capillary refill, normal inspection - Neurological Exam Neurological exam: Present: alert, strengths equal and symetr throughout - Skin Skin exam: Present: dry, pallor, warm Palliative Quality Palliative Quality: Screen for Code Status: NA (AWaiting son for discussion), Screen for Goals of Care: NA, Screen for Pain: Yes, If Pain Regimen Started, Initiate Bowel Regimen: Yes, Screen for Nausea/Vomitting: Yes Code Status: 11/19/17 13:00 DNR [Resuscitation Status: Active] [RES] Routine Comment: Resuscitation Status: [id number] - Labs CBC & Chem 7: 11/18/17 05:55 11/18/17 05:55 Labs: Laboratory Results - last 24 hr 11/18/17 11/20/17 11:48 05:38 PT 13.0 H INR 1.2 POC Glucose 145 H - ABG Interpretation ABG results: PT/INR, D-dimer PT 13.0 Seconds (9.4-12.1) H 11/20/17 05:38 Consult Discharge Plan - Plan Referrals: Slime Laguna, PIGMENT PUSHER [Primary Care Provider] - Prescriptions: Amoxicillin/Clavulanate [AUGMENTIN Susp] 5 ml PO Q8HR 3 Days #45 mls LORazepam Oral Conc [Ativan Oral Conc] 0.5 mg PO Q4H PRN 4 Days #15 mls PRN Reason: Anxiety MORPHINE SUL Oral CONC [Roxanol Oral Conc] 2.5 - 5 mg PO Q4H PRN 4 Days #15 oral.syg PRN Reason: pain/dyspnea
--- NOTE | 2017-11-21 09:53 | Event Note ---
Date of Encounter: 11/21/17 Time of Encounter: 09:50 Hospice medical charge entry specialist certification of terminal illness: Hospice benefit. Start: 11/20/2017 Hospice benefit. In: +90 days Palliative performance scale: 30-40% History: She with a history of mass in the left lung as well as severe COPD she was also having difficulty with swallowing which was also felt to be secondary to a mass. Mentation were made for J-tube feedings further aggressive care however the patient did not wish to see with these, is to proceed only with comfort care. Due to the difficulty with swallowing, high potential for aspiration and extreme high probability of malignancy which has not been to be treated as well as the patient's dementia and severe protein calorie malnutrition I believe that These findings support a life expectancy of 6 months or less. I attest that I have compose the above narrative based on my review of the patient's medical records, and or on my examination of the patient. Leonides Goldman M.D. Associate medical nurse. [facility]
== END 2017-11-20 14:07 | disposition hospice, home (50) | DRG 166 ==
LOC: 2ANU 10:32 → EMEROO 10:32 → SUATTDRO 14:06 → 2ANU 14:49 → ICNU 11-18 17:31 → 2ANU 11-19 15:47
PROVIDERS: ADMIT Hospitalist; ATTEND Family Medicine
PROC: ENDOEFB (2017-11-18 13:30)